=== PATIENT | female | born 1970 | race Caucasian/White ===

== ENCOUNTER 2016-06-11 18:32 | Inpatient (IN) | payer MEDICAID ==
[~2016-06-11] VITALS: Ht 175.3 cm; Wt 95.6 kg
[~2016-06-11 18:32] MED LIST: HYDR25TA5 PO; LEVO-168 PO; LISI10TA3 PO; LORA-475 PO; METO25TA3 PO; TOBRSUS9 RIGHT EYE
[2016-06-11 18:44] VITALS: BP 109/59; PULSE 124; RESP 16; TEMP 98.9; O2SAT 100
[2016-06-11 19:05] VITALS: O2SAT 100
[2016-06-11] MEDS ORDERED: SODIUM CHLOR 0.9% 1000 ML INJ 1,000 ML IV SCH (19:12)
[2016-06-11] MEDS ORDERED: PANTOPRAZOLE INJ 80 MG in SODIUM CHLORIDE 0.9% INJ 35 ML IV ONE (19:15)
[2016-06-11] MEDS ORDERED: SODIUM CHLORIDE 0.9% FLUSH 10 ML FLUSH IVF PRN (19:15)
[2016-06-11] MEDS ORDERED: ONDANSETRON HCL 4 MG/2 ML VIAL IVP ONE (19:15)
--- NOTE | 2016-06-11 19:20 | PD ---
HPI Chief Complaint: GI Complaint Time Seen by Provider: 19:06 Travel History International Travel<30 days: No Contact w/Intl Traveler<30days: No Traveled to known affect area: No History of Present Illness HPI This 45-year-old female says she been vomiting blood every 2 hours. She has never done this before. She has never had endoscopy done. 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 She's been feeling tired and dizzy. He drinks one to 2 drinks per day. She did have an ultrasound in 2014 which showed abnormal echo texture to the liver and enlarged spleen suggestive of cirrhosis and possible portal hypertension. She has a black stools today. She was taking 2 ibuprofen twice daily but has not taken any today history of Raynaud's. PFSH Past Medical History Hx Anticoagulant Therapy: Yes (8 WEEKS AGO) Asthma: No Autoimmune Disease: No Anxiety: Yes Depression: No Heart Rhythm Problems: No Cancer: No Cardiovascular Problems: Yes High Cholesterol: No Chest Pain: Yes Congestive Heart Failure: No COPD: No Cerebrovascular Accident: No Diabetes: No Diminished Hearing: No Genitourinary: No Headaches: Yes Hypertension: Yes Immune Disorder: No Musculoskeletal: Yes Neurologic: No Psychiatric: Yes Reproductive: No Respiratory: Yes (history of nosebleeds) Immunizations Current: Yes Migraines: Yes Seizures: No Sleep Apnea: No Thyroid Disease: Yes (Hypothyroidism) : 5 Para: 3 Miscarriage: 2 Past Surgical History Abdominal Surgery: No Body Medical Devices: 2 screws in her knee from acl surgery. Cardiac Surgery: No Ear Surgery: No Endocrine Surgery: No Eye Surgery: Yes (Lasik) Genitourinary Surgery: No Gynecologic Surgery: No Oral Surgery: No Thoracic Surgery: No Other Surgery: Yes (lt knee replacement) Social History Alcohol Use: No (QUIT 4 DAYS AGO) Tobacco Use: No Substance Use: No Allergies-Medications (Allergen,Severity, Reaction): Coded Allergies: Codeine (Verified Allergy, Severe, 06/11/16) RASH Darvocet-N 100 (Verified Allergy, Severe, 06/11/16) HIVES Biaxin (Verified Allergy, Intermediate, VOMITING, 06/11/16) Morphine (Verified Allergy, Unknown, HALUCINATIONS, 06/11/16) Reported Meds & Prescriptions Reported Meds & Active Scripts Active Reported Levothyroxine (Levothyroxine Sodium) 112 Mcg Tab 1 Tab PO DAILY Hydrochlorothiazide 25 Mg Tab 1 Tab PO DAILY Metoprolol Tartrate 25 Mg Tab 0.5 Tab PO PRN Review of Systems General / Constitutional: No: Fever Eyes: No: Diploplia, Blurred Vision HENT: No: Headaches, Vertigo Cardiovascular: No: Chest Pain or Discomfort, Palpitations Respiratory: No: Cough, Shortness of Breath Gastrointestinal: Positive: Vomiting Genitourinary: No: Frequency, Dysuria Musculoskeletal: No: Myalgias, Arthralgias Skin: No Rash Neurologic: Positive: Weakness, Dizziness Hematologic/Lymphatic: No: Easy Bruising Physical Exam Narrative GENERAL: Well-developed female. She has vomited blood while here SKIN: Focused skin assessment warm/dry. She does have some spider angioma HEAD: Atraumatic. Normocephalic. EYES: Pupils equal and round. No scleral icterus. No injection or drainage. ENT: No nasal bleeding or discharge. Mucous membranes pink and moist. NECK: Trachea midline. No JVD. CARDIOVASCULAR: Regular rate and rhythm. No murmur appreciated. RESPIRATORY: No accessory muscle use. Clear to auscultation. Breath sounds equal bilaterally. GASTROINTESTINAL: Abdomen soft, non-tender, nondistended. Hepatic and splenic margins not palpable. MUSCULOSKELETAL: No obvious deformities. No clubbing. No cyanosis. No edema. NEUROLOGICAL: Awake and alert. No obvious cranial nerve deficits. Motor grossly within normal limits. Normal speech. PSYCHIATRIC: Appropriate mood and affect; insight and judgment normal. Data Data Last Documented VS Vital Signs Date Time Temp Pulse Resp B/P Pulse Ox O2 Delivery O2 Flow Rate FiO2 06/11/16 18:44 98.9 124 16 109/59 100 Orders Complete Blood Count With Diff (06/11/16 19:12) Prothrombin Time / Inr (Pt) (06/11/16 19:12) Act Partial Throm Time (Ptt) (06/11/16 19:12) Alcohol (Ethanol) (06/11/16 19:12) Urinalysis - C+S If Indicated (06/11/16 19:12) Ecg Monitoring (06/11/16 19:12) Iv Access Insert/Monitor (06/11/16 19:12) Oximetry (06/11/16 19:12) Ondansetron Inj (Zofran Inj) (06/11/16 19:15) Sodium Chlor 0.9% 1000 Ml Inj (Ns 1000 M (06/11/16 19:12) Sodium Chloride 0.9% Flush (Ns Flush) (06/11/16 19:15) Pantoprazole Inj (Protonix Inj) (06/11/16 19:15) Pantoprazole Inj (Protonix Inj) (06/11/16 19:15) Phytonadione Inj (Vitamin K Inj) (06/11/16 20:15) Octreotide Inj (Sandostatin Inj) (06/11/16 22:15) Admit Order (Ed Use Only) (06/11/16 20:11) Labs Laboratory Tests Test 06/11/16 19:15 White Blood Count 8.5 TH/MM3 Red Blood Count 3.04 MIL/MM3 Hemoglobin 10.0 GM/DL Hematocrit 29.9 % Mean Corpuscular Volume 98.4 FL Mean Corpuscular Hemoglobin 33.0 PG Mean Corpuscular Hemoglobin 33.6 % Concent Red Cell Distribution Width 15.2 % Platelet Count 87 TH/MM3 Mean Platelet Volume 9.0 FL Neutrophils (%) (Auto) 81.3 % Lymphocytes (%) (Auto) 12.4 % Monocytes (%) (Auto) 5.6 % Eosinophils (%) (Auto) 0.0 % Basophils (%) (Auto) 0.7 % Neutrophils # (Auto) 6.8 TH/MM3 Lymphocytes # (Auto) 1.1 TH/MM3 Monocytes # (Auto) 0.5 TH/MM3 Eosinophils # (Auto) 0.0 TH/MM3 Basophils # (Auto) 0.1 TH/MM3 CBC Comment AUTO DIFF Prothrombin Time 21.4 SEC Prothromb Time International 1.9 RATIO Ratio Activated Partial 31.7 SEC Thromboplast Time Ethyl Alcohol Level 91 MG/DL [facility] Medical Decision Making Medical Screen Exam Complete: Yes Emergency Medical Condition: Yes Medical Record Reviewed: Yes Differential Diagnosis Differential includes GI bleed, coagulopathy, varices, portal hypertension Narrative Course Hemoglobin is 10. Her INR is 1.9. She has been given vitamin K. In giving fluids cautiously. She is quite adamant that she will not accept blood products including fresh frozen plasma. Case discussed with Dr. Cardenas She' ll be admitted to the intensive care unit Diagnosis Primary Impression: GI bleed Admitting Information Admitting Physician Requests: Admit Orville Flores MD Jun 11, 2016 19:20
[2016-06-11 19:41] LABS: AUTOMATED NEUTROPHIL # 6.8 TH/MM3 (1.8-7.7); BASOPHIL # 0.1 TH/MM3 (0-0.2); BASOPHIL % 0.7 % (0.0-2.0); HEMATOCRIT 29.9 % (35.0-46.0); LYMPH % 12.4 % (9.0-44.0); LYMPHOCYTE # 1.1 TH/MM3 (1.0-4.8); MEAN CELL VOLUME 98.4 FL (80.0-100.0); MEAN CORPUSCULAR HGB CONC 33.6 % (32.0-36.0); MONO % 5.6 % (0.0-8.0); NEUT % 81.3 % (16.0-70.0); PLATELET COUNT 87 TH/MM3 (150-450); RED BLOOD COUNT 3.04 MIL/MM3 (4.00-5.30); RED CELL DISTRIBUTION WIDTH 15.2 % (11.6-17.2); WHITE BLOOD COUNT 8.5 TH/MM3 (4.0-11.0)
[2016-06-11 19:53] LABS: APTT (PATIENT) 31.7 SEC (24.3-30.1); INTERNATIONAL NORMALIZED RATIO 1.9 RATIO; PROTHROMBIN TIME - PATIENT 21.4 SEC (9.8-11.6)
[2016-06-11] MEDS: PANTOPRAZOLE INJ 80 MG in SODIUM CHLORIDE 0.9% INJ 100 ML IV SCH (19:56)
[2016-06-11 20:04] LABS: HEMO FLAGS AUTO DIFF
[2016-06-11] MEDS ORDERED: PHYTONADIONE 10 MG/ML VIAL SQ ONE (20:15)
[2016-06-11 20:35] VITALS: BP 97/49; PULSE 108; RESP 18; TEMP 97.9; O2SAT 97
[2016-06-11 20:40] LABS: PLATELET ESTIMATE SMEAR LOW (NORMAL); PLATELET MORPHOLOGY ENLARGED (NORMAL); SCAN/DIFF AUTO DIFF CONFIRMED
[2016-06-11] MEDS: OCTREOTIDE INJ 500 MCG in SODIUM CHLORID 0.9% 500 ML INJ 499.5 ML IV SCH (21:06)
[2016-06-11 21:22] LABS: CHLORIDE 104 MEQ/L (98-107); POTASSIUM 4.7 MEQ/L (3.5-5.1); SODIUM (NA) 146 MEQ/L (136-145)
[2016-06-11 21:25] LABS: BLOOD UREA NITROGEN 27 MG/DL (7-18)
[2016-06-11 21:28] LABS: AST (GOT) 169 U/L (15-37); GLOMERULAR FILTRATION RATE 53 ML/MIN (>89)
[2016-06-11 21:30] VITALS: BP 99/42; PULSE 102; RESP 16; O2SAT 97
[2016-06-11 21:30] LABS: TOTAL BILIRUBIN ADULT 4.7 MG/DL (0.2-1.0)
[2016-06-11 21:34] LABS: ANION GAP 16 MEQ/L (5-15); BICARBONATE 25.6 MEQ/L (21.0-32.0)
[2016-06-11 21:38] LABS: ALT (GPT) 84 U/L (10-53)
[2016-06-11 21:41] LABS: ALKALINE PHOSPHATASE 79 U/L (45-117)
[2016-06-11 21:42] LABS: BLOOD, URINE NEG (NEG); GLUCOSE,URINE NEG (NEG); KETONE, URINE 15 mg/dL (NEG); NITRITE,URINE NEG (NEG)
[2016-06-11] MEDS ORDERED: ONDANSETRON HCL 4 MG/2 ML VIAL IV PUSH ONE (21:45)
[2016-06-11 21:47] LABS: URINE COLOR AMBER (YELLW/STRAW)
[2016-06-11 21:49] LABS: HYALINE CAST, URINE 0-2 /lpf (RARE)
[2016-06-11 21:50] LABS: RBC, URINE 0-3 /hpf (0-3); SQUAMOUS EPITHELIAL CELL URINE 0-5 /hpf (0-5); WBC, URINE 0-2 /hpf (0-5)
[2016-06-11 21:51] LABS: COMMENT (UR) CULT NOT INDICATED; CULTURE IF INDICATED CULT NOT INDICATED; MUCUS URINE FEW /lpf (OCC)
[2016-06-11] MEDS ORDERED: PROCHLORPERAZINE INJ 10 MG/2 ML VIAL IV PUSH ONE (22:00)
[2016-06-11 22:51] VITALS: BP 98/46; PULSE 112; RESP 16; TEMP 98.6; O2SAT 97
[2016-06-12] VITALS (16 sets, daily range): BP systolic 92–110; BP diastolic 50–57; PULSE 72–116; RESP 16–23; TEMP 98.4–99.5; O2SAT 94–100
--- NOTE | 2016-06-12 02:28 | HHI.HP ---
HPI Service Critical Care Medicine Primary Care Physician Oren Arceo Admission Diagnosis GI BLEED Diagnosis: Travel History International Travel<30 Days: No Contact w/Intl Traveler <30 Da: No Traveled to Known Affected Are: No History of Present Illness 45-year-old female , [facility] presented to [facility] emergency department due to she been vomiting blood every 2 hours. She has never done this before. She has never had endoscopy done. She refuses blood products due to early degenerative. She's been feeling tired and dizzy. She usually drinks one to 2 alcohol beverages per day. She did have an ultrasound in 2015 which showed abnormal echo texture to the liver and enlarged spleen suggestive of cirrhosis and possible portal hypertension. She has had a melanotic stool today and was also taking 2 ibuprofen twice daily for a history of Raynaud's. Review of Systems Constitutional: COMPLAINS OF: Fatigue, DENIES: Diaphoretic episodes, Fever, Weight gain, Weight loss, Chills, Dizziness, Change in appetite, Night Sweats Endocrine: DENIES: Abnorml menstrual pattern, Heat/cold intolerance, Polydipsia , Polyuria, Polyphagia Eyes: DENIES: Blurred vision, Diplopia, Eye inflammation, Eye pain, Vision loss , Photosensitivity, Double Vision Ears, nose, mouth, throat: DENIES: Tinnitus, Hearing loss, Vertigo, Nasal discharge, Oral lesions, Throat pain, Hoarseness, Ear Pain, Running Nose, Epistaxis, Sinus Pain, Toothache, Odynophagia Respiratory: DENIES: Apneas, Cough, Snoring, Wheezing, Hemoptysis, Sputum production, Shortness of breath Cardiovascular: DENIES: Chest pain, Palpitations, Syncope, Dyspnea on Exertion , PND, Lower Extremity Edema, Orthopnea, Claudication Gastrointestinal: COMPLAINS OF: Black stools, Bloody stools, Vomiting, DENIES : Abdominal pain, Constipation, Diarrhea, Nausea, Difficulty Swallowing, Anorexia Genitourinary: DENIES: Abnormal vaginal bleeding, Dysmenorrhea, Dyspareunia, Sexual dysfunction, Urinary frequency, Urinary incontinence, Urgency, Hematuria , Dysuria, Nocturia, Vaginal discharge Musculoskeletal: DENIES: Joint pain, Muscle aches, Stiffness, Joint Swelling, Back pain, Neck pain Integumentary: DENIES: Abnormal pigmentation, Pruritus, Rash, Nail changes, Breast masses, Breast skin changes, Nipple discharge Hematologic/lymphatic: DENIES: Bruising, Lymphadenopathy Immunologic/allergic: DENIES: Eczema, Urticaria Neurologic: DENIES: Abnormal gait, Headache, Localized weakness, Paresthesias, Seizures, Speech Problems, Tremor, Poor Balance Psychiatric: COMPLAINS OF: Anxiety, DENIES: Confusion, Mood changes, Depression, Hallucinations, Agitation, Suicidal Ideation, Homicidal Ideation, Delusions Past Family Social History Allergies: Coded Allergies: Codeine (Verified Allergy, Severe, 06/11/16) RASH Darvocet-N 100 (Verified Allergy, Severe, 06/11/16) HIVES Biaxin (Verified Allergy, Intermediate, VOMITING, 06/11/16) Morphine (Verified Allergy, Unknown, HALUCINATIONS, 06/11/16) Past Medical History Hypertension Raynaud's disease Anxiety Hypothyroidism Past Surgical History Eye LASIK surgery Cardiac cath 01/22 Reported Medications Reported Meds & Active Scripts Active Reported Levothyroxine (Levothyroxine Sodium) 112 Mcg Tab 1 Tab PO DAILY Hydrochlorothiazide 25 Mg Tab 1 Tab PO DAILY Metoprolol Tartrate 25 Mg Tab 0.5 Tab PO PRN Active Ordered Medications Current Medications Medications (Trade) Dose Ordered Sig/Miya Route PRN Reason Start Time Stop Time Status Last Admin Dose Admin Sodium Chloride 2 ml 2 ml UNSCH PRN IVF FLUSH AFTER USING IV ACCESS 06/11/16 19:15 Pantoprazole Sodium 80 mg/ Sodium Chloride 100 ml @ 10 mls/hr Q10H IV 06/11/16 19:15 06/11/16 19:56 Octreotide Acetate 500 mcg/ Sodium Chloride 500.0 ml @ 50 mls/hr Q10H IV 06/11/16 22:15 06/11/16 21:06 Sodium Chloride (NS 1000 ml Inj) 1,000 ml @ 125 mls/hr Q8H IV 06/12/16 02:24 Acetaminophen (Tylenol) 650 mg Q6H PRN PO PAIN 1-10 AND/OR FEVER >101F 06/12/16 02:30 Morphine Sulfate (Morphine Inj) 2 mg Q2H PRN IV PAIN SCALE 6 TO 10 06/12/16 02:30 Lorazepam (Ativan Inj) 2 mg Q4H PRN IV Agitation/Sedation 06/12/16 02:30 Ondansetron HCl (Zofran Inj) 4 mg Q6H PRN IV NAUSEA OR VOMITING 06/12/16 02:30 Metoclopramide HCl (Reglan Inj) 10 mg Q6H PRN IV NAUSEA OR VOMITING 06/12/16 02:30 Miscellaneous Information 1 Q361D XX 06/12/16 02:30 Chlorhexidine Gluconate (Chlorhexidine 2% Cloth) 3 pack Taper DAILY@04 TOP 06/12/16 04:00 06/08/17 03:59 Chlorhexidine Gluconate (Chlorhexidine 2% Cloth) 3 pack UNSCH PRN TOP HYGIENIC CARE 06/12/16 02:30 Levothyroxine Sodium (Synthroid) 112 mcg DAILY@06 PO 06/12/16 06:00 Family History Noncontributory Social History She drinks 2 alcoholic beverages per day Denies smoking or illicit drug abuse Physical Exam Vital Signs Vital Signs Date Time Temp Pulse Resp B/P Pulse Ox O2 Delivery O2 Flow Rate FiO2 06/12/16 01:20 116 16 92/50 96 Room Air 06/12/16 00:10 110 16 104/50 97 Room Air 06/11/16 23:00 16 06/11/16 22:51 98.6 112 16 98/46 97 Room Air 06/11/16 21:30 102 16 99/42 97 Room Air 06/11/16 20:35 97.9 108 18 97/49 97 Room Air 06/11/16 20:25 16 06/11/16 19:05 100 Room Air 06/11/16 18:44 98.9 124 16 109/59 100 Physical Exam GENERAL: Well-nourished, well-developed patient. No acute distress SKIN: Warm and dry. HEAD: Normocephalic. EYES: No scleral icterus. No injection or drainage. NECK: Supple, trachea midline. No JVD or lymphadenopathy. CARDIOVASCULAR: Regular rate and rhythm without murmurs, gallops, or rubs. RESPIRATORY: Breath sounds equal bilaterally. No accessory muscle use. GASTROINTESTINAL: Abdomen soft, non-tender, nondistended. MUSCULOSKELETAL: No cyanosis, or edema. BACK: Nontender without obvious deformity. No CVA tenderness. EXTREMITIES: No clubbing cyanosis or edema Laboratory Laboratory Tests Test 06/11/16 06/11/16 19:15 21:20 White Blood Count 8.5 Red Blood Count 3.04 Hemoglobin 10.0 Hematocrit 29.9 Mean Corpuscular Volume 98.4 Mean Corpuscular Hemoglobin 33.0 Mean Corpuscular Hemoglobin 33.6 Concent Red Cell Distribution Width 15.2 Platelet Count 87 Mean Platelet Volume 9.0 Neutrophils (%) (Auto) 81.3 Lymphocytes (%) (Auto) 12.4 Monocytes (%) (Auto) 5.6 Eosinophils (%) (Auto) 0.0 Basophils (%) (Auto) 0.7 Neutrophils # (Auto) 6.8 Lymphocytes # (Auto) 1.1 Monocytes # (Auto) 0.5 Eosinophils # (Auto) 0.0 Basophils # (Auto) 0.1 CBC Comment AUTO DIFF Differential Comment AUTO DIFF CONFIRMED Platelet Estimate LOW Platelet Morphology Comment ENLARGED Prothrombin Time 21.4 Prothromb Time International 1.9 Ratio Activated Partial 31.7 Thromboplast Time Sodium Level 146 Potassium Level 4.7 Chloride Level 104 Carbon Dioxide Level 25.6 Anion Gap 16 Blood Urea Nitrogen 27 Creatinine 1.10 Estimat Glomerular Filtration 53 Rate Random Glucose 153 Calcium Level 8.0 Total Bilirubin 4.7 Aspartate Amino Transf 169 (AST/SGOT) Alanine Aminotransferase 84 (ALT/SGPT) Alkaline Phosphatase 79 Total Protein 6.2 Albumin 2.8 Ethyl Alcohol Level 91 Urine Color INOCENCIO Urine Turbidity CLEAR Urine pH 6.0 Urine Specific [place] 1.022 Urine Protein NEG Urine Glucose (UA) NEG Urine Ketones 15 Urine Occult Blood NEG Urine Nitrite NEG Urine Bilirubin SMALL Urine Leukocyte Esterase NEG Urine RBC 0-3 Urine WBC 0-2 Urine Squamous Epithelial 0-5 Cells Urine Hyaline Casts 0-2 Urine Mucus FEW Microscopic Urinalysis Comment CULT NOT INDICATED Result Diagram: 06/11/16191406/11/161914 Assessment and Plan Assessment and Plan Hematemesis - Possibly variceal bleed - Portal hypertension - Admit to ICU - Serial H&H - Octreotide drip - Protonix drip - GI consult appreciated Hypothyroidism - Thyroxine Anemia - Due to above - Monitor serial H&H - Transfuse for hemoglobin less than 7 Questionable alcohol abuse - WA protocol - Monitor for withdrawal DVT GI prophylaxis - Teds SCDs - No Pharmacal prophylaxis due to GI bleed - Protonix drip Critical Care: The total critical care time was 35 minutes. Time to perform other separately billable procedures was not included in the critical care time. Bola Norton MD Jun 12, 2016 02:28
[2016-06-12] MEDS ORDERED: RESP: ALBUTEROL 2.5 MG/IPRATROPIUM 0.5 MG NEB (PRN) INH (02:30)
[2016-06-12] MEDS ORDERED: CHLORHEXIDINE GLUCONATE 2 % 1 PACK (2 CLOTHS) TOP PRN (02:30)
[2016-06-12] MEDS ORDERED: ONDANSETRON HCL 4 MG/2 ML VIAL IV PRN (02:30)
[2016-06-12] MEDS ORDERED: MISCELLANEOUS NURSING INFORMATION XX SCH (02:30)
[2016-06-12] MEDS ORDERED: MORPHINE SULFATE 4 MG/ML INJ IV PRN (02:30)
[2016-06-12] MEDS ORDERED: METOCLOPRAMIDE HCL 10 MG/2 ML VIAL IV PRN (02:30)
[2016-06-12] MEDS ORDERED: ACETAMINOPHEN 325 MG TAB PO PRN (02:30)
[2016-06-12 03:38] LABS: INTERNATIONAL NORMALIZED RATIO 2.1 RATIO; PROTHROMBIN TIME - PATIENT 23.5 SEC (9.8-11.6)
[2016-06-12 03:56] LABS: INDIRECT BILIRUBIN 2.5 MG/DL (0.0-0.8); TOTAL BILIRUBIN ADULT 5.6 MG/DL (0.2-1.0)
[2016-06-12] MEDS: CHLORHEXIDINE GLUCONATE 2 % 1 PACK (2 CLOTHS) TOP SCH (04:00)
[2016-06-12] MEDS: SODIUM CHLOR 0.9% 1000 ML INJ 1,000 ML IV SCH ×3 (04:05→18:24)
[2016-06-12] MEDS: PANTOPRAZOLE INJ 80 MG in SODIUM CHLORIDE 0.9% INJ 100 ML IV SCH ×3 (04:05→17:17)
[2016-06-12] MEDS ORDERED: LORazepam 2 MG/ML VIAL IV SCH (06:00)
[2016-06-12] MEDS ORDERED: FLUMAZENIL 0.5 MG/5 ML VIAL IV PUSH PRN (06:15)
[2016-06-12] MEDS ORDERED: LORazepam 2 MG/ML VIAL IV PUSH PRN ×4 (06:15)
[2016-06-12] MEDS ORDERED: LORazepam 2 MG TAB PO PRN (06:15)
[2016-06-12] MEDS ORDERED: SODIUM CHLORIDE 0.9% FLUSH 10 ML FLUSH IV FLUSH PRN (06:15)
[2016-06-12] MEDS: LEVOTHYROXINE SODIUM 112 MCG TAB PO SCH (06:19)
[2016-06-12] MEDS: OCTREOTIDE INJ 500 MCG in SODIUM CHLORID 0.9% 500 ML INJ 499.5 ML IV SCH ×2 (07:15→16:40)
[2016-06-12] MEDS: SODIUM CHLORIDE 0.9% FLUSH 10 ML FLUSH IV FLUSH SCH ×2 (08:07→21:00)
[2016-06-12] MEDS: MULTIVITAMIN INJ 10 ML, FOLIC ACID INJ 1 MG in SODIUM CHLORID 0.9% 500 ML INJ 500 ML IV SCH (08:07)
--- NOTE | 2016-06-12 08:43 | PD.CONS ---
HPI History of Present Illness This is a 45 year old female patient who came to the ER yesterday for hematemesis. She was given Ativan this am at 0619 and is currently very lethargic. She will wake up, but drifts back to sleep before answering any questions and is unable to provide any history. The history has been obtained from her mother (who is at the bedside) and the EMR. Her mother reports that she is a Jehovah Witness and does not want any blood products. Her mother reports that she started vomiting dark blood yesterday- about 1 cup every 2 hours. Her mother reports that she denied abdominal pain yesterday. Her mother also reports that she has never had GI bleeding in the past. There was mention of a melanotic stool yesterday. According to the EMR, she has been taking 2 ibuprofen twice daily for pain associated with Raynaud's. Her mother reports that she has cut back her drinking to 2 drinks per day. Of note, she had an US of her liver (01/31/15) and this revealed heterogeneous echotexture of the liver with enlargement of the spleen suggesting cirrhosis and portal hypertension. No ascites is seen within the abdomen. According to the mother, she has not had any further bleeding since [place]. (Lilian Hays) PFSH Past Medical History Raynaud's Liver cirrhosis Portal HTN ETOH abuse Anxiety HTN Hypothyroidism Past Surgical History LASIK surgery Cardiac catheterization (Lilian Hays) Coded Allergies: Codeine (Verified Allergy, Severe, 06/11/16) RASH Darvocet-N 100 (Verified Allergy, Severe, 06/11/16) HIVES Biaxin (Verified Allergy, Intermediate, VOMITING, 06/11/16) Morphine (Verified Allergy, Unknown, HALUCINATIONS, 06/11/16) Medications Allergies Coded Allergies Type Severity Reaction Last Updated Verified Codeine Allergy Severe 06/11/16 Yes Darvocet-N 100 Allergy Severe 06/11/16 Yes Biaxin Allergy Intermediate VOMITING 06/11/16 Yes Morphine Allergy Unknown HALUCINATIONS 06/11/16 Yes Active Scripts Medications Dose Route/Sig Days Date Category Levothyroxine (Levothyroxine Sodium) 112 Mcg Tab 1 Tab PO DAILY 02/09/16 Reported Hydrochlorothiazide 25 Mg Tab 1 Tab PO DAILY 02/09/16 Reported Metoprolol Tartrate 25 Mg Tab 0.5 Tab PO PRN 02/09/16 Reported Family History Noncontributory Social History She drinks 2 alcoholic beverages per day Denies smoking or illicit drug abuse (Lilian Hays) Review of Systems Gastrointestinal: COMPLAINS OF: Black stools, Nausea, Vomiting, Hematemesis ROS P)t lethargic after ativan- unable to provide hx (Lilian Hays) GI Exam Vitals I&O Vital Signs Date Time Temp Pulse Resp B/P Pulse Ox O2 Delivery O2 Flow Rate FiO2 06/12/16 06:00 98.8 101 16 100/55 95 06/12/16 06:00 100 06/12/16 04:00 99.1 100 16 102/57 100 06/12/16 04:00 80 06/12/16 03:01 100 Nasal Cannula 2.00 06/12/16 03:00 88 Nasal Cannula 2.00 06/12/16 02:00 104 06/12/16 01:20 116 16 92/50 96 Room Air 06/12/16 00:10 110 16 104/50 97 Room Air 06/11/16 23:00 16 06/11/16 22:51 98.6 112 16 98/46 97 Room Air 06/11/16 21:30 102 16 99/42 97 Room Air 06/11/16 20:35 97.9 108 18 97/49 97 Room Air 06/11/16 20:25 16 06/11/16 19:05 100 Room Air 06/11/16 18:44 98.9 124 16 109/59 100 I/O 06/11/16 06/11/16 06/11/16 06/12/16 06/12/16 06/12/16 07:00 15:00 23:00 07:00 15:00 23:00 Intake Total 50 ml 3562 ml Output Total 600 ml 0 ml Balance -550 ml 3562 ml Intake Oral 0 ml IV Total 50 ml 3562 ml Output Urine Total 0 ml Emesis 600 ml Laboratory Test 06/11/16 06/11/16 06/12/16 19:15 21:20 03:09 White Blood Count 8.5 TH/MM3 Red Blood Count 3.04 MIL/MM3 Hemoglobin 10.0 GM/DL Hematocrit 29.9 % Mean Corpuscular Volume 98.4 FL Mean Corpuscular Hemoglobin 33.0 PG Mean Corpuscular Hemoglobin 33.6 % Concent Red Cell Distribution Width 15.2 % Platelet Count 87 TH/MM3 Mean Platelet Volume 9.0 FL Neutrophils (%) (Auto) 81.3 % Lymphocytes (%) (Auto) 12.4 % Monocytes (%) (Auto) 5.6 % Eosinophils (%) (Auto) 0.0 % Basophils (%) (Auto) 0.7 % Neutrophils # (Auto) 6.8 TH/MM3 Lymphocytes # (Auto) 1.1 TH/MM3 Monocytes # (Auto) 0.5 TH/MM3 Eosinophils # (Auto) 0.0 TH/MM3 Basophils # (Auto) 0.1 TH/MM3 CBC Comment AUTO DIFF Differential Comment AUTO DIFF CONFIRMED Platelet Estimate LOW Platelet Morphology Comment ENLARGED Prothrombin Time 21.4 SEC 23.5 SEC Prothromb Time International 1.9 RATIO 2.1 RATIO Ratio Activated Partial 31.7 SEC Thromboplast Time Sodium Level 146 MEQ/L Potassium Level 4.7 MEQ/L Chloride Level 104 MEQ/L Carbon Dioxide Level 25.6 MEQ/L Anion Gap 16 MEQ/L Blood Urea Nitrogen 27 MG/DL Creatinine 1.10 MG/DL Estimat Glomerular Filtration 53 ML/MIN Rate Random Glucose 153 MG/DL Calcium Level 8.0 MG/DL Total Bilirubin 4.7 MG/DL 5.6 MG/DL Aspartate Amino Transf 169 U/L 161 U/L (AST/SGOT) Alanine Aminotransferase 84 U/L 80 U/L (ALT/SGPT) Alkaline Phosphatase 79 U/L 65 U/L Total Protein 6.2 GM/DL 5.5 GM/DL Albumin 2.8 GM/DL 2.5 GM/DL Ethyl Alcohol Level 91 MG/DL Urine Color INOCENCIO Urine Turbidity CLEAR Urine pH 6.0 Urine Specific [place] 1.022 Urine Protein NEG mg/dL Urine Glucose (UA) NEG mg/dL Urine Ketones 15 mg/dL Urine Occult Blood NEG Urine Nitrite NEG Urine Bilirubin SMALL Urine Leukocyte Esterase NEG Urine RBC 0-3 /hpf Urine WBC 0-2 /hpf Urine Squamous Epithelial 0-5 /hpf Cells Urine Hyaline Casts 0-2 /lpf Urine Mucus FEW /lpf Microscopic Urinalysis Comment CULT NOT INDICATED Direct Bilirubin 3.1 MG/DL Indirect Bilirubin 2.5 MG/DL Ammonia 82 MCMOL/L Physical Examination HEENT: Normocephalic; atraumatic; no jaundice. CHEST: CTA CARDIAC: RRR ABDOMEN: Soft, nondistended, nontender; hepatosplenomegaly; bowel sounds are present in all four quadrants. EXTREMITIES: No clubbing, cyanosis, or edema. SKIN: Normal; no rash; no jaundice. 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 Mother reports hx of "liver issues." 2015 US consistent with cirrhosis and portal htn. Pt continues to drink 2 ETOH drinks per day. Came to ER with vomiting dark red blood- 1 cup q2h yest. Has not vomited since [place]. HH stable 10.0/29.9. Protonix Gtt. Octreotide Gtt. Takes Ibuprofen ii po BID. - Anemia, acute blood loss. HH stable 10.0/29.9. PT Jehovah Witness - Elevated LFTs. T> Bili 5.6, Direct 3.1, Indirect 2.5, AST 161, ALT 80, Alk Phosph 65. - Hepatic encephalopathy. Ammonia 82. Will start Lactulose. - Coagulopathy. INR 2.1. Does not want blood products. - Liver cirrhosis, portal htn. She appears to have had this at least as far back as 2014. She continues to drink - Hypothyroidism. Per primary. - PT IS A JEHOVAH WITNESS. NO BLOOD PRODUCTS. PLAN: - Plan for egd with possible band ligation - Obtain consents - NPO - Cont. Octreotide - Cont. Protonix Gtt - Lactulose 30mL po BID - CBC, CMP, PT/INR - No Blood Products - Supportive care - Further recommendations to follow based on results of above - Pt seen and examined by Dr. Melgoza and myself and this note is written on his behalf (Lilian Hays) Physician Comments Seen and examined with DON, admitted with gi bleed in the back ground of cirrhosis. Egd planned for today. Will follow, thank you (Kita Melgoza MD) Lilian Hays Jun 12, 2016 08:43 Kita Melgoza MD Jun 12, 2016 11:13
[2016-06-12] MEDS: LACTULOSE SYRUP 20 GM/30 ML CUP PO SCH ×2 (09:46→21:25)
[2016-06-12] MEDS ORDERED: PHYTONADIONE 10 MG/ML VIAL SQ ONE (10:15)
[2016-06-12] MEDS ORDERED: ONDANSETRON HCL 4 MG/2 ML VIAL IV PUSH ONE (12:47)
[2016-06-12] MEDS ORDERED: PHENYLEPHRINE HCL 10 MG/ML VIAL IV ONE (12:50)
[2016-06-12] MEDS ORDERED: PROPOFOL 200 MG/20 ML AMP IV ONE (12:50)
--- NOTE | 2016-06-12 12:57 | GIPROC ---
[facility] [address] [facility] [address]. [facility], [address] EGD PROCEDURE REPORT EXAM DATE: 06/12/2016 PATIENT NAME: Nava Joe MR #: [id number] BIRTHDATE: 1970 ATTENDING: Kita Melgoza MD ORDER #: [id number] EDITOR INDEX: Chevy Houser and Margaux Cabrera STATUS: inpatient INDICATIONS: The patient is a 45 yr old female here for an EGD due to Cirrhosis and melena PROCEDURE PERFORMED: EGD, diagnostic MEDICATIONS: Per Anesthesia and None. TOPICAL ANESTHETIC: CONSENT: The patient understands the risks and benefits of the procedure and understands that these risks include, but are not limited to: sedation, allergic reaction, infection, perforation and/or bleeding. Alternative means of evaluation and treatment include, among others: physical exam, x-rays, and/or surgical intervention. The patient elects to proceed with this endoscopic procedure. medical equipment was checked for proper function. Hand hygiene and appropriate measures for infection prevention was taken. After the risks, benefits and alternatives of the procedure were thoroughly explained, Informed consent was verified, confirmed and timeout was successfully executed by the treatment team. The patient was anesthetized with topical anesthesia and the Pentax EG-[id number] endoscope was introduced through the mouth and advanced to the second portion of the duodenum. Retroflexed views revealed no abnormalities The gastroscope was then slowly withdrawn and removed. ESOPHAGUS: There was LA Class A esophagitis noted. There was a single small varix in the distal esophagus. There was evidence of prior scarring and a red nora sign. STOMACH: There was moderate and erosive gastritis in the gastric antrum. Moderate portal hypertensive gastropathy was found in the gastric fundus. ADVERSE EVENTS: There were no complications. IMPRESSIONS: 1. There was LA Class A esophagitis noted 2. There was gastritis in the gastric antrum 3. Portal hypertensive gastropathy was found in the gastric fundus 4. Retroflexed views revealed no abnormalities RECOMMENDATIONS: 1. Anti-reflux regimen 2. Continue PPI 3. Avoid NSAIDS 4. Avoid ETOH, Continue PPI, and Octreotide. PATIENT CONDITION: stable DISPOSITION: Inpatient REPEAT EXAM: Return 3 months EGD with sclerotherapy Kita Melgoza MD eSigned: Kita Melgoza MD 06/12/2016 12:56 PM cc: PATIENT NAME: Nava Joe MR#: [id number]
[2016-06-12] MEDS ORDERED: DO NOT ADM ANY ANTICOAGULANT DRUGS PRN (13:02)
[2016-06-13] VITALS (16 sets, daily range): BP systolic 98–130; BP diastolic 52–82; PULSE 82–127; RESP 20–29; TEMP 98.5–99.3; O2SAT 94–100
[2016-06-13] MEDS: SODIUM CHLOR 0.9% 1000 ML INJ 1,000 ML IV SCH ×4 (01:48→18:10)
[2016-06-13] MEDS: CHLORHEXIDINE GLUCONATE 2 % 1 PACK (2 CLOTHS) TOP SCH (03:25)
[2016-06-13 04:31] LABS: AUTOMATED NEUTROPHIL # 4.3 TH/MM3 (1.8-7.7); BASOPHIL # 0.1 TH/MM3 (0-0.2); BASOPHIL % 1.1 % (0.0-2.0); EOSINOPHIL # 0.2 TH/MM3 (0-0.4); EOSINOPHIL % 2.7 % (0.0-4.0); LYMPH % 16.4 % (9.0-44.0); MEAN CELL VOLUME 101.3 FL (80.0-100.0); MEAN CORPUSCULAR HEMOGLOBIN 34.7 PG (27.0-34.0); MEAN CORPUSCULAR HGB CONC 34.2 % (32.0-36.0); MONO % 9.6 % (0.0-8.0); NEUT % 70.2 % (16.0-70.0); PLATELET COUNT 47 TH/MM3 (150-450); RED BLOOD COUNT 1.95 MIL/MM3 (4.00-5.30); RED CELL DISTRIBUTION WIDTH 15.9 % (11.6-17.2); WHITE BLOOD COUNT 6.1 TH/MM3 (4.0-11.0)
[2016-06-13 04:33] LABS: HEMO FLAGS AUTO DIFF
[2016-06-13 04:40] LABS: HEMATOCRIT 19.7 % (35.0-46.0)
[2016-06-13 04:44] LABS: PROTHROMBIN TIME - PATIENT 23.2 SEC (9.8-11.6)
[2016-06-13 04:51] LABS: BICARBONATE 28.8 MEQ/L (21.0-32.0); CALCIUM-PROTEIN CORRECTED 7.7 MG/DL (8.5-10.1); MAGNESIUM 1.6 MG/DL (1.5-2.5); POTASSIUM 3.8 MEQ/L (3.5-5.1); TOTAL BILIRUBIN ADULT 4.4 MG/DL (0.2-1.0)
[2016-06-13] MEDS: OCTREOTIDE INJ 500 MCG in SODIUM CHLORID 0.9% 500 ML INJ 499.5 ML IV SCH ×2 (04:51→14:15)
[2016-06-13] MEDS: LEVOTHYROXINE SODIUM 112 MCG TAB PO SCH (06:02)
[2016-06-13 06:12] LABS: SCAN/DIFF AUTO DIFF CONFIRMED
[2016-06-13 06:13] LABS: PLATELET ESTIMATE SMEAR LOW (NORMAL); PLATELET MORPHOLOGY ENLARGED (NORMAL)
[2016-06-13] MEDS ORDERED: EPOETIN ALFA 40,000 UNITS/ML VIAL SQ ONE (07:30)
[2016-06-13] MEDS ORDERED: CYANOCOBALAMIN 1000 MCG/ML VIAL IM ONE (07:45)
[2016-06-13] MEDS: MULTIVITAMIN INJ 10 ML, FOLIC ACID INJ 1 MG in SODIUM CHLORID 0.9% 500 ML INJ 500 ML IV SCH (08:34)
[2016-06-13] MEDS: LACTULOSE SYRUP 20 GM/30 ML CUP PO SCH ×2 (08:34→21:26)
[2016-06-13] MEDS: PANTOPRAZOLE INJ 80 MG in SODIUM CHLORIDE 0.9% INJ 100 ML IV SCH ×2 (08:34→18:47)
[2016-06-13] MEDS: SODIUM CHLORIDE 0.9% FLUSH 10 ML FLUSH IV FLUSH SCH ×2 (08:50→21:00)
[2016-06-13] MEDS: IRON SUCROSE INJ 200 MG in SODIUM CHLORIDE 0.9% INJ 100 ML IV SCH (09:55)
--- NOTE | 2016-06-13 13:20 | HHI.GIFU ---
Subjective Remarks Sitting up in bed in no distress. No nausea/vomiting. No obvious bleeding. ( Lilian Hays) Objective Vitals I&O Vital Signs Date Time Temp Pulse Resp B/P Pulse Ox O2 Delivery O2 Flow Rate FiO2 06/13/16 10:00 84 06/13/16 08:59 98 Nasal Cannula 1.00 06/13/16 08:00 98.9 82 23 119/59 98 06/13/16 08:00 82 06/13/16 07:00 98 Nasal Cannula 2.00 06/13/16 06:00 92 06/13/16 04:00 99.0 85 24 109/57 100 06/13/16 04:00 85 06/13/16 02:00 90 06/13/16 00:00 98.5 86 20 98/52 99 06/13/16 00:00 127 06/12/16 22:00 90 06/12/16 20:00 100 06/12/16 20:00 99.5 100 23 97/50 98 06/12/16 19:00 96 Nasal Cannula 2.00 06/12/16 19:00 100 Nasal Cannula 2.00 06/12/16 18:00 85 06/12/16 16:00 98.4 85 18 103/51 98 06/12/16 16:00 83 06/12/16 14:00 83 06/12/16 13:28 98.2 82 14 103/60 96 Nasal Cannula 3 06/12/16 13:15 84 14 100/63 96 Nasal Cannula 3 I/O 06/12/16 06/12/16 06/12/16 06/13/16 06/13/16 06/13/16 07:00 15:00 23:00 07:00 15:00 23:00 Intake Total 3562 ml 1453 ml 1103 ml 1805 ml Output Total 0 ml 203 ml 502 ml 452 ml Balance 3562 ml 1250 ml 601 ml 1353 ml Intake Oral 0 ml 0 ml 480 ml 480 ml IV Total 3562 ml 1453 ml 623 ml 1325 ml Output Urine Total 0 ml 200 ml 500 ml 450 ml Stool Total 3 ml 2 ml 2 ml # Voids 0 Laboratory Laboratory Tests Test 06/13/16 03:49 White Blood Count 6.1 Red Blood Count 1.95 Hemoglobin 6.8 Hematocrit 19.7 Mean Corpuscular Volume 101.3 Mean Corpuscular Hemoglobin 34.7 Mean Corpuscular Hemoglobin 34.2 Concent Red Cell Distribution Width 15.9 Platelet Count 47 Mean Platelet Volume 10.2 Neutrophils (%) (Auto) 70.2 Lymphocytes (%) (Auto) 16.4 Monocytes (%) (Auto) 9.6 Eosinophils (%) (Auto) 2.7 Basophils (%) (Auto) 1.1 Neutrophils # (Auto) 4.3 Lymphocytes # (Auto) 1.0 Monocytes # (Auto) 0.6 Eosinophils # (Auto) 0.2 Basophils # (Auto) 0.1 CBC Comment AUTO DIFF Differential Comment AUTO DIFF CONFIRMED Platelet Estimate LOW Platelet Morphology Comment ENLARGED Prothrombin Time 23.2 Prothromb Time International 2.0 Ratio Sodium Level 143 Potassium Level 3.8 Chloride Level 107 Carbon Dioxide Level 28.8 Anion Gap 7 Blood Urea Nitrogen 27 Creatinine 1.20 Estimat Glomerular Filtration 48 Rate Random Glucose 161 Calcium Level 6.6 Protein Corrected Calcium 7.7 Phosphorus Level 1.2 Magnesium Level 1.6 Total Bilirubin 4.4 Aspartate Amino Transf 149 (AST/SGOT) Alanine Aminotransferase 71 (ALT/SGPT) Alkaline Phosphatase 58 Total Protein 5.0 Albumin 2.4 Physical Exam HEENT: Normocephalic; atraumatic; no jaundice. CHEST: CTA CARDIAC: RRR ABDOMEN: Soft, nondistended, nontender; no hepatosplenomegaly; bowel sounds are present in all four quadrants. EXTREMITIES: No clubbing, cyanosis, or edema. SKIN: Normal; no rash; no jaundice. HAIR OR BEAUTY SALON ASSISTANT: No focal deficits; alert and oriented times three. (Lilian Hays) Assessment and Plan Plan ASSESSMENT: - Upper GI bleed with hx of liver cirrhosis/portal htn/ongoing ETOH use. Mother reports hx of "liver issues." 2015 US consistent with cirrhosis and portal htn. Pt continues to drink 2 ETOH drinks per day. Came to ER with vomiting dark red blood- 1 cup q2h yest. Takes Ibuprofen ii po BID. S/P EGD (06/12/16)-----> LA Class A esophagitis noted, gastritis in the gastric antrum, portal hypertensive gastropathy was found in susan gastric fundus, retroflexed views revealed no abnormalities. Pt has not had any further obvious GI bleeding, but her H/H went from 10.0/29.9 on 06/11 to 6.8.7. She is a Jehovah witness and does not want any blood products- including plasma/PRBC/Cryo. She is on Iron Sucrose, S/P Epogen, Vitamin B12. Will continue the octreotide and PPI at today and see what bleeding scan shows. - Anemia, acute blood loss. .10/26.. She is a Jehovah witness and does not want any blood products-including plasma/PRBC/Cryo. She is on Iron Sucrose, S/P Epogen, Vitamin B12. PT Jehovah Witness - Elevated LFTs. T> Bili 4.4, AST 149, ALT 71, Alk Phosph 58. - Hepatic encephalopathy. Lactulose, clinically much improved. - Coagulopathy. INR 2.0. Does not want blood products. Vitamin K - Liver cirrhosis, portal htn. She appears to have had this at least as far back as 2014. She continues to drink - Hypothyroidism. Per primary. - PT IS A JEHOVAH WITNESS. NO BLOOD PRODUCTS. PLAN: - Bleeding scan today - S/P Epogen - Cont. Iron Sucrose - Cont. Octreotide - Cont. Protonix Gtt - Cont. Lactulose - Give Vitamin K 10mg sq today and tomorrow - Monitor labs CBC, CMP, PT/INR - No Blood Products - Supportive care - D/W patient importance of no NSAIDS, complete ETOH cessation - Further recommendations to follow based on results of above - Pt seen and examined by Dr. Melgoza and myself and this note is written on his behalf (Lilian Hays) Physician Comments Seen and examined , no active bleeding although H/H dropped today. Bleeding scan -ve. Monitor labs, ETOH cessation recommended. Diet as tolerated. (Kita Melgoza MD) Lilian Hays Jun 13, 2016 13:20 Kita Melgoza MD Jun 13, 2016 19:15
--- NOTE | 2016-06-13 14:23 | HHI.CCPN ---
Subjective Remarks/Hospital Course 06/12: 45-year-old female , Yazidism presented to [place] emergency department due to she been vomiting blood every 2 hours. She has never done this before. She has never had endoscopy done. She refuses blood products due to early degenerative. She's been feeling tired and dizzy. She usually drinks one to 2 alcohol beverages per day. She did have an ultrasound in 2014 which showed abnormal echo texture to the liver and enlarged spleen suggestive of cirrhosis and possible portal hypertension. She has had a melanotic stool today and was also taking 2 ibuprofen twice daily for a history of Raynaud's. 06/13: Abdomen has dropped to 6.8 today. Patient is not tachycardic or hypotensive and appears in no acute distress. Has passed some black tarry stools however no fresh bleeding noted per night worker RN. Remains on IV fluids. Started Epogen/iron sucrose IV and parenteral B-12/folate. Minimize blood draws as patient is a Yazidism Objective Vital Signs Date Time Temp Pulse Resp B/P Pulse Ox O2 Delivery O2 Flow Rate FiO2 06/13/16 10:00 84 06/13/16 08:59 98 Nasal Cannula 1.00 06/13/16 08:00 98.9 23 119/59 Intake and Output 06/12/16 06/12/16 06/13/16 08:00 16:00 00:00 Intake Total 3562 ml 1453 ml 1103 ml Output Total 0 ml 203 ml 502 ml Balance 3562 ml 1250 ml 601 ml Result Diagram: 06/13/16 0349 06/13/16 0349 Objective Remarks GENERAL: Well-nourished, well-developed patient. No acute distress SKIN: Warm and dry. HEAD: Normocephalic. EYES: No scleral icterus. No injection or drainage. NECK: Supple, trachea midline. No JVD or lymphadenopathy. CARDIOVASCULAR: Regular rate and rhythm without murmurs, gallops, or rubs. RESPIRATORY: Breath sounds equal bilaterally. No accessory muscle use. GASTROINTESTINAL: Abdomen soft, non-tender, nondistended. MUSCULOSKELETAL: No cyanosis, or edema. BACK: Nontender without obvious deformity. No CVA tenderness. EXTREMITIES: No clubbing cyanosis or edema A/P Assessment and Plan Hematemesis -Gastric ulcer Esophageal varices - Portal hypertension - Continue monitoring in ICU -Hemoglobin dropped to 6.8. - Octreotide drip - Protonix drip - GI following. Bleeding scan planned. Hypothyroidism - Thyroxine Anemia/ thrombocytopenia - Due to above -Daily CBC -No blood product transfusion as patient is a Yazidism and refuses blood products. - High-dose erythropoietin 40,000 units subcutaneously 1 dose today, IV iron sucrose 200 mg IV daily for 5 days, parenteral MVI/folate. Questionable alcohol abuse - [facility] protocol - Monitor for withdrawal DVT GI prophylaxis - Teds SCDs - No Pharmacal prophylaxis due to GI bleed - Protonix drip D/W GI [employer] DRIVER Freedom Kirkpatrick MD Jun 13, 2016 14:23
[2016-06-13] MEDS ORDERED: SODIUM PHOSPHATE INJ 30 MMOL in SODIUM CHLOR 0.9% 250 ML INJ 250 ML IV ONE (14:30)
[2016-06-13] MEDS ORDERED: CALCIUM GLUCONATE INJ 2 GM in DEXTROSE 5% IN WATER 100ML INJ 100 ML IV ONE ×2 (14:30)
[2016-06-13] MEDS: PHYTONADIONE 10 MG/ML VIAL SQ SCH (17:16)
[2016-06-13] MEDS: MAGNESIUM SULFATE 1 GM PREMIX 100 ML IV SCH ×2 (17:17→18:10)
--- NOTE | 2016-06-13 17:23 | RADRPT ---
EXAM DATE/TIME: 06/13/2016 15:20 [facility] COMPARISON: No previous studies available for comparison. INDICATIONS : Anemia, blood in stool and vomiting blood. DOSE: 20.1 mCi Tc99m Ultratag labeled red blood cells IV IMAGIN hr MEDICAL HISTORY : Cirrhosis. Hypothyroidism. Portal hypertension. SURGICAL HISTORY : ACL surgery. ENCOUNTER: Initial ACUITY: 1 day PAIN SCALE: 2/10 LOCATION: Bilateral Abdomen. TECHNIQUE: Following the modified in vitro labeling of autologous red cells, dynamic continuous images were acqu ired for the specified interval. FINDINGS: BIODISTRIBUTION: There is a very good labeling of red cells without significant uptake in the gastric wall. There is good delineation of the blood pool of the spleen and abdominal vessels. BLEEDING: No episodes of active GI bleeding are observed during specified interval of continuous observation. A ctivity in the deep pelvis I believe is the urinary bladder CONCLUSION: No active bleeding identified. Mayco Koo MD on June 13, 2016 at 17:19 Board Certified Radiologist. This report was verified electronically.
[2016-06-14] VITALS (13 sets, daily range): BP systolic 103–164; BP diastolic 53–103; PULSE 62–101; RESP 20–35; TEMP 97.9–99.2; O2SAT 85–97
[2016-06-14] MEDS: CHLORHEXIDINE GLUCONATE 2 % 1 PACK (2 CLOTHS) TOP SCH (00:20)
[2016-06-14] MEDS: SODIUM CHLOR 0.9% 1000 ML INJ 1,000 ML IV SCH (00:27)
[2016-06-14] MEDS: OCTREOTIDE INJ 500 MCG in SODIUM CHLORID 0.9% 500 ML INJ 499.5 ML IV SCH ×2 (00:27→09:41)
[2016-06-14] MEDS: LORazepam 1 MG TAB PO PRN (00:38)
[2016-06-14] MEDS: PANTOPRAZOLE INJ 80 MG in SODIUM CHLORIDE 0.9% INJ 100 ML IV SCH ×2 (00:38→10:07)
[2016-06-14] MEDS: LEVOTHYROXINE SODIUM 112 MCG TAB PO SCH (04:53)
[2016-06-14 06:00] LABS: AUTOMATED NEUTROPHIL # 4.2 TH/MM3 (1.8-7.7); BASOPHIL % 0.3 % (0.0-2.0); EOSINOPHIL # 0.3 TH/MM3 (0-0.4); LYMPHOCYTE # 1.1 TH/MM3 (1.0-4.8); MEAN CORPUSCULAR HEMOGLOBIN 35.4 PG (27.0-34.0); MEAN CORPUSCULAR HGB CONC 34.7 % (32.0-36.0); MONO % 10.2 % (0.0-8.0); NEUT % 67.5 % (16.0-70.0); PLATELET COUNT 48 TH/MM3 (150-450); RED BLOOD COUNT 2.01 MIL/MM3 (4.00-5.30); RED CELL DISTRIBUTION WIDTH 15.7 % (11.6-17.2); WHITE BLOOD COUNT 6.2 TH/MM3 (4.0-11.0)
[2016-06-14 06:05] LABS: HEMO FLAGS AUTO DIFF
[2016-06-14 06:07] LABS: HEMATOCRIT 20.5 % (35.0-46.0)
[2016-06-14 06:24] LABS: BICARBONATE 24.2 MEQ/L (21.0-32.0); POTASSIUM 3.5 MEQ/L (3.5-5.1); TOTAL BILIRUBIN ADULT 5.4 MG/DL (0.2-1.0)
[2016-06-14 06:26] LABS: CALCIUM-PROTEIN CORRECTED 7.4 MG/DL (8.5-10.1)
[2016-06-14 07:05] LABS: PLATELET ESTIMATE SMEAR LOW (NORMAL); PLATELET MORPHOLOGY NORMAL (NORMAL); SCAN/DIFF AUTO DIFF CONFIRMED
[2016-06-14] MEDS: PHYTONADIONE 10 MG/ML VIAL SQ SCH (08:05)
[2016-06-14] MEDS: LACTULOSE SYRUP 20 GM/30 ML CUP PO SCH ×2 (08:05→21:00)
[2016-06-14] MEDS: MULTIVITAMIN INJ 10 ML, FOLIC ACID INJ 1 MG in SODIUM CHLORID 0.9% 500 ML INJ 500 ML IV SCH (08:21)
[2016-06-14] MEDS: SODIUM CHLORIDE 0.9% FLUSH 10 ML FLUSH IV FLUSH SCH ×2 (09:00→21:00)
[2016-06-14] MEDS: IRON SUCROSE INJ 200 MG in SODIUM CHLORIDE 0.9% INJ 100 ML IV SCH (10:06)
[2016-06-14] MEDS ORDERED: CALCIUM GLUCONATE INJ 1 GM in SODIUM CHLORIDE 0.9% INJ 100 ML IV ONE (10:45)
[2016-06-14] MEDS ORDERED: RESP: ALBUTEROL 2.5 MG/IPRATROPIUM 0.5 MG NEB (PRN) NEB (10:45)
--- NOTE | 2016-06-14 11:11 | HHI.CCPN ---
Subjective Remarks/Hospital Course 06/12: 45-year-old female , Sikh presented to [place] emergency department due to she been vomiting blood every 2 hours. She has never done this before. She has never had endoscopy done. She refuses blood products due to early degenerative. She's been feeling tired and dizzy. She usually drinks one to 2 alcohol beverages per day. She did have an ultrasound in 2014 which showed abnormal echo texture to the liver and enlarged spleen suggestive of cirrhosis and possible portal hypertension. She has had a melanotic stool today and was also taking 2 ibuprofen twice daily for a history of Raynaud's. 06/13: Abdomen has dropped to 6.8 today. Patient is not tachycardic or hypotensive and appears in no acute distress. Has passed some black tarry stools however no fresh bleeding noted per night club manager RN. Remains on IV fluids. Started Epogen/iron sucrose IV and parenteral B-12/folate. Minimize blood draws as patient is a Sikh 06/14 Patient is awake and alert lying in be din NAD. On Protonix and Sandostatin drips. Hgb 7.1 this morning. Bleeding scan yesterday showed no active bleeding identified Objective Vital Signs Date Time Temp Pulse Resp B/P Pulse Ox O2 Delivery O2 Flow Rate FiO2 06/14/16 06:00 94 06/14/16 04:00 99.0 23 121/69 95 06/13/16 20:00 Nasal Cannula 2.00 Intake and Output 06/13/16 06/13/16 06/14/16 08:00 16:00 00:00 Intake Total 1805 ml 1916 ml 1970 ml Output Total 452 ml 400 ml 400 ml Balance 1353 ml 1516 ml 1570 ml Result Diagram: 06/14/16 0546 06/14/16 0546 Other Results Laboratory Tests Test 06/14/16 05:46 White Blood Count 6.2 TH/MM3 Red Blood Count 2.01 MIL/MM3 Hemoglobin 7.1 GM/DL Hematocrit 20.5 % Mean Corpuscular Volume 102.0 FL Mean Corpuscular Hemoglobin 35.4 PG Mean Corpuscular Hemoglobin 34.7 % Concent Red Cell Distribution Width 15.7 % Platelet Count 48 TH/MM3 Mean Platelet Volume 9.7 FL Neutrophils (%) (Auto) 67.5 % Lymphocytes (%) (Auto) 17.0 % Monocytes (%) (Auto) 10.2 % Eosinophils (%) (Auto) 5.0 % Basophils (%) (Auto) 0.3 % Neutrophils # (Auto) 4.2 TH/MM3 Lymphocytes # (Auto) 1.1 TH/MM3 Monocytes # (Auto) 0.6 TH/MM3 Eosinophils # (Auto) 0.3 TH/MM3 Basophils # (Auto) 0.0 TH/MM3 CBC Comment AUTO DIFF Differential Comment AUTO DIFF CONFIRMED Platelet Estimate LOW Platelet Morphology Comment NORMAL Sodium Level 143 MEQ/L Potassium Level 3.5 MEQ/L Chloride Level 110 MEQ/L Carbon Dioxide Level 24.2 MEQ/L Anion Gap 9 MEQ/L Blood Urea Nitrogen 11 MG/DL Creatinine 1.09 MG/DL Estimat Glomerular Filtration 54 ML/MIN Rate Random Glucose 151 MG/DL Calcium Level 6.6 MG/DL Protein Corrected Calcium 7.4 MG/DL Total Bilirubin 5.4 MG/DL Aspartate Amino Transf 167 U/L (AST/SGOT) Alanine Aminotransferase 84 U/L (ALT/SGPT) Alkaline Phosphatase 65 U/L Total Protein 5.4 GM/DL Albumin 2.7 GM/DL Imaging Last Impressions GI Bleed Scan Nuclear Medicine 06/13/16 0000 Signed Impressions: Service Date/Time: June 15:20 - CONCLUSION: No active bleeding identified. Mayco Koo MD Objective Remarks GENERAL: Well-nourished, well-developed patient. No acute distress SKIN: Warm and dry. HEAD: Normocephalic. EYES: No scleral icterus. No injection or drainage. NECK: Supple, trachea midline. No JVD or lymphadenopathy. CARDIOVASCULAR: Regular rate and rhythm without murmurs, gallops, or rubs. RESPIRATORY: Breath sounds equal bilaterally. No accessory muscle use. GASTROINTESTINAL: Abdomen soft, non-tender, nondistended. MUSCULOSKELETAL: No cyanosis, or edema. BACK: Nontender without obvious deformity. No CVA tenderness. 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 On Lactulose 30ml BID monitor Ammonia level. Pulm: Continue with oxygen keep sat >92% Bronchodilators PRN CV: Monitor HR and BP keep MAP>65mmHg : Monitor renal function, I/Os', electrolytes replacement as needed GI: On Protonix and Octreotide drips. Patient is Jehovah witness On IV Iron and Vitamin K 10mg daily. GI is following ID: Place on empiric abx ( Rocephin 1 gram daily) monitor for isgns of infections ( Fever, WBC) Check CXR Heme: Monitor CBC, coags Endo: SSI for glycemic control On Synthroid 112 mcg daily GI prophylaxis- On Protonix drip DVT prophylaxis- Patient is not a candidate for AC prophylaxis due to GI bleed in addition she is coagulopathyic 2nd Liver disease with INR 2.0 on 06/13 Level 3 Elena Palomares MD Jun 14, 2016 11:11
[2016-06-14] MEDS ORDERED: SODIUM PHOSPHATE INJ 30 MMOL in SODIUM CHLOR 0.9% 250 ML INJ 240 ML IV PRN (11:15)
[2016-06-14] MEDS ORDERED: POTASSIUM PHOSPHATE MONOBASIC 500 MG TAB PO PRN (11:15)
[2016-06-14] MEDS ORDERED: MAGNESIUM SULFATE INJ 2 GM in SODIUM CHLORIDE 0.9% INJ 96 ML IV PRN (11:15)
[2016-06-14] MEDS ORDERED: POTASSIUM CHLOR 20 MEQ PREMIX 100 ML IV PRN ×2 (11:15)
[2016-06-14] MEDS ORDERED: POTASSIUM CHLOR 40 MEQ PREMIX 100 ML IV PRN ×2 (11:15)
[2016-06-14] MEDS ORDERED: POTASSIUM PHOSPHATE MONOBASIC 500 MG TAB PO/TUBE PRN (11:15)
[2016-06-14] MEDS ORDERED: POTASSIUM PHOSPHATE INJ 30 MMOL in SODIUM CHLOR 0.9% 250 ML INJ 250 ML IV PRN (11:15)
[2016-06-14] MEDS ORDERED: MAGNESIUM OXIDE 400 MG TAB PO PRN (11:15)
[2016-06-14] MEDS ORDERED: MAGNESIUM SULFATE INJ 4 GM in SODIUM CHLORIDE 0.9% INJ 92 ML IV PRN (11:15)
--- NOTE | 2016-06-14 11:38 | RADRPT ---
EXAM DATE/TIME: 06/14/2016 11:11 [facility] COMPARISON: CHEST SINGLE AP, January 30, 2015, 3:50. INDICATIONS : Shortness of breath. MEDICAL HISTORY : None. SURGICAL HISTORY : Heart catheterization. ENCOUNTER: Initial ACUITY: 1 day PAIN SCORE: 0/10 LOCATION: Bilateral chest FINDINGS: A single view of the chest demonstrates the lungs to be symmetrically aerated without evidence of mas s, infiltrate or effusion. The cardiomediastinal contours are unremarkable. Osseous structures are intact. CONCLUSION: 1. No acute cardiopulmonary findings. Cain Espinoza MD on June 14, 2016 at 11:36 Board Certified Radiologist. This report was verified electronically.
[2016-06-14 13:08] LABS: INTERNATIONAL NORMALIZED RATIO 1.9 RATIO; PROTHROMBIN TIME - PATIENT 21.3 SEC (9.8-11.6)
[2016-06-14] MEDS: cefTRIAXone INJ 1,000 MG in SODIUM CHLORIDE 0.9% INJ 100 ML IV SCH (14:25)
[2016-06-14] MEDS: THIAMINE HCL 100 MG TAB PO SCH (14:32)
--- NOTE | 2016-06-14 17:23 | HHI.GIFU ---
Subjective Remarks Sitting up in bed. No active bleeding. NO n/v. no abdominal pain. Tolerating diet. (Lilian Hays) Objective Vitals I&O Vital Signs Date Time Temp Pulse Resp B/P Pulse Ox O2 Delivery O2 Flow Rate FiO2 06/14/16 14:00 93 06/14/16 12:00 98 06/14/16 12:00 98.3 88 22 115/65 96 06/14/16 10:00 101 06/14/16 08:00 97.9 62 20 164/103 95 06/14/16 08:00 101 06/14/16 07:00 Room Air 2.00 06/14/16 06:00 94 06/14/16 04:00 99.0 85 23 121/69 95 06/14/16 04:00 85 06/14/16 02:00 98 06/14/16 00:00 95 06/14/16 00:00 99.2 95 23 103/53 94 06/13/16 23:00 86 20 110/56 94 06/13/16 22:00 93 06/13/16 22:00 93 20 111/63 96 06/13/16 21:00 94 20 116/66 97 06/13/16 20:00 96 06/13/16 20:00 Nasal Cannula 2.00 06/13/16 20:00 89 20 122/68 99 06/13/16 19:51 100 Nasal Cannula 2.00 06/13/16 19:00 99.3 97 20 110/82 99 06/13/16 18:00 89 I/O 06/13/16 06/13/16 06/13/16 06/14/16 06/14/16 06/14/16 07:00 15:00 23:00 07:00 15:00 23:00 Intake Total 1805 ml 1916 ml 1970 ml 1883 ml 1659 ml Output Total 452 ml 400 ml 400 ml 400 ml Balance 1353 ml 1516 ml 1570 ml 1483 ml 1659 ml Intake Oral 480 ml 200 ml 240 ml 650 ml IV Total 1325 ml 1716 ml 1730 ml 1233 ml 1659 ml Output Urine Total 450 ml 400 ml 400 ml 400 ml Stool Total 2 ml Emesis 0 ml # Voids 4 2 # Bowel Movements 0 Laboratory Laboratory Tests Test 06/14/16 06/14/16 05:46 12:50 White Blood Count 6.2 Red Blood Count 2.01 Hemoglobin 7.1 Hematocrit 20.5 Mean Corpuscular Volume 102.0 Mean Corpuscular Hemoglobin 35.4 Mean Corpuscular Hemoglobin 34.7 Concent Red Cell Distribution Width 15.7 Platelet Count 48 Mean Platelet Volume 9.7 Neutrophils (%) (Auto) 67.5 Lymphocytes (%) (Auto) 17.0 Monocytes (%) (Auto) 10.2 Eosinophils (%) (Auto) 5.0 Basophils (%) (Auto) 0.3 Neutrophils # (Auto) 4.2 Lymphocytes # (Auto) 1.1 Monocytes # (Auto) 0.6 Eosinophils # (Auto) 0.3 Basophils # (Auto) 0.0 CBC Comment AUTO DIFF Differential Comment AUTO DIFF CONFIRMED Platelet Estimate LOW Platelet Morphology Comment NORMAL Sodium Level 143 Potassium Level 3.5 Chloride Level 110 Carbon Dioxide Level 24.2 Anion Gap 9 Blood Urea Nitrogen 11 Creatinine 1.09 Estimat Glomerular Filtration 54 Rate Random Glucose 151 Calcium Level 6.6 Protein Corrected Calcium 7.4 Total Bilirubin 5.4 Aspartate Amino Transf 167 (AST/SGOT) Alanine Aminotransferase 84 (ALT/SGPT) Alkaline Phosphatase 65 Total Protein 5.4 Albumin 2.7 Prothrombin Time 21.3 Prothromb Time International 1.9 Ratio Phosphorus Level 1.3 Magnesium Level 2.0 Ammonia 85 Imaging Last Impressions Chest X-Ray 06/14/16 0000 Signed Impressions: Service Date/Time: Tuesday, June 14, 2016 11:11 - CONCLUSION: 1. No acute cardiopulmonary findings. Cain Espinoza MD GI Bleed Scan Nuclear Medicine 06/13/16 0000 Signed Impressions: Service Date/Time: June 15:20 - CONCLUSION: No active bleeding identified. Mayco Koo MD Physical Exam HEENT: Normocephalic; atraumatic; no jaundice. CHEST: CTA CARDIAC: RRR ABDOMEN: Soft, nondistended, nontender; no hepatosplenomegaly; bowel sounds are present in all four quadrants. EXTREMITIES: No clubbing, cyanosis, or edema. SKIN: Normal; no rash; no jaundice. KID CLUB ATTENDANT: No focal deficits; alert and oriented times three. (Lilian Hays) Assessment and Plan Plan ASSESSMENT: - Upper GI bleed with hx of liver cirrhosis/portal htn/ongoing ETOH use. Mother reports hx of "liver issues." 2015 US consistent with cirrhosis and portal htn. Pt continues to drink 2 ETOH drinks per day. Came to ER with vomiting dark red blood- 1 cup q2h yest. Takes Ibuprofen ii po BID. S/P EGD (06/12/16)-----> LA Class A esophagitis noted, gastritis in the gastric antrum, portal hypertensive gastropathy was found in susan gastric fundus, retroflexed views revealed no abnormalities. Pt has not had any further obvious GI bleeding, but her H/H went from 10.0/29.9 on 06/11 to 6.8/19.7 on 06/13, but has remained at 7.1/20.5 today. She is a Jehovah witness and does not want any blood products- including plasma/PRBC/Cryo. She is on Iron Sucrose, S/P Epogen, Vitamin B12. Bleeding scan (06/13/16)----> no active bleeding identified. - Anemia, acute blood loss. 7.1/20.5. She is a Jehovah witness and does not want any blood products-including plasma/PRBC/Cryo. She is on Iron Sucrose, S/P Epogen, Vitamin B12, MVI. PT Jehovah Witness - Elevated LFTs. T. Bili 5.4, AST 167, ALT 84, Alk Phosph 65. - Hepatic encephalopathy. Lactulose, clinically much improved. - Coagulopathy. INR 1.9. Does not want blood products. Vitamin K - Liver cirrhosis, portal htn. She appears to have had this at least as far back as 2014. She continues to drink- D/W patient complete etoh cessation and she verbalizes understanding and is receptive to this. - Hypothyroidism. Per primary. - PT IS A JEHOVAH WITNESS. NO BLOOD PRODUCTS. PLAN: - KELLY - S/P Epogen - Cont. Iron Sucrose - D/C Octreotide - Protonix 40mg po BID - Cont. Lactulose - Give Vitamin K 10mg today (3rd dose) - Monitor labs CBC, CMP, PT/INR - No Blood Products - Supportive care - D/W patient importance of no NSAIDS, complete ETOH cessation - Further recommendations to follow based on results of above - Pt seen and examined by Dr. Melgoza and myself and this note is written on his behalf (Lilian Hays) Physician Comments Seen and examined with WALL ATTENDANT, no active bleeding reported. No etoh recommended. Fu with gi upon dc in 02 weeks. Dc octreotide.Will sign off, Thank you (Kita Melgoza MD) Lilian Hays Jun 14, 2016 17:23 Kita Melgoza MD Jun 14, 2016 19:31
[2016-06-14] MEDS: PANTOPRAZOLE SOD 40 MG DELAYED RELEASE TAB PO SCH (21:00)
[2016-06-14] MEDS: LORazepam 2 MG/ML VIAL IV PRN (21:43)
--- NOTE | 2016-06-14 22:26 | RADRPT ---
EXAM DATE/TIME: 06/14/2016 15:31 [facility] COMPARISON: US ABDOMEN - LIVER, January 31, 2015, 11:29. INDICATIONS : Increased lab values. MEDICAL HISTORY : Hypothyroidism. Hypertension. Hematmesis. SURGICAL HISTORY : Total knee replacement, left. ACL surgery. Lasik. ENCOUNTER: Subsequent ACUITY: 1 day PAIN SCORE: 0/10 LOCATION: Right upper quadrant MEASUREMENTS: LIVER: 15.7 cm length COMMON DUCT: 5 mm RIGHT KIDNEY: 10.8 x 5.1 x 4.3 cm SPLEEN: 18.3 cm length FINDINGS: LIVER: The liver appears echogenic and heterogeneous. There is mild ascites seen around the liver. COMMON DUCT: No intraluminal mass or stone visualized. GALLBLADDER: Sludge is seen in the gallbladder. No gallbladder stones are seen. PANCREAS: The pancreas is obscured by bowel gas. RIGHT KIDNEY: No hydronephrosis, stone or mass. SPLEEN: The spleen is diffusely enlarged. CONCLUSION: Heterogeneous liver with ascites and splenomegaly suggestive of underlying cirrhosis and portal hyper tension. Marv Carlson MD on June 14, 2016 at 22:22 Board Certified Radiologist. This report was verified electronically.
[2016-06-15] VITALS (14 sets, daily range): BP systolic 88–126; BP diastolic 53–69; PULSE 81–105; RESP 18–32; TEMP 98.4–99.2; O2SAT 93–97
[2016-06-15] MEDS: CHLORHEXIDINE GLUCONATE 2 % 1 PACK (2 CLOTHS) TOP SCH (04:00)
[2016-06-15 04:49] LABS: AUTOMATED NEUTROPHIL # 4.4 TH/MM3 (1.8-7.7); BASOPHIL # 0.1 TH/MM3 (0-0.2); BASOPHIL % 1.1 % (0.0-2.0); EOSINOPHIL # 0.3 TH/MM3 (0-0.4); EOSINOPHIL % 5.1 % (0.0-4.0); LYMPH % 16.9 % (9.0-44.0); LYMPHOCYTE # 1.1 TH/MM3 (1.0-4.8); MEAN CELL VOLUME 103.1 FL (80.0-100.0); MEAN CORPUSCULAR HGB CONC 32.9 % (32.0-36.0); MONO % 11.5 % (0.0-8.0); NEUT % 65.4 % (16.0-70.0); PLATELET COUNT 48 TH/MM3 (150-450); RED BLOOD COUNT 1.93 MIL/MM3 (4.00-5.30); RED CELL DISTRIBUTION WIDTH 15.2 % (11.6-17.2); WHITE BLOOD COUNT 6.8 TH/MM3 (4.0-11.0)
[2016-06-15 04:59] LABS: HEMO FLAGS AUTO DIFF
[2016-06-15 05:02] LABS: HEMATOCRIT 19.9 % (35.0-46.0)
[2016-06-15 05:12] LABS: INTERNATIONAL NORMALIZED RATIO 1.9 RATIO; PROTHROMBIN TIME - PATIENT 22.1 SEC (9.8-11.6)
[2016-06-15 05:19] LABS: CALCIUM-PROTEIN CORRECTED 7.5 MG/DL (8.5-10.1); MAGNESIUM 1.7 MG/DL (1.5-2.5); POTASSIUM 3.8 MEQ/L (3.5-5.1); TOTAL BILIRUBIN ADULT 5.4 MG/DL (0.2-1.0)
[2016-06-15] MEDS: LEVOTHYROXINE SODIUM 112 MCG TAB PO SCH (05:29)
[2016-06-15 07:45] LABS: OVALOCYTES 1+ (NORMAL); PLATELET ESTIMATE SMEAR LOW (NORMAL); PLATELET MORPHOLOGY NORMAL (NORMAL); SCAN/DIFF AUTO DIFF CONFIRMED
[2016-06-15] MEDS: LACTULOSE SYRUP 20 GM/30 ML CUP PO SCH ×2 (08:26→20:18)
[2016-06-15] MEDS: THIAMINE HCL 100 MG TAB PO SCH (08:27)
[2016-06-15] MEDS: MULTIVITAMIN TAB PO SCH (08:27)
[2016-06-15] MEDS: SODIUM CHLORIDE 0.9% FLUSH 10 ML FLUSH IV FLUSH SCH ×2 (08:27→20:18)
[2016-06-15] MEDS: FOLIC ACID 1 MG TAB PO SCH (08:27)
[2016-06-15] MEDS: IRON SUCROSE INJ 200 MG in SODIUM CHLORIDE 0.9% INJ 100 ML IV SCH (08:27)
[2016-06-15] MEDS: PANTOPRAZOLE SOD 40 MG DELAYED RELEASE TAB PO SCH ×2 (08:27→20:18)
[2016-06-15] MEDS: PHYTONADIONE 10 MG/ML VIAL SQ SCH (08:27)
[2016-06-15] MEDS: cefTRIAXone INJ 1,000 MG in SODIUM CHLORIDE 0.9% INJ 100 ML IV SCH (11:48)
--- NOTE | 2016-06-15 17:04 | HHI.CCPN ---
Subjective Remarks/Hospital Course 06/12: 45-year-old female , Sikhism presented to [place] emergency department due to she been vomiting blood every 2 hours. She has never done this before. She has never had endoscopy done. She refuses blood products due to early degenerative. She's been feeling tired and dizzy. She usually drinks one to 2 alcohol beverages per day. She did have an ultrasound in 2014 which showed abnormal echo texture to the liver and enlarged spleen suggestive of cirrhosis and possible portal hypertension. She has had a melanotic stool today and was also taking 2 ibuprofen twice daily for a history of Raynaud's. 06/13: Abdomen has dropped to 6.8 today. Patient is not tachycardic or hypotensive and appears in no acute distress. Has passed some black tarry stools however no fresh bleeding noted per security shift manager RN. Remains on IV fluids. Started Epogen/iron sucrose IV and parenteral B-12/folate. Minimize blood draws as patient is a Sikhism 06/14 Patient is awake and alert lying in be din NAD. On Protonix and Sandostatin drips. Hgb 7.1 this morning. Bleeding scan yesterday showed no active bleeding identified. 06/15 Protonix and octreotide infusions discontinued last evening .No active signs of bleeding. Advance to heart healthy diet, no nausea vomiting noted .Extensive discussion with patient and family.Patient is Jehovah witness and requesting Hematology be consulted regarding methodology to preserve hemoglobin levels. Currently hemoglobin 6.5, heart rate normal sinus rhythm low 90s, normotensive. The patient continues on vitamin K, Epogen and Iron. Objective Vital Signs Date Time Temp Pulse Resp B/P Pulse Ox O2 Delivery O2 Flow Rate FiO2 06/15/16 12:00 104 06/15/16 08:00 98.9 18 109/53 95 06/15/16 07:20 21 06/14/16 22:00 Nasal Cannula 2.00 Intake and Output 06/14/16 06/14/16 06/15/16 08:00 16:00 00:00 Intake Total 1883 ml 1659 ml 1259 ml Output Total 400 ml 300 ml Balance 1483 ml 1659 ml 959 ml Result Diagram: 06/15/16 0354 06/15/16 0354 Imaging Last Impressions GI Bleed Scan Nuclear Medicine 06/13/16 0000 Signed Impressions: Service Date/Time: June 15:20 - CONCLUSION: No active bleeding identified. Mayco Koo MD Objective Remarks GENERAL: Well-nourished, well-developed patient. Sitting in recliner chair No acute distress SKIN: Warm and dry. HEAD: Normocephalic. EYES: No scleral icterus. No injection or drainage. NECK: Supple, trachea midline. No JVD or lymphadenopathy. CARDIOVASCULAR: Regular rate and rhythm without murmurs, gallops, or rubs. RESPIRATORY: Breath sounds equal bilaterally. No accessory muscle use. GASTROINTESTINAL: Abdomen soft, non-tender, nondistended. MUSCULOSKELETAL: No cyanosis, or edema. BACK: Nontender without obvious deformity. No CVA tenderness. EXTREMITIES: No clubbing cyanosis or edema Neuro: Awake and alert. GCS 15. 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 On Lactulose 30ml BID monitor Ammonia level. Pulm: Continue with oxygen keep sat >92% Bronchodilators PRN CV: Monitor HR and BP keep MAP>65mmHg : Monitor renal function, I/Os', electrolytes replacement as needed GI: On Protonix and Octreotide infusions discontinued 06/14. Patient is Jehovah witness On IV Iron and Vitamin K 10mg daily. GI is following ID: Place on empiric abx ( Rocephin 1 gram daily) monitor for isgns of infections ( Fever, WBC) Check CXR Heme: Monitor CBC, coags Hematology consulted- Latiff requested by family and Jehovah Witness Religious leader, regarding patient's hemoglobin preservation Follow-up CBC in a.m. Endo: SSI for glycemic control On Synthroid 112 mcg daily GI prophylaxis- Protonix BID DVT prophylaxis- Patient is not a candidate for AC prophylaxis due to GI bleed in addition she is coagulopathic due to Liver disease with INR 2.0 on 06/13 Level 3 Extensive discussion with family, baptism leaders and DIRECTOR OF STRATEGIC ALLIANCES at bedside. Family was specifically requesting hematology consult regarding hemoglobin preservation. I discussed with family and patient regarding physiology of liver failure, and coagulopathy. Patient states she has easy bruising and bleeding since childhood. Hematology consulted awaiting recommendations.Planned transfer to [facility] in . Physician Valery Reyes MD Jun 15, 2016 17:03
[2016-06-16] VITALS (12 sets, daily range): BP systolic 97–120; BP diastolic 53–60; PULSE 64–107; RESP 18–24; TEMP 98.6–99.5; O2SAT 93–97
[2016-06-16] MEDS: CHLORHEXIDINE GLUCONATE 2 % 1 PACK (2 CLOTHS) TOP SCH (04:00)
[2016-06-16] MEDS: LEVOTHYROXINE SODIUM 112 MCG TAB PO SCH (05:09)
[2016-06-16 05:52] LABS: MEAN CELL VOLUME 102.6 FL (80.0-100.0); MEAN CORPUSCULAR HEMOGLOBIN 35.5 PG (27.0-34.0); MEAN CORPUSCULAR HGB CONC 34.6 % (32.0-36.0); PLATELET COUNT 51 TH/MM3 (150-450); RED CELL DISTRIBUTION WIDTH 15.8 % (11.6-17.2); WHITE BLOOD COUNT 6.4 TH/MM3 (4.0-11.0)
[2016-06-16 06:12] LABS: REVIEW FLAG FINAL
[2016-06-16 06:14] LABS: HEMATOCRIT 19.5 % (35.0-46.0)
--- NOTE | 2016-06-16 06:31 | PD.TRANSFR ---
Transfer Summary Admission Date Jun 11, 2016 at 20:13 Transfer Date: Jun 16, 2016 Admitting Diagnosis GI BLEED Diagnoses: Objective Vital Signs Date Time Temp Pulse Resp B/P Pulse Ox O2 Delivery O2 Flow Rate FiO2 06/16/16 04:00 76 06/16/16 00:00 99.2 20 103/53 96 06/15/16 19:04 21 06/14/16 22:00 Nasal Cannula 2.00 Intake and Output 06/15/16 06/15/16 06/16/16 08:00 16:00 00:00 Intake Total 110 ml 837 ml 240 ml Output Total 0 ml Balance 110 ml 837 ml 240 ml Result Diagram: 06/16/16 0439 06/15/16 0354 Imaging Last Impressions GI Bleed Scan Nuclear Medicine 06/13/16 0000 Signed Impressions: Service Date/Time: June 15:20 - CONCLUSION: No active bleeding identified. Mayco Koo MD Objective Remarks GENERAL: Well-nourished, well-developed patient.In no acute distress. SKIN: Warm and dry. HEAD: Normocephalic. EYES: No scleral icterus. No injection or drainage. NECK: Supple, trachea midline. No JVD or lymphadenopathy. CARDIOVASCULAR: Regular rate and rhythm without murmurs, gallops, or rubs. RESPIRATORY: Breath sounds equal bilaterally. No accessory muscle use. GASTROINTESTINAL: Abdomen soft, non-tender, nondistended. MUSCULOSKELETAL: No cyanosis, or edema. BACK: Nontender without obvious deformity. No CVA tenderness. EXTREMITIES: No clubbing cyanosis or edema Neuro: Awake and alert. GCS 15. 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 On Lactulose 30ml BID monitor Ammonia level. Pulm: Continue with oxygen keep sat >92% Bronchodilators PRN CV: Monitor HR and BP keep MAP>65mmHg : Monitor renal function, I/Os', electrolytes replacement as needed GI: On Protonix and Octreotide infusions discontinued 06/14. Patient is Jehovah witness, requests NO BLOOD PRODUCT administration On IV Iron and Vitamin K 10mg daily. GI is following ID: Place on empiric abx ( Rocephin 1 gram daily) monitor for signs of infections ( Fever, WBC) 06/14 CXR- no acute abnormality Heme: Monitor CBC, coags Hematology consulted on 06/15- Latiff requested by family and Jehovah Witness Catholic leader, regarding patient's hemoglobin preservation Follow-up CBC slight improvement Hgb 6.7 from 6.5 Endo: SSI for glycemic control On Synthroid 112 mcg daily GI prophylaxis- Protonix DVT prophylaxis- Patient is not a candidate for AC prophylaxis due to GI bleed in addition she is coagulopathic due to Liver disease with INR 1.9 on 06/14. Pt up OOB w/ assistance ambulation Level 3 Extensive discussion with family, shinto leaders and PRIMARY SUBSTANCE ABUSE COUNSELOR at bedside. Family was specifically requesting hematology consult regarding hemoglobin preservation. I discussed with family and patient regarding physiology of liver failure, and coagulopathy. Patient states she has easy bruising and bleeding since childhood. Hematology consulted awaiting recommendations. Physician Valery Reyes MD Jun 16, 2016 06:31
[2016-06-16] MEDS: SODIUM CHLORIDE 0.9% FLUSH 10 ML FLUSH IV FLUSH SCH ×2 (09:00→21:00)
[2016-06-16] MEDS: LACTULOSE SYRUP 20 GM/30 ML CUP PO SCH ×2 (09:00→21:00)
[2016-06-16] MEDS: PANTOPRAZOLE SOD 40 MG DELAYED RELEASE TAB PO SCH ×2 (09:17→21:03)
[2016-06-16] MEDS: MULTIVITAMIN TAB PO SCH (09:17)
[2016-06-16] MEDS: IRON SUCROSE INJ 200 MG in SODIUM CHLORIDE 0.9% INJ 100 ML IV SCH (09:17)
[2016-06-16] MEDS: THIAMINE HCL 100 MG TAB PO SCH (09:18)
[2016-06-16] MEDS: FOLIC ACID 1 MG TAB PO SCH (09:18)
[2016-06-16] MEDS ORDERED: CYANOCOBALAMIN 1000 MCG/ML VIAL SQ ONE (10:15)
--- NOTE | 2016-06-16 12:07 | MB ---
cc: REANNA GARCIA LINDA W. MD DATE OF CONSULTATION: 06/16/2016 DATE OF : [address] Valery Keller[address] CHIEF COMPLA[address] Keller requested consultation for Mrs. Joe regarding coagulopathy and bleeding tendency in a patient who is a Hol[employer]. HISTORY OF PRESENT ILLNESS Mrs. Joe is a 45 year-old woman, patient of Dr. Arceo, [employer] [facility] [employer]. She presented to [place] [facility] due to hematemesis for 2 hours. She hurt her shoulder and was taking ibuprofen twice a day. She also has Raynaud's. She presented with melanotic stools and hematemesis. She is not certain about the etiology of her liver disease. She was made aware of her liver disease in 2014. Ultrasound January 31, 2015, shows heterogeneous echo texture of the liver with enlargement of the spleen suggestive of cirrhosis and portal hypertension. She denies hepatitis C or hepatitis in general, the serology from January 2015 was negative. She attributes it to sensitivity to medications. Prior to this bleeding event, she describes having bleeding tendency. She bruises easily. She is called a banana. She had heavy menses particularly after her third son was born 11 years ago. She has menses every month that lasts four days and are heavy, changing her pad every hour. She denies any lingering event of her menses. When it stops, it stops. She is prone to epistaxis. Interestingly her mother is very similar to her with the easy bruising, not as bad. She noted that her first son who is now 16 also bruises easily and has recurrent nose bleeds. During the hospitalization, she came in with a hemoglobin of 10, drifted down to 6.8. She has had CBC daily. Her hemoglobin remains less than 7 at 6.7, appears to be trending up. She is receiving folic acid and parenteral iron. She is tolerating it well. She has chronic thrombocytopenia with platelet count 51,000 at the time of the consultation. It was generally higher in the 70 to 80,000 range in 2015. She is aware of her risk and has declined blood transfusions repeatedly. Review of other labs shows elevation of liver function, AST, ALT even dating back to 2014, alkaline phosphatase is normal. Her bilirubin was elevated previously and has continued to be high at 5.4, half of which is indirect and half direct. She describes occasional liver pain. She had nausea and vomiting. She has not had any nausea or vomiting now. She feels stronger as she walked to the bathroom yesterday, however, she still feels weak. She denies anymore melena. The rest of her review of systems is negative. PAST MEDICAL HISTORY 1. Hypertension. 2. Easy bruising. 3. Raynaud's. 4. Anxiety. 5. Hypothyroidism. PAST SURGICAL HISTORY: LASIK surgery. Cardiac cath. FAMILY HISTORY: Significant for family history of bruising, mother and first son, now age 16. SOCIAL HISTORY She drinks two alcoholic beverage per day. She denies alcohol being a problem. She does not need an eye journeyman patternmaker. She denies any tobacco or illicit drug use. ALLERGIES TO BIAXIN, CODEINE, DARVOCET, MORPHINE CURRENT MEDICATIONS 6. Folic acid. 7. Multivitamin. 8. Protonix. 9. Ceftriaxone. 10. Thiamine. 11. Vitamin K 12. Iron sucrose daily x5 bags. 13. Lorazepam. PHYSICAL EXAMINATION VITAL SIGNS: Temperature 90.8, heart rate 76, respiratory rate 18, blood pressure 108/59, saturation 97%. Mrs. Joe is a well-developed, well-nourished woman. She is jaundiced, fair complexion. HEENT: Her pupils are round, reactive to light and accommodation. Oropharynx is clear. NECK: Supple. LUNGS: Clear to auscultation. CARDIOVASCULAR: Reveals normal rate and rhythm. ABDOMEN: Benign, hepatosplenomegaly. EXTREMITIES: Lower extremities with asymmetry, left leg, more prominent to the right. There is extensive bruising in the posterior aspect of the left leg. She has scar in the left knee from arthroscopic surgery. LABORATORY DATA: Significant for coagulopathy, both PT, PTT are prolonged. INR 1.9, despite vitamin K. Hemoglobin 6.7, platelet count 51,000. ASSESSMENT AND PLAN: Mrs. Joe is a 45 year-old woman with history of liver disease, identified in 2014. She does not know the chronicity or etiology of the liver disease. Her liver appears to be cirrhotic. We discussed referral to gastroenterology for evaluation. She may have particular sensitivity to alcohol and thus creating this problem for one to two drinks, otherwise she is drinking a lot more alcohol than what she is revealing on history. We discussed hereditary bleeding disorder, the most common of which is von Willebrand deficiency. We discussed that liver manufactures a lot of clotting protein. At this current state, it would be difficult to interpret the von Willebrand factor profile. It would be difficult to interpret how much is a contribution of the liver disease or her hereditary predisposition to any abnormality that is identified. She is interested in doing so because of her son. We discussed referring her son to a pediatric logistics research engineer in [place], Dr. Gonzalez. Since she is determined never to receive a blood transfusion, I recommend discontinuing the CBC. We will obtain a von Willebrand factor profile. PT/PTT will be checked. I would encourage continuing vitamin K. Gastroenterology is consulted. I defer to their advice as to the management of her underlying liver disease and referral to transplant if necessary. I concur with iron administration. B12 will be offered to enhance hematopoiesis. Folic acid and multivitamin is continued. Her questions were answered to her satisfaction. Reanna Garcia MD RAD/[facility] /10:05 AM /11:49 AM
--- NOTE | 2016-06-16 12:45 | RADRPT ---
EXAM DATE/TIME: 06/16/2016 11:37 [facility] COMPARISON: No previous studies available for comparison. INDICATIONS : Left leg swelling and bruising. MEDICAL HISTORY : Hypertension. Hypothyroidism. Migraine. SURGICAL HISTORY : Lasik eye surgery. ACL repair. Left knee replacement. ENCOUNTER: Initial ACUITY: 1 day PAIN SCORE: 0/10 LOCATION: Left leg. TECHNIQUE: Venous ultrasound of the leg was performed from the inguinal ligament to the proximal calf. Real-shane e, color Doppler and spectral tracing, compression and augmentation techniques were used. FINDINGS: There is normal compressibility of the deep venous system from the inguinal region to the proximal ca lf. No echogenic clot is seen in the lumen of the common femoral, femoral, popliteal, and posterior tibial veins. There is a normal response of the venous system to proximal and distal augmentation an d respiration. CONCLUSION: Normal examination. Carolyn Rao MD on June 16, 2016 at 12:43 Board Certified Radiologist. This report was verified electronically.
[2016-06-16] MEDS: PHYTONADIONE 5 MG TAB PO SCH (13:54)
[2016-06-16] MEDS: cefTRIAXone INJ 1,000 MG in SODIUM CHLORIDE 0.9% INJ 100 ML IV SCH (13:55)
[2016-06-17] VITALS (14 sets, daily range): BP systolic 108–125; BP diastolic 57–60; PULSE 85–102; RESP 22–28; TEMP 98.9–100.8; O2SAT 92–97
[2016-06-17] MEDS: LORazepam 1 MG TAB PO PRN (00:34)
[2016-06-17] MEDS: CHLORHEXIDINE GLUCONATE 2 % 1 PACK (2 CLOTHS) TOP SCH (04:00)
[2016-06-17 05:03] LABS: APTT (PATIENT) 48.8 SEC (24.3-30.1); INTERNATIONAL NORMALIZED RATIO 1.9 RATIO; PROTHROMBIN TIME - PATIENT 21.8 SEC (9.8-11.6)
[2016-06-17 05:17] LABS: BICARBONATE 24.3 MEQ/L (21.0-32.0); POTASSIUM 3.4 MEQ/L (3.5-5.1)
[2016-06-17 05:29] LABS: CALCIUM-PROTEIN CORRECTED 7.7 MG/DL (8.5-10.1)
[2016-06-17] MEDS: LEVOTHYROXINE SODIUM 112 MCG TAB PO SCH (06:13)
[2016-06-17] MEDS: THIAMINE HCL 100 MG TAB PO SCH (08:16)
[2016-06-17] MEDS: MULTIVITAMIN TAB PO SCH (08:16)
[2016-06-17] MEDS: LACTULOSE SYRUP 20 GM/30 ML CUP PO SCH ×2 (08:16→19:44)
[2016-06-17] MEDS: PANTOPRAZOLE SOD 40 MG DELAYED RELEASE TAB PO SCH ×2 (08:16→19:44)
[2016-06-17] MEDS: FOLIC ACID 1 MG TAB PO SCH (08:17)
[2016-06-17] MEDS: SODIUM CHLORIDE 0.9% FLUSH 10 ML FLUSH IV FLUSH SCH ×2 (08:17→19:44)
[2016-06-17] MEDS: PHYTONADIONE 5 MG TAB PO SCH (08:17)
[2016-06-17] MEDS: IRON SUCROSE INJ 200 MG in SODIUM CHLORIDE 0.9% INJ 100 ML IV SCH (08:18)
[2016-06-17] MEDS ORDERED: POTASSIUM CHLORIDE 20 MEQ CONTROLLED RELEASE TAB PO ONE (10:00)
--- NOTE | 2016-06-17 10:12 | HHI.PR ---
Subjective Remarks Follow-up GI bleed in a Jehova witness patient 06/17/16-patient seen and examined, denies any more hematemesis or GI bleed. She was seen by hematology and workup in process for ruling out von Willebrand Objective Vitals Vital Signs Date Time Temp Pulse Resp B/P Pulse Ox O2 Delivery O2 Flow Rate FiO2 06/17/16 07:00 94 Room Air 06/17/16 06:00 85 06/17/16 04:00 87 06/17/16 04:00 99.7 87 22 110/58 92 06/17/16 02:00 99 06/17/16 00:00 100.8 100 28 125/57 95 06/17/16 00:00 100 06/16/16 22:00 95 06/16/16 20:00 107 06/16/16 20:00 95 Room Air 06/16/16 20:00 99.5 100 24 120/58 96 06/16/16 18:00 72 06/16/16 16:00 98.9 105 19 117/60 95 06/16/16 16:00 75 06/16/16 14:00 79 06/16/16 12:00 99.0 90 20 114/57 94 06/16/16 12:00 74 I/O 06/16/16 06/16/16 06/16/16 06/17/16 06/17/16 06/17/16 07:00 15:00 23:00 07:00 15:00 23:00 Intake Total 240 ml 998 ml 240 ml Balance 240 ml 998 ml 240 ml Intake Oral 240 ml 720 ml 240 ml IV Total 0 ml 278 ml # Voids 2 1 1 # Bowel Movements 0 Result Diagram: 06/16/16 0439 06/17/16 0416 Imaging Last Impressions Lower Extremity Ultrasound 06/16/16 0000 Signed Impressions: Service Date/Time: Thursday, June 16, 2016 11:37 - CONCLUSION: Normal examination. Carolyn Rao MD Liver Ultrasound 06/14/16 0000 Signed Impressions: Service Date/Time: Tuesday, June 14, 2016 15:31 - CONCLUSION: Heterogeneous liver with ascites and splenomegaly suggestive of underlying cirrhosis and portal hypertension. Marv Carlson MD Chest X-Ray 06/14/16 0000 Signed Impressions: Service Date/Time: Tuesday, June 14, 2016 11:11 - CONCLUSION: 1. No acute cardiopulmonary findings. Cain Espinoza MD GI Bleed Scan Nuclear Medicine 06/13/16 0000 Signed Impressions: Service Date/Time: June 15:20 - CONCLUSION: No active bleeding identified. Mayco Koo MD Objective Remarks GENERAL: NAD SKIN: Warm and dry. HEAD: Normocephalic. EYES: No scleral icterus. No injection or drainage. NECK: Supple, trachea midline. No JVD or lymphadenopathy. CARDIOVASCULAR: Regular rate and rhythm without murmurs, gallops, or rubs. RESPIRATORY: Breath sounds equal bilaterally. No accessory muscle use. GASTROINTESTINAL: Abdomen soft, non-tender, nondistended. MUSCULOSKELETAL: No cyanosis, or edema. BACK: Nontender without obvious deformity. No CVA tenderness. A/P Problem List: (1) GI bleed ICD Code: K92.2 Status: Acute (2) Alcohol abuse ICD Code: F10.10 Status: Acute (3) Dyslipidemia ICD Code: E78.5 Status: Acute (4) Elevated LFTs ICD Code: R79.89 Status: Acute (5) Coagulopathy ICD Code: D68.9 Status: Acute (6) Hypothyroidism ICD Code: E03.9 Status: Acute Assessment and Plan 45-year-old female with 1) GI bleed On Protonix and s/p Octreotide infusions d 06/14. Patient is Jehovah witness, requests NO BLOOD PRODUCT administration Continue IV Iron and Vitamin K 10mg daily. GI following Will discontinue Rocephin 2)Severe Anemia Patient is Jehovah witness, requests NO BLOOD PRODUCT administration Continue IV Iron and Vitamin K 10mg daily. 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 8)Hypokalemia Replace electrolyte and monitor GI prophylaxis- Protonix DVT prophylaxis- Patient is not a candidate for AC prophylaxis due to GI bleed in addition she is coagulopathic due to Liver disease with INR 1.9 on 06/14. Transfer to Gilles Thomas MD Jun 17, 2016 10:12 in addition she is coagulopathic due to Liver disease with INR 1.9 on 06/14. Pt up OOB w/ assistance ambulation Gilles Waterman MD Jun 17, 2016 10:12
--- NOTE | 2016-06-17 16:46 | PD.ONC.PN ---
Subjective Subjective Remarks Tmax 100.8 overnight. Patient resting comfortably without complaint. Continues to have blood mixed with stool. Denies fatigue or weakness. Objective Data Date Time Temp Pulse Resp B/P Pulse Ox O2 Delivery O2 Flow Rate FiO2 06/17/16 14:00 98 06/17/16 12:00 98.9 93 22 123/58 96 06/17/16 12:00 93 06/17/16 11:17 95 06/17/16 10:00 97 06/17/16 08:00 99.2 89 24 108/60 93 06/17/16 08:00 89 06/17/16 07:00 94 Room Air 06/17/16 06:00 85 06/17/16 04:00 87 06/17/16 04:00 99.7 87 22 110/58 92 06/17/16 02:00 99 06/17/16 00:00 100.8 100 28 125/57 95 06/17/16 00:00 100 06/16/16 22:00 95 06/16/16 20:00 107 06/16/16 20:00 95 Room Air 06/16/16 20:00 99.5 100 24 120/58 96 06/16/16 18:00 72 06/17/16 06/17/16 06/17/16 07:00 15:00 23:00 Intake Total 240 ml 1625 ml Balance 240 ml 1625 ml Result Diagram: 06/16/16 0439 06/17/16 0416 Laboratory Results Laboratory Tests Test 06/17/16 04:16 Prothrombin Time 21.8 SEC Prothromb Time International 1.9 RATIO Ratio Activated Partial 48.8 SEC Thromboplast Time Fibrinogen 92 mg/dL Sodium Level 141 MEQ/L Potassium Level 3.4 MEQ/L Chloride Level 107 MEQ/L Carbon Dioxide Level 24.3 MEQ/L Anion Gap 10 MEQ/L Blood Urea Nitrogen 3 MG/DL Creatinine 0.92 MG/DL Estimat Glomerular Filtration 66 ML/MIN Rate Random Glucose 125 MG/DL Calcium Level 6.7 MG/DL Protein Corrected Calcium 7.7 MG/DL Total Protein 5.1 GM/DL Administered Medications Medications (Trade) Dose Ordered Sig/Miya Route PRN Reason Start Time Stop Time Status Last Admin Dose Admin Lorazepam (Ativan Inj) 2 mg Q4H PRN IV Agitation/Sedation 06/12/16 02:30 06/14/16 21:43 Miscellaneous Information 1 Q361D XX 06/12/16 02:30 06/12/16 02:30 Chlorhexidine Gluconate (Chlorhexidine 2% Cloth) Taper DAILY@04 TOP 06/12/16 04:00 06/08/17 03:59 06/15/16 04:00 Levothyroxine Sodium (Synthroid) 112 mcg DAILY@06 PO 06/12/16 06:00 06/17/16 06:13 Sodium Chloride (NS Flush) 2 ml BID IV FLUSH 06/12/16 09:00 06/17/16 08:17 Lorazepam (Ativan) 1 mg Q4H PRN PO CIWA 8 - 10 06/12/16 06:15 06/17/16 00:34 Lorazepam (Ativan Inj) 1 mg Q4H PRN IV PUSH CIWA 8 - 10 06/12/16 06:15 06/15/16 22:42 Lactulose (Lactulose Liq) 30 ml BID PO 06/12/16 09:00 06/17/16 08:16 Thiamine HCl (Vitamin B1) 100 mg DAILY PO 06/14/16 11:30 06/17/16 08:16 Folic Acid (Folate) 1 mg DAILY PO 06/15/16 09:00 06/17/16 08:17 Multivitamins 1 tab 1 tab DAILY PO 06/15/16 09:00 06/17/16 08:16 Potassium Chloride 100 ml @ 50 mls/hr Q2H PRN IV For Potassium 3.3 - 3.5 mEq/L 06/14/16 11:15 06/17/16 08:16 Sodium Phosphate/ Sodium Chloride (Sodium Phosphate Inj/NS 250 ml Inj) 250 ml @ 42 mls/hr UNSCH PRN IV For Phosphorus < 2.5 mg/dL 06/14/16 11:15 06/14/16 17:03 Pantoprazole Sodium (Protonix) 40 mg Q12HR PO 06/14/16 21:00 06/17/16 08:16 Phytonadione (Mephyton) 10 mg DAILY PO 06/16/16 10:15 06/19/16 10:14 06/17/16 08:17 Objective Remarks GENERAL: Middle aged female, sitting up in chair next to bed in [facility]. SKIN: Warm and dry. ecchymoses on arms and legs HEAD: Normocephalic. EYES: No injection or drainage. NECK: Supple, trachea midline. CARDIOVASCULAR: Regular rate and rhythm RESPIRATORY: Breath sounds equal bilaterally. No accessory muscle use. GASTROINTESTINAL: Abdomen soft, mildly distended EXTREMITIES: No cyanosis NEUROLOGICAL: No obvious focal deficit. Awake, alert, and oriented x3. Assessment/Plan Assessment 45y/o female admitted with GIB, liver disease, coagulopathy Plan 1. await vWF panel 2. avoid CBC as patient continues to refuse blood transfusions 3. continue B12 to enhance hematopoiesis Attending Statement The exam, history, and the medical decision-making described in the above note were completed with the assistance of the mid-level provider. I reviewed and agree with the findings presented. I attest that I had a [id number] encounter with the patient on the same day, and personally performed and documented my assessment and findings in the medical record. Pt seen and examined. Had nose bleed that stopped promptly. Bruising over leg evolving. Reviewed labs so far consistent with coagulopathy secondary to liver disease. Discussed with nursing, family reports amount of alcohol intake witnessed consumed y by patient, more than reported. vWF profile still pending, discussed with patient in AM. Tolerating iron, CBC stopped since she was never going to accept transfusion. Ruthann Calderon Jun 17, 2016 16:46 Moraima Glynn MD Jun 17, 2016 22:05
[2016-06-17] MEDS: LORazepam 2 MG/ML VIAL IV PRN (23:46)
[2016-06-18] VITALS (10 sets, daily range): BP systolic 96–184; BP diastolic 50–87; PULSE 90–110; RESP 16–22; TEMP 97.6–100; O2SAT 95–99
[2016-06-18] MEDS: CHLORHEXIDINE GLUCONATE 2 % 1 PACK (2 CLOTHS) TOP SCH (04:00)
[2016-06-18] MEDS: LEVOTHYROXINE SODIUM 112 MCG TAB PO SCH (05:57)
[2016-06-18] MEDS: THIAMINE HCL 100 MG TAB PO SCH (08:47)
[2016-06-18] MEDS: LACTULOSE SYRUP 20 GM/30 ML CUP PO SCH ×2 (08:47→20:27)
[2016-06-18] MEDS: FOLIC ACID 1 MG TAB PO SCH (08:47)
[2016-06-18] MEDS: PANTOPRAZOLE SOD 40 MG DELAYED RELEASE TAB PO SCH ×2 (08:47→20:27)
[2016-06-18] MEDS: MULTIVITAMIN TAB PO SCH (08:47)
[2016-06-18] MEDS: PHYTONADIONE 5 MG TAB PO SCH (08:47)
[2016-06-18] MEDS: SODIUM CHLORIDE 0.9% FLUSH 10 ML FLUSH IV FLUSH SCH ×2 (08:48→20:28)
[2016-06-18] MEDS: LORazepam 2 MG/ML VIAL IV PRN ×2 (13:07→23:12)
--- NOTE | 2016-06-18 13:46 | HHI.PR ---
Subjective Remarks Follow-up GI bleed in a Jehova witness patient 06/17/16-patient seen and examined, denies any more hematemesis or GI bleed. She was seen by hematology and workup in process for ruling out von Willebrand 06/18/16-patient seen and examined; complains of mild abdominal discomfort otherwise stable. No mention of any GI bleed Objective Vitals Vital Signs Date Time Temp Pulse Resp B/P Pulse Ox O2 Delivery O2 Flow Rate FiO2 06/18/16 12:03 100.0 110 20 126/72 95 06/18/16 09:05 109 140/73 06/18/16 08:00 97.6 99 18 184/87 99 06/18/16 06:00 97 06/18/16 04:00 98.8 94 21 96/50 98 06/18/16 04:00 90 06/18/16 02:00 92 06/18/16 00:00 99.0 101 22 113/57 97 06/18/16 00:00 101 06/17/16 22:00 99 06/17/16 20:00 99.1 102 23 122/59 97 06/17/16 20:00 102 06/17/16 19:02 95 21 06/17/16 19:00 97 Room Air 06/17/16 18:00 100 06/17/16 16:00 91 06/17/16 16:00 99.3 91 24 125/60 95 06/17/16 14:00 98 I/O 06/17/16 06/17/16 06/17/16 06/18/16 06/18/16 06/18/16 07:00 15:00 23:00 07:00 15:00 23:00 Intake Total 240 ml 1625 ml 250 ml 250 ml Balance 240 ml 1625 ml 250 ml 250 ml Intake Oral 240 ml 1440 ml 250 ml 250 ml IV Total 185 ml 0 ml 0 ml # Voids 1 4 4 2 # Bowel Movements 3 2 1 Result Diagram: 06/16/16 0439 06/17/16 0416 Objective Remarks GENERAL: NAD SKIN: Warm and dry. HEAD: Normocephalic. EYES: No scleral icterus. No injection or drainage. NECK: Supple, trachea midline. No JVD or lymphadenopathy. CARDIOVASCULAR: Regular rate and rhythm without murmurs, gallops, or rubs. RESPIRATORY: Breath sounds equal bilaterally. No accessory muscle use. GASTROINTESTINAL: Abdomen soft, non-tender, nondistended. MUSCULOSKELETAL: No cyanosis, or edema. BACK: Nontender without obvious deformity. No CVA tenderness. A/P Problem List: (1) GI bleed ICD Code: K92.2 Status: Acute (2) Alcohol abuse ICD Code: F10.10 Status: Acute (3) Dyslipidemia ICD Code: E78.5 Status: Acute (4) Elevated LFTs ICD Code: R79.89 Status: Acute (5) Coagulopathy ICD Code: D68.9 Status: Acute (6) Hypothyroidism ICD Code: E03.9 Status: Acute Assessment and Plan 45-year-old female with 1) GI bleed On Protonix and s/p Octreotide infusions d 06/14. Patient is Jehovah witness, requests NO BLOOD PRODUCT administration Continue IV Iron and Vitamin K 10mg daily. GI following s/p Rocephin 2)Severe Anemia Patient is Jehovah witness, requests NO BLOOD PRODUCT administration Continue IV Iron and Vitamin K 10mg daily. GI following 3)Coagulopathy 2nd ESLD von Willebrand factor profile still pending Discontinue CBC check Monitor INR/PT Appreciate input from hematology 4)Thrombocytopenia Treat as in above 5) DANILO..improving 6)Hypothyroidism On Synthroid 112 mcg daily 7)ETOH use Continue rally pack, CIWA protocol,Lactulose 30ml BID ;monitor Ammonia level. 8)Hypokalemia Replace electrolyte and monitor GI prophylaxis- Protonix DVT prophylaxis- Patient is not a candidate for AC prophylaxis due to GI bleed in addition she is coagulopathic due to Liver disease with INR 1.9 on 06/14. Gilles Waterman MD Jun 18, 2016 13:46
--- NOTE | 2016-06-18 14:18 | PD.ONC.PN ---
Subjective Subjective Remarks Afebrile overnight. Patient fatigued. She denies further bleeding. Objective Data Date Time Temp Pulse Resp B/P Pulse Ox O2 Delivery O2 Flow Rate FiO2 06/18/16 12:03 100.0 110 20 126/72 95 06/18/16 09:05 109 140/73 06/18/16 08:00 97.6 99 18 184/87 99 06/18/16 06:00 97 06/18/16 04:00 98.8 94 21 96/50 98 06/18/16 04:00 90 06/18/16 02:00 92 06/18/16 00:00 99.0 101 22 113/57 97 06/18/16 00:00 101 06/17/16 22:00 99 06/17/16 20:00 99.1 102 23 122/59 97 06/17/16 20:00 102 06/17/16 19:02 95 21 06/17/16 19:00 97 Room Air 06/17/16 18:00 100 06/17/16 16:00 91 06/17/16 16:00 99.3 91 24 125/60 95 06/18/16 06/18/16 06/18/16 07:00 15:00 23:00 Intake Total 250 ml Balance 250 ml Result Diagram: 06/16/16 0439 06/17/16 0416 Administered Medications Medications (Trade) Dose Ordered Sig/Miya Route PRN Reason Start Time Stop Time Status Last Admin Dose Admin Lorazepam (Ativan Inj) 2 mg Q4H PRN IV Agitation/Sedation 06/12/16 02:30 06/18/16 13:07 Miscellaneous Information 1 Q361D XX 06/12/16 02:30 06/12/16 02:30 Chlorhexidine Gluconate (Chlorhexidine 2% Cloth) Taper DAILY@04 TOP 06/12/16 04:00 06/08/17 03:59 06/15/16 04:00 Levothyroxine Sodium (Synthroid) 112 mcg DAILY@06 PO 06/12/16 06:00 06/18/16 05:57 Sodium Chloride (NS Flush) 2 ml BID IV FLUSH 06/12/16 09:00 06/18/16 08:48 Lorazepam (Ativan) 1 mg Q4H PRN PO CIWA 8 - 10 06/12/16 06:15 06/17/16 00:34 Lorazepam (Ativan Inj) 1 mg Q4H PRN IV PUSH CIWA 8 - 10 06/12/16 06:15 06/15/16 22:42 Lactulose (Lactulose Liq) 30 ml BID PO 06/12/16 09:00 06/17/16 08:16 Thiamine HCl (Vitamin B1) 100 mg DAILY PO 06/14/16 11:30 06/18/16 08:47 Folic Acid (Folate) 1 mg DAILY PO 06/15/16 09:00 06/18/16 08:47 Multivitamins (Theragran) 1 tab DAILY PO 06/15/16 09:00 06/18/16 08:47 Pantoprazole Sodium (Protonix) 40 mg Q12HR PO 06/14/16 21:00 06/18/16 08:47 Phytonadione (Mephyton) 10 mg DAILY PO 06/16/16 10:15 06/19/16 10:14 06/18/16 08:47 Objective Remarks GENERAL: Fatigued middle aged female, sitting up in chair in nad. SKIN: Warm and dry. HEAD: Normocephalic. EYES: No injection or drainage. NECK: Supple, trachea midline. CARDIOVASCULAR: Regular rate and rhythm RESPIRATORY: Breath sounds equal bilaterally. No accessory muscle use. GASTROINTESTINAL: Abdomen soft, mildly distended EXTREMITIES: No cyanosis NEUROLOGICAL: awake and alert, normal speech. moving all extremities. Assessment/Plan Assessment 45y/o female admitted with GIB, liver disease, coagulopathy Plan 1. await vWF panel 2. monitor clinically 3. supportive care Attending Statement Discussed as above with EDWIN Ferreira. Ruthann Calderon Jun 18, 2016 14:18 Moraima Glynn MD Jun 18, 2016 23:46
[2016-06-19] VITALS (8 sets, daily range): BP systolic 106–126; BP diastolic 60–71; PULSE 55–107; RESP 16–20; TEMP 97.2–99.7; O2SAT 94–98
[2016-06-19] MEDS: CHLORHEXIDINE GLUCONATE 2 % 1 PACK (2 CLOTHS) TOP SCH (04:00)
[2016-06-19] MEDS: LEVOTHYROXINE SODIUM 112 MCG TAB PO SCH (06:13)
[2016-06-19] MEDS: LACTULOSE SYRUP 20 GM/30 ML CUP PO SCH ×2 (09:00→20:59)
[2016-06-19] MEDS: PANTOPRAZOLE SOD 40 MG DELAYED RELEASE TAB PO SCH ×2 (09:27→21:00)
[2016-06-19] MEDS: PHYTONADIONE 5 MG TAB PO SCH (09:27)
[2016-06-19] MEDS: THIAMINE HCL 100 MG TAB PO SCH (09:27)
[2016-06-19] MEDS: MULTIVITAMIN TAB PO SCH (09:27)
[2016-06-19] MEDS: FOLIC ACID 1 MG TAB PO SCH (09:27)
[2016-06-19] MEDS: SODIUM CHLORIDE 0.9% FLUSH 10 ML FLUSH IV FLUSH SCH ×2 (09:28→21:00)
--- NOTE | 2016-06-19 09:59 | HHI.PR ---
Subjective Remarks Follow-up GI bleed in a Jehova witness patient 06/17/16-patient seen and examined, denies any more hematemesis or GI bleed. She was seen by hematology and workup in process for ruling out von Willebrand 06/18/16-patient seen and examined; complains of mild abdominal discomfort otherwise stable. No mention of any GI bleed 06/19/16-patient seen and examined, stable and no GI bleed. Objective Vitals Vital Signs Date Time Temp Pulse Resp B/P Pulse Ox O2 Delivery O2 Flow Rate FiO2 06/19/16 05:44 97.5 93 16 106/62 94 06/19/16 00:00 99.0 98 16 106/60 96 06/18/16 20:00 99.0 97 16 113/65 96 06/18/16 17:41 96 21 06/18/16 16:05 99.8 103 20 100/55 96 06/18/16 12:03 100.0 110 20 126/72 95 I/O 06/18/16 06/18/16 06/18/16 06/19/16 06/19/16 06/19/16 07:00 15:00 23:00 07:00 15:00 23:00 Intake Total 250 ml 480 ml 400 ml 300 ml Balance 250 ml 480 ml 400 ml 300 ml Intake Oral 250 ml 480 ml 400 ml 300 ml IV Total 0 ml # Voids 2 3 2 2 # Bowel Movements 1 1 0 Result Diagram: 06/16/16 0439 06/17/16 0416 Objective Remarks GENERAL: NAD SKIN: Warm and dry. HEAD: Normocephalic. EYES: No scleral icterus. No injection or drainage. NECK: Supple, trachea midline. No JVD or lymphadenopathy. CARDIOVASCULAR: Regular rate and rhythm without murmurs, gallops, or rubs. RESPIRATORY: Breath sounds equal bilaterally. No accessory muscle use. GASTROINTESTINAL: Abdomen soft, non-tender, nondistended. MUSCULOSKELETAL: No cyanosis, or edema. BACK: Nontender without obvious deformity. No CVA tenderness. A/P Problem List: (1) GI bleed ICD Code: K92.2 Status: Acute (2) Alcohol abuse ICD Code: F10.10 Status: Acute (3) Dyslipidemia ICD Code: E78.5 Status: Acute (4) Elevated LFTs ICD Code: R79.89 Status: Acute (5) Coagulopathy ICD Code: D68.9 Status: Acute (6) Hypothyroidism ICD Code: E03.9 Status: Acute Assessment and Plan 45-year-old female with 1) GI bleed-stable On Protonix and s/p Octreotide infusions d 06/14. Patient is Jehovah witness, requests NO BLOOD PRODUCT administration Status post IV Iron and continue Vitamin K 10mg daily. GI following 2)Severe Anemia Patient is Jehovah witness, requests NO BLOOD PRODUCT administration Status post IV Iron and continue Vitamin K 10mg daily until 06/19/16. GI following 3)Coagulopathy 2nd ESLD von Willebrand factor profile still pending Discontinue CBC check Monitor INR/PT Appreciate input from hematology 4)Thrombocytopenia Treat as in above 5) DANILO..improving 6)Hypothyroidism On Synthroid 112 mcg daily 7)ETOH use Continue rally pack, CIWA protocol,Lactulose 30ml BID ;monitor Ammonia level-23 on 06/19/16. 8)Hypokalemia-resolved GI prophylaxis- Protonix DVT prophylaxis- Patient is not a candidate for AC prophylaxis due to GI bleed in addition she is coagulopathic due to Liver disease with INR 1.9 on 06/14. Gilles Waterman MD Jun 19, 2016 09:59
[2016-06-19 13:53] LABS: VWF AG GREATER THAN 300 % (50-217)
--- NOTE | 2016-06-19 17:01 | PD.ONC.PN ---
Subjective Subjective Remarks Afebrile overnight. Pt resting in bed with visitors present. She states she has been having abdominal pain to her LLQ for the past 2 days. Objective Data Date Time Temp Pulse Resp B/P Pulse Ox O2 Delivery O2 Flow Rate FiO2 06/19/16 10:19 97 21 06/19/16 05:44 97.5 93 16 106/62 94 06/19/16 00:00 99.0 98 16 106/60 96 06/18/16 20:00 99.0 97 16 113/65 96 06/18/16 17:41 96 21 06/19/16 06/19/16 06/19/16 07:00 15:00 23:00 Intake Total 300 ml Balance 300 ml Result Diagram: 06/16/16 0439 06/17/16 0416 Laboratory Results Laboratory Tests Test 06/19/16 07:22 Ammonia 23 MCMOL/L Administered Medications Medications (Trade) Dose Ordered Sig/Miya Route PRN Reason Start Time Stop Time Status Last Admin Dose Admin Lorazepam (Ativan Inj) 2 mg Q4H PRN IV Agitation/Sedation 06/12/16 02:30 06/18/16 23:12 Miscellaneous Information 1 Q361D XX 06/12/16 02:30 06/12/16 02:30 Chlorhexidine Gluconate (Chlorhexidine 2% Cloth) Taper DAILY@04 TOP 06/12/16 04:00 06/08/17 03:59 06/19/16 04:00 Levothyroxine Sodium (Synthroid) 112 mcg DAILY@06 PO 06/12/16 06:00 06/19/16 06:13 Sodium Chloride (NS Flush) 2 ml BID IV FLUSH 06/12/16 09:00 06/19/16 09:28 Lorazepam (Ativan) 1 mg Q4H PRN PO CIWA 8 - 10 06/12/16 06:15 06/17/16 00:34 Lorazepam (Ativan Inj) 1 mg Q4H PRN IV PUSH CIWA 8 - 10 06/12/16 06:15 06/15/16 22:42 Lactulose (Lactulose Liq) 30 ml BID PO 06/12/16 09:00 06/18/16 20:27 Thiamine HCl (Vitamin B1) 100 mg DAILY PO 06/14/16 11:30 06/19/16 09:27 Folic Acid (Folate) 1 mg DAILY PO 06/15/16 09:00 06/19/16 09:27 Multivitamins (Theragran) 1 tab DAILY PO 06/15/16 09:00 06/19/16 09:27 Pantoprazole Sodium (Protonix) 40 mg Q12HR PO 06/14/16 21:00 06/19/16 09:27 Objective Remarks GENERAL: Fatigued middle aged female sitting up in bed with visitors present. SKIN: Warm and dry. +Jaundice. HEAD: Normocephalic. EYES: No injection or drainage. +Icterus. NECK: Supple, trachea midline. CARDIOVASCULAR: +S1/S2. 4/6 murmur noted. RESPIRATORY: Breath sounds equal bilaterally. No accessory muscle use. GASTROINTESTINAL: Abdomen soft, mildly distended EXTREMITIES: No cyanosis NEUROLOGICAL: Awake and alert, normal speech. moving all extremities. Assessment/Plan Assessment 45y/o female admitted with GIB, liver disease, coagulopathy Plan 1. Facesheet faxed to [facility]. 2. Pt with LLQ abdominal pain x 2 days; will get CT scan. 3. Continue supportive care, await VW factor results. Attending Statement The exam, history, and the medical decision-making described in the above note were completed with the assistance of the mid-level provider. I reviewed and agree with the findings presented. I attest that I had a [id number] encounter with the patient on the same day, and personally performed and documented my assessment and findings in the medical record. Pt seen and examined. Denies any more bleeding. Feeling better, color is good, still has abdominal pain. Ct results pending. Feels that she can go home but wanted a blood number to see her response so far. Request CBC check before going home, understanding she will not be taking transfusions. Discussed VWF profile, unlikely that she has vWD, factor levels>300% appropriate response to bleeding event. Coagulopathy is due to liver disease. Recommend follow up as out pt. Danielle Kennedy Jun 19, 2016 17:01 Moraima Glynn MD Jun 19, 2016 20:22
[2016-06-19] MEDS ORDERED: DIATRIZOATE MEGLUM/DIATRIZOATE SOD 9 ML CUP PO ONE (17:05)
[2016-06-19 17:53] LABS: COAG FACTOR VIII 161 (50-180)
--- NOTE | 2016-06-19 20:15 | RADRPT ---
EXAM DATE/TIME: 06/19/2016 19:49 [facility] COMPARISON: US ABDOMEN - LIVER, June 14, 2016, 15:31. INDICATIONS : LLQ abdominal pain radiating to RLQ abdomen for 2 days; jaundice. ORAL CONTRAST: Prescribed oral contrast ingested. RADIATION DOSE: 14.42 CTDIvol (mGy) MEDICAL HISTORY : Cardiovascular disease. Hypertension. SURGICAL HISTORY : None. ENCOUNTER: Initial ACUITY: 2 days PAIN SCALE: 4/10 LOCATION: Left lower quadrant Abdomen/pelvis TECHNIQUE: Volumetric scanning of the abdomen and pelvis was performed. Using automated exposure control and ad justment of the mA and/or kV according to patient size, radiation dose was kept as low as reasonably achievable to obtain optimal diagnostic quality images. FINDINGS: Moderate to large diffuse ascites noted. There is also body wall edema/anasarca. Liver mildly enlarge d, 18.4 cm craniocaudal. Spleen is moderately enlarged, measures almost 16 cm craniocaudal. No focal hepatic or splenic lesion demonstrated. Numerous small stones seen in the gallbladder. I don't see a ductal stone or ductal dilatation. Noncontrast appearance of the pancreas, adrenal glands and kidneys within normal limits. There is wall thickening of the duodenum and multiple loops of proximal jejunum. No obstruction. Small pleural effusion seen of both visualized lung bases with mild atelectasis. CONCLUSION: 1. Hepatosplenomegaly and moderate ascites. 2. Duodenal and proximal jejunal wall thickening. Infectious or inflammatory enteritis would be in th e differential but wall thickening related to hepatic disease would also be conceivable. No obstructi on. 3. Body wall edema/anasarca. 4. Small bilateral pleural effusions and mild atelectasis of the lung bases. Marv Zelaya MD on June 19, 2016 at 20:09 Board Certified Radiologist. This report was verified electronically.
[2016-06-19] MEDS: LORazepam 1 MG TAB PO PRN (22:36)
[2016-06-20] VITALS: BP 121/57; PULSE 53; RESP 18; TEMP 97; O2SAT 99
[2016-06-20] MEDS: LORazepam 1 MG TAB PO PRN (01:51)
[2016-06-20 04:00] VITALS: BP 110/68; PULSE 99; RESP 18; TEMP 97.6; O2SAT 94
[2016-06-20] MEDS: CHLORHEXIDINE GLUCONATE 2 % 1 PACK (2 CLOTHS) TOP SCH (04:00)
[2016-06-20] MEDS: LEVOTHYROXINE SODIUM 112 MCG TAB PO SCH (06:02)
[2016-06-20 07:09] LABS: MEAN CELL VOLUME 103.4 FL (80.0-100.0); MEAN CORPUSCULAR HEMOGLOBIN 33.2 PG (27.0-34.0); MEAN CORPUSCULAR HGB CONC 32.1 % (32.0-36.0); PLATELET COUNT 70 TH/MM3 (150-450); RED BLOOD COUNT 2.23 MIL/MM3 (4.00-5.30); RED CELL DISTRIBUTION WIDTH 17.5 % (11.6-17.2); WHITE BLOOD COUNT 6.6 TH/MM3 (4.0-11.0)
[2016-06-20 07:23] LABS: REVIEW FLAG FINAL
[2016-06-20 08:00] VITALS: BP 118/61; PULSE 100; RESP 16; TEMP 97.7; O2SAT 94
[2016-06-20] MEDS: LACTULOSE SYRUP 20 GM/30 ML CUP PO SCH ×2 (09:00→09:32)
[2016-06-20] MEDS: PANTOPRAZOLE SOD 40 MG DELAYED RELEASE TAB PO SCH (09:32)
[2016-06-20] MEDS: THIAMINE HCL 100 MG TAB PO SCH (09:32)
[2016-06-20] MEDS: MULTIVITAMIN TAB PO SCH (09:32)
[2016-06-20] MEDS: FOLIC ACID 1 MG TAB PO SCH (09:32)
[2016-06-20] MEDS: SODIUM CHLORIDE 0.9% FLUSH 10 ML FLUSH IV FLUSH SCH (09:32)
[2016-06-20 12:00] VITALS: BP 112/75; PULSE 95; RESP 16; TEMP 98.6; O2SAT 94
--- NOTE | 2016-06-20 13:24 | HHI.PR ---
Subjective Remarks Follow-up GI bleed in a Jehovah witness patient 06/17/16-patient seen and examined, denies any more hematemesis or GI bleed. She was seen by hematology and workup in process for ruling out von Willebrand 06/18/16-patient seen and examined; complains of mild abdominal discomfort otherwise stable. No mention of any GI bleed 06/19/16-patient seen and examined, stable and no GI bleed. 06/20/16-patient seen and examined, mother involving the bedroom. She has no chest pain or GI bleed, only complains of abdominal tightness and some bilateral lower extremity edema. Objective Vitals Vital Signs Date Time Temp Pulse Resp B/P Pulse Ox O2 Delivery O2 Flow Rate FiO2 06/20/16 08:00 97.7 100 16 118/61 94 06/20/16 04:00 97.6 99 18 110/68 94 06/20/16 00:00 97.0 53 18 121/57 99 06/19/16 20:14 98 21 06/19/16 20:00 97.2 107 18 118/70 94 06/19/16 16:00 99.7 100 18 118/71 95 I/O 06/19/16 06/19/16 06/19/16 06/20/16 06/20/16 06/20/16 07:00 15:00 23:00 07:00 15:00 23:00 Intake Total 300 ml 1320 ml Balance 300 ml 1320 ml Intake Oral 300 ml 1320 ml # Voids 2 8 1 # Bowel Movements 0 5 Result Diagram: 06/20/16 0550 06/17/16 0416 Imaging Last Impressions Abdomen/Pelvis CT 06/19/16 0000 Signed Impressions: Service Date/Time: Sunday, June 19, 2016 19:49 - CONCLUSION: 1. Hepatosplenomegaly and moderate ascites. 2. Duodenal and proximal jejunal wall thickening. Infectious or inflammatory enteritis would be in the differential but wall thickening related to hepatic disease would also be conceivable. No obstruction. 3. Body wall edema/anasarca. 4. Small bilateral pleural effusions and mild atelectasis of the lung bases. Marv Zelaya MD Lower Extremity Ultrasound 06/16/16 0000 Signed Impressions: Service Date/Time: Thursday, June 16, 2016 11:37 - CONCLUSION: Normal examination. Carolyn Rao MD Liver Ultrasound 06/14/16 0000 Signed Impressions: Service Date/Time: Tuesday, June 14, 2016 15:31 - CONCLUSION: Heterogeneous liver with ascites and splenomegaly suggestive of underlying cirrhosis and portal hypertension. Marv Carlson MD Chest X-Ray 06/14/16 0000 Signed Impressions: Service Date/Time: Tuesday, June 14, 2016 11:11 - CONCLUSION: 1. No acute cardiopulmonary findings. Cain Espinoza MD GI Bleed Scan Nuclear Medicine 06/13/16 0000 Signed Impressions: Service Date/Time: June 15:20 - CONCLUSION: No active bleeding identified. Mayco Koo MD Objective Remarks GENERAL: NAD SKIN: Warm and dry. HEAD: Normocephalic. EYES: No scleral icterus. No injection or drainage. NECK: Supple, trachea midline. No JVD or lymphadenopathy. CARDIOVASCULAR: Regular rate and rhythm without murmurs, gallops, or rubs. RESPIRATORY: Breath sounds equal bilaterally. No accessory muscle use. GASTROINTESTINAL: Abdomen soft, non-tender, nondistended. MUSCULOSKELETAL: No cyanosis; +1 edema BLE. BACK: Nontender without obvious deformity. No CVA tenderness. Procedures none A/P Problem List: (1) GI bleed ICD Code: K92.2 Status: Acute (2) Alcohol abuse ICD Code: F10.10 Status: Acute (3) Dyslipidemia ICD Code: E78.5 Status: Acute (4) Elevated LFTs ICD Code: R79.89 Status: Acute (5) Coagulopathy ICD Code: D68.9 Status: Acute (6) Hypothyroidism ICD Code: E03.9 Status: Acute (7) Anasarca ICD Code: R60.1 Status: Acute Assessment and Plan 45-year-old female with 1) GI bleed-stable On Protonix and s/p Octreotide infusions d 06/14. Patient is Jehovah witness, requests NO BLOOD PRODUCT administration Status post IV Iron and Vitamin K 10mg daily. GI following 2)Severe Anemia Patient is Jehovah witness, requests NO BLOOD PRODUCT administration Status post IV Iron and Vitamin K 10mg daily . GI following 3)Coagulopathy 2nd ESLD von Willebrand factor levels>300% appropriate response to bleeding event Discontinue CBC check Monitor INR/PT Appreciate input from hematology 4)Thrombocytopenia Treat as in above 5) DANILO..improving 6)Hypothyroidism On Synthroid 112 mcg daily 7)ETOH use Continue radha seo, MARIO protocol,Lactulose 30ml BID ;monitor Ammonia level-23 on 06/19/16. 8)Hypokalemia-resolved 9)Anasarca-CT abdomen noted; will start short course of Lasix 20mg daily GI prophylaxis- Protonix DVT prophylaxis- Patient is not a candidate for AC prophylaxis due to GI bleed in addition she is coagulopathic due to Liver disease with INR 1.9 on 06/14. Discharge Planning d/c at home Gilles Waterman MD Jun 20, 2016 13:24
[2016-06-20] MEDS ORDERED: PANT40TA3 PO (13:30)
[2016-06-20] MEDS ORDERED: FERR325T PO (13:30)
[2016-06-20] MEDS ORDERED: FOLI1TAB4 PO (13:30)
[2016-06-20] MEDS ORDERED: LACT10SO PO (13:30)
[2016-06-20] MEDS ORDERED: VITA100T2 PO (13:30)
[2016-06-20] MEDS ORDERED: POTA10CA PO (13:30)
[2016-06-20] MEDS ORDERED: FURO20TA PO (13:30)
--- NOTE | 2016-06-20 13:32 | HHI.DS ---
Discharge Summary Admission Date Jun 11, 2016 at 20:13 Discharge Date: Jun 20, 2016 Admitting Diagnosis GI BLEED (1) GI bleed ICD Code: K92.2 (2) Alcohol abuse ICD Code: F10.10 (3) Dyslipidemia ICD Code: E78.5 (4) Elevated LFTs ICD Code: R79.89 (5) Coagulopathy ICD Code: D68.9 (6) Hypothyroidism ICD Code: E03.9 (7) Anasarca ICD Code: R60.1 Procedures none Brief History - From Admission 45-year-old female , Protestant presented to [place] emergency department due to she been vomiting blood every 2 hours. She has never done this before. She has never had endoscopy done. She refuses blood products due to early degenerative. She's been feeling tired and dizzy. She usually drinks one to 2 alcohol beverages per day. She did have an ultrasound in 2014 which showed abnormal echo texture to the liver and enlarged spleen suggestive of cirrhosis and possible portal hypertension. She has had a melanotic stool today and was also taking 2 ibuprofen twice daily for a history of Raynaud's. CBC/BMP: 06/20/16 0550 06/17/16 0416 Significant Findings Laboratory Tests Test 06/20/16 05:50 Red Blood Count 2.23 MIL/MM3 (4.00-5.30) Hemoglobin 7.4 GM/DL (11.6-15.3) Hematocrit 23.0 % (35.0-46.0) Mean Corpuscular Volume 103.4 FL (80.0-100.0) Red Cell Distribution Width 17.5 % (11.6-17.2) Platelet Count 70 TH/MM3 (150-450) Imaging Last Impressions Abdomen/Pelvis CT 06/19/16 0000 Signed Impressions: Service Date/Time: Sunday, June 19, 2016 19:49 - CONCLUSION: 1. Hepatosplenomegaly and moderate ascites. 2. Duodenal and proximal jejunal wall thickening. Infectious or inflammatory enteritis would be in the differential but wall thickening related to hepatic disease would also be conceivable. No obstruction. 3. Body wall edema/anasarca. 4. Small bilateral pleural effusions and mild atelectasis of the lung bases. Marv Zelaya MD Lower Extremity Ultrasound 06/16/16 Signed Impressions: Service Date/Time: Thursday, June 16, 2016 11:37 - CONCLUSION: Normal examination. Carolyn Rao MD Liver Ultrasound 06/14/16 Signed Impressions: Service Date/Time: Tuesday, June 14, 2016 15:31 - CONCLUSION: Heterogeneous liver with ascites and splenomegaly suggestive of underlying cirrhosis and portal hypertension. Marv Carlson MD Chest X-Ray 06/14/16 Signed Impressions: Service Date/Time: Tuesday, June 14, 2016 11:11 - CONCLUSION: 1. No acute cardiopulmonary findings. Cain Espinoza MD GI Bleed Scan Nuclear Medicine 06/13/16 Signed Impressions: Service Date/Time: June 15:20 - CONCLUSION: No active bleeding identified. Mayco Koo MD PE at Discharge GENERAL: NAD SKIN: Warm and dry. HEAD: Normocephalic. EYES: No scleral icterus. No injection or drainage. NECK: Supple, trachea midline. No JVD or lymphadenopathy. CARDIOVASCULAR: Regular rate and rhythm without murmurs, gallops, or rubs. RESPIRATORY: Breath sounds equal bilaterally. No accessory muscle use. GASTROINTESTINAL: Abdomen soft, non-tender, nondistended. MUSCULOSKELETAL: No cyanosis; +1 edema BLE. BACK: Nontender without obvious deformity. No CVA tenderness. Hospital Course 1) GI bleed-stable On Protonix and s/p Octreotide infusions d 06/14. Patient is Jehovah witness, requests NO BLOOD PRODUCT administration Status post IV Iron and Vitamin K 10mg daily. GI following 2)Severe Anemia Patient is Jehovah witness, requests NO BLOOD PRODUCT administration Status post IV Iron and Vitamin K 10mg daily . GI following 3)Coagulopathy 2nd ESLD von Willebrand factor levels>300% appropriate response to bleeding event Discontinue CBC check Monitor INR/PT Appreciate input from hematology 4)Thrombocytopenia Treat as in above 5) DANILO..improving 6)Hypothyroidism On Synthroid 112 mcg daily 7)ETOH use Continue rally pack, CIWA protocol,Lactulose 30ml BID ;monitor Ammonia level-23 on 04/12/17. 8)Hypokalemia-resolved 9)Anasarca-CT abdomen noted; will start short course of Lasix 20mg daily GI prophylaxis- Protonix DVT prophylaxis- Patient is not a candidate for AC prophylaxis due to GI bleed in addition she is coagulopathic due to Liver disease with INR 1.9 on 06/14. Pt Condition on Discharge: Stable Discharge Disposition: Discharge Home Discharge Time: > 30 minutes Discharge Instructions DIET: Follow Instructions for: Heart Healthy Diet Activities you can perform: Regular-No Restrictions Other Activity Instructions: NO alcohol Follow up Referrals: Gastroenterology PCP Follow-up - 1 Week New Medications: Ferrous Sulfate (Ferrous Sulfate) 325 Mg Tab 325 MG PO BID Nutritional Supplement #60 Ref 0 TAB Potassium Chloride ER (Potassium Chloride ER) 10 Meq Cap 10 MEQ PO DAILY Electrolyte Replacement #30 Ref 0 CAP Folic Acid (Folate) 1 Mg Tab 1 MG PO DAILY Alcohol Detox #30 TAB Furosemide (Furosemide) 20 Mg Tab 20 MG PO DAILY Blood Pressure Management #30 TAB Lactulose Liq (Lactulose Liq) 10 Gm/15 Ml Soln 30 ML PO DAILY Bowel Management #30 ML Pantoprazole (Pantoprazole) 40 Mg Tab 40 MG PO DAILY Manage Heartburn #30 TAB Thiamine (Vitamin B-1) 100 Mg Tab 100 MG PO DAILY Alcohol Detox #30 TAB Continued Medications: Levothyroxine (Levothyroxine) 112 Mcg Tab 1 TAB PO DAILY #30 Ref 0 TAB Gilles Waterman MD Jun 20, 2016 13:32
[2016-06-20] MEDS ORDERED: FUROSEMIDE 20 MG TAB PO SCH (14:00)
== END 2016-06-20 14:21 | disposition home or self-care (01) | DRG 378 ==
LOC: PHED 18:32 → PHEDA 20:13 → HIMN 06-12 01:55 → HOCA 06-18 06:35
PROVIDERS: ADMIT Internal Medicine Critical Care Medicine; ATTEND Hospitalist
PROC: 0DJ08ZZ Inspection of Upper Intestinal Tract, Via Natural or Artificial Opening Endoscopic (ICD-10-PCS; principal; 2016-06-12 12:45)
DX: K92.0 Hematemesis (principal); D68.4 Acquired coagulation factor deficiency; N17.9 Acute kidney failure, unspecified; K74.60 Unspecified cirrhosis of liver; K76.6 Portal hypertension; D69.6 Thrombocytopenia, unspecified; D62 Acute posthemorrhagic anemia; K20.9 Esophagitis, unspecified; K31.89 Other diseases of stomach and duodenum; E03.9 Hypothyroidism, unspecified; I10 Essential (primary) hypertension; I73.00 Raynaud's syndrome without gangrene; K29.70 Gastritis, unspecified, without bleeding; E87.6 Hypokalemia; K72.90 Hepatic failure, unspecified without coma; I85.00 Esophageal varices without bleeding; R60.1 Generalized edema; Z72.89 Other problems related to lifestyle; Z88.1 Allergy status to other antibiotic agents; Z88.5 Allergy status to narcotic agent
CPT/HCPCS: 71010; 74176; 76705; 78278; 80048; 80053; 80076; 80307; 81001; 82140; 82728; 82948; 83735; 84100; 84155; 85025; 85027; 85240; 85245; 85246; 85247; 85384; 85610; 85730; 93971; 96365; 96375; A9560; C9113; J0610; J0696; J0780; J1756; J2060; J2354; J2370; J2405; J3420; J3430; J3475; J3480; J7030; J7040; J7050; Q4081; Q9963

== ENCOUNTER 2017-07-07 20:39 | Inpatient (IN) | payer MEDICAID ==
[~2017-07-07] VITALS: Ht 175.3 cm; Wt 93.0 kg
[~2017-07-07 20:39] MED LIST changes: +FERR325T PO; +FOLI1TAB4 PO; +FURO20TA PO; +LACT10SO PO; -LISI10TA3 PO; -LORA-475 PO; +PANT40TA3 PO; +POTA10CA PO; -TOBRSUS9 RIGHT EYE; +VITA100T2 PO
[2017-07-07 21:02] VITALS: BP 121/56; PULSE 78; RESP 20; TEMP 99.4; O2SAT 99
[2017-07-07] MEDS ORDERED: SODIUM CHLOR 0.9% 1000 ML INJ 1,000 ML IV SCH (22:04)
[2017-07-07] MEDS ORDERED: FOLI1TAB6 PO (22:12)
[2017-07-07] MEDS ORDERED: ALUMINUM/MAGNESIUM/SIMETH 30 ML CUP PO ONE (22:15)
[2017-07-07] MEDS ORDERED: SODIUM CHLORIDE 0.9% FLUSH 10 ML FLUSH IV FLUSH PRN (22:15)
[2017-07-07] MEDS ORDERED: ATROPINE/SCOPOLAM/HYOSCYAM/PB ELIXIR 10 ML CUP PO ONE (22:15)
[2017-07-07] MEDS ORDERED: ONDANSETRON HCL 4 MG/2 ML VIAL IVP ONE (22:15)
[2017-07-07] MEDS ORDERED: PANTOPRAZOLE SODIUM 40 MG VIAL IVP ONE (22:15)
[2017-07-07] MEDS ORDERED: METO25TA3 PO (22:18)
[2017-07-07] MEDS ORDERED: SPIR50TA PO (22:18)
[2017-07-07] MEDS ORDERED: FURO1TAB60 PO (22:18)
--- NOTE | 2017-07-07 22:21 | PD ---
HPI Chief Complaint: Abdominal Pain Time Seen by Provider: 21:56 Travel History International Travel<30 days: No Contact w/Intl Traveler<30days: No Traveled to known affect area: No History of Present Illness HPI 47-year-old female complains of abdominal pain with nausea vomiting. Patient has history of GI bleed, alcohol abuse, liver cirrhosis with coagulopathy, anasarca, portal hypertension. Patient states that she has some wine last night. Patient started having abdominal pain started and umbilicus area with radiation to the epigastric and substernal area. Patient states that the pain is sharp pain burning pain. Patient states that she started having nausea vomiting subsequently. Patient denies any blood or mucus in the vomitus of the stool. Patient denies any fever chills. Patient denies any dysuria frequency. Patient denies any vaginal discharge or bleeding. On a scale from 1-10 the pain is a 10. PFSH Past Medical History Hx Anticoagulant Therapy: Yes (8 WEEKS AGO) Asthma: No Autoimmune Disease: No Anxiety: Yes Depression: No Heart Rhythm Problems: No Cancer: No Cardiovascular Problems: Yes High Cholesterol: No Chest Pain: Yes Congestive Heart Failure: No COPD: No Cerebrovascular Accident: No Diabetes: No Diminished Hearing: No Genitourinary: No Headaches: Yes Hypertension: Yes Immune Disorder: No Medical other: Yes ("SENSITIVE TO CHEMICALS") Musculoskeletal: Yes Neurologic: No Psychiatric: Yes Reproductive: No Respiratory: Yes (history of nosebleeds) Immunizations Current: Yes Migraines: Yes Seizures: No Sleep Apnea: No Thyroid Disease: Yes (Hypothyroidism) Tetanus Vaccination: > 5 Years Influenza Vaccination: Yes ?: Not LMP: 7 WEEKS AGO : 5 Para: 3 Miscarriage: 2 Past Surgical History Abdominal Surgery: No Body Medical Devices: 2 screws in her knee from acl surgery. Cardiac Surgery: No Ear Surgery: No Endocrine Surgery: No Eye Surgery: Yes (Lasik) Genitourinary Surgery: No Gynecologic Surgery: No Oral Surgery: No Thoracic Surgery: No Other Surgery: Yes (lt knee replacement) Social History Alcohol Use: Yes (2 GLASSES RED WINE A DAY) Tobacco Use: No Substance Use: No Allergies-Medications (Allergen,Severity, Reaction): Coded Allergies: acetaminophen (Unverified Allergy, Severe, 07/07/17) HIVES codeine (Unverified Allergy, Severe, 07/07/17) RASH propoxyphene (Unverified Allergy, Severe, 07/07/17) HIVES clarithromycin (Unverified Allergy, Intermediate, VOMITING, 07/07/17) morphine (Unverified Allergy, Unknown, HALUCINATIONS, 07/07/17) Reported Meds & Prescriptions Reported Meds & Active Scripts Active Potassium Chloride ER (Potassium Chloride) 10 Meq Cap 10 Meq PO DAILY Pantoprazole (Pantoprazole Sodium) 40 Mg Tab 40 Mg PO DAILY Reported Lasix (Furosemide) 40 Mg Tab 40 Mg PO DAILY Metoprolol Tartrate 25 Mg Tab 25 Mg PO DAILY Spironolactone 50 Mg Tab 50 Mg PO DAILY Folic Acid 1 Mg Tablet 1 Mg PO DAILY Levothyroxine (Levothyroxine Sodium) 112 Mcg Tab 1 Tab PO DAILY Review of Systems General / Constitutional: No: Fever Eyes: No: Visual changes HENT: No: Headaches Cardiovascular: No: Chest Pain or Discomfort Respiratory: No: Shortness of Breath Gastrointestinal: Positive: Nausea, Vomiting, Abdominal Pain Genitourinary: No: Dysuria Musculoskeletal: No: Pain Skin: No Rash Neurologic: No: Weakness Psychiatric: No: Depression Endocrine: No: Polydipsia Hematologic/Lymphatic: No: Easy Bruising Physical Exam Narrative GENERAL: Well-nourished, well-developed patient. SKIN: Focused skin assessment warm/dry. HEAD: Normocephalic. EYES: No scleral icterus. No injection or drainage. NECK: Supple, trachea midline. No JVD or lymphadenopathy. CARDIOVASCULAR: Regular rate and rhythm without murmurs, gallops, or rubs. RESPIRATORY: Breath sounds equal bilaterally. No accessory muscle use. GASTROINTESTINAL: Abdomen soft, nondistended. Patient has moderate tenderness on palpation epigastric area. No rebound tenderness. No mass. MUSCULOSKELETAL: No cyanosis, or edema. BACK: Nontender without obvious deformity. No CVA tenderness. Neurologic exam normal. Data Data Last Documented VS Vital Signs Date Time Temp Pulse Resp B/P (MAP) Pulse Ox O2 Delivery O2 Flow Rate FiO2 07/07/17 23:49 82 18 120/57 (78) 97 Room Air 07/07/17 21:02 99.4 Orders Orders Complete Blood Count With Diff (07/07/17 22:04) Comprehensive Metabolic Panel (07/07/17 22:04) Lipase (07/07/17 22:04) Urinalysis - C+S If Indicated (07/07/17 22:04) Ct Abd/Pel W Iv Contrast(Rout) (07/07/17 22:04) Iv Access Insert/Monitor (07/07/17 22:04) Ecg Monitoring (07/07/17 22:04) Oximetry (07/07/17 22:04) Ondansetron Inj (Zofran Inj) (07/07/17 22:15) Pantoprazole Inj (Protonix Inj) (07/07/17 22:15) Sodium Chlor 0.9% 1000 Ml Inj (Ns 1000 M (07/07/17 22:04) Sodium Chloride 0.9% Flush (Ns Flush) (07/07/17 22:15) Al-Mag Hy-Si 40-40-4 Mg/Ml Liq (Mag-Al P (07/07/17 22:15) Hbkey-Aqrruh-Ooabxi-Pb Liq ( Liq (07/07/17 22:15) Urine Culture (07/07/17 22:25) Potassium Chloride (Kcl) (07/07/17 23:15) Potassium Chlor 20 Meq Premix (Kcl 20 Me (07/07/17 23:15) Iohexol 350 Inj (Omnipaque 350 Inj) (07/07/17 23:31) Ceftriaxone Inj (Rocephin Inj) (07/08/17 01:00) Admit Order (Ed Use Only) (07/08/17 01:03) Labs Laboratory Tests Test 07/07/17 22:19 07/07/17 22:25 White Blood Count 7.8 TH/MM3 Red Blood Count 4.28 MIL/MM3 Hemoglobin 11.1 GM/DL Hematocrit 34.5 % Mean Corpuscular Volume 80.7 FL Mean Corpuscular Hemoglobin 26.0 PG Mean Corpuscular Hemoglobin Concent 32.2 % Red Cell Distribution Width 17.8 % Platelet Count 76 TH/MM3 Mean Platelet Volume 9.5 FL Neutrophils (%) (Auto) 82.0 % Lymphocytes (%) (Auto) 7.0 % Monocytes (%) (Auto) 8.9 % Eosinophils (%) (Auto) 1.0 % Basophils (%) (Auto) 1.1 % Neutrophils # (Auto) 6.4 TH/MM3 Lymphocytes # (Auto) 0.5 TH/MM3 Monocytes # (Auto) 0.7 TH/MM3 Eosinophils # (Auto) 0.1 TH/MM3 Basophils # (Auto) 0.1 TH/MM3 CBC Comment AUTO DIFF Differential Comment AUTO DIFF CONFIRMED Platelet Estimate LOW Platelet Morphology Comment NORMAL Blood Urea Nitrogen 7 MG/DL Creatinine 1.00 MG/DL Random Glucose 186 MG/DL Total Protein 6.9 GM/DL Albumin 3.0 GM/DL Calcium Level 7.8 MG/DL Alkaline Phosphatase 137 U/L Aspartate Amino Transf (AST/SGOT) 222 U/L Alanine Aminotransferase (ALT/SGPT) 113 U/L Total Bilirubin 8.3 MG/DL Sodium Level 137 MEQ/L Potassium Level 2.9 MEQ/L Chloride Level 100 MEQ/L Carbon Dioxide Level 30.6 MEQ/L Anion Gap 6 MEQ/L Estimat Glomerular Filtration Rate 59 ML/MIN Lipase GREATER THAN 78456 U/L Urine Color ORANGE Urine Turbidity SL CLOUDY Urine pH 5.5 Urine Specific [place] 1.025 Urine Protein 30 mg/dL Urine Glucose (UA) 100 mg/dL Urine Ketones TRACE mg/dL Urine Occult Blood NEG Urine Nitrite POS Urine Bilirubin LARGE Urine Urobilinogen 1.0 MG/DL Urine Leukocyte Esterase TRACE Urine RBC 0-3 /hpf Urine WBC 9-14 /hpf Urine Squamous Epithelial Cells > 8 /hpf Urine Amorphous Sediment MOD Urine Bacteria FEW /hpf Microscopic Urinalysis Comment CULTURE INDICATED MDM Medical Decision Making Medical Screen Exam Complete: Yes Emergency Medical Condition: Yes Interpretation(s) Last Impressions Abdomen/Pelvis CT 07/07/172203 Signed Impressions: Service Date/Time: Friday, July 07, 2017 23:15 - CONCLUSION: 1. Patient's symptoms appear to be due to acute pancreatitis as detailed above. 2. Diffuse hepatic fatty infiltration with a few benign appearing cysts in the left hepatic lobe. 3. Gallbladder is somewhat hydropic with some pericholecystic fluid probably all related to pancreatitis. Small gallstones. 4. Bilateral ovarian cysts, largest on the left measures 4.6 cm in diameter. Mayco Koo MD 12:51 AM. CBC WBC 7.8. Hemoglobin 11.1 hematocrit 34.5. Platelets 76. 82 neutrophil. Potassium 2.9. Calcium 7.8. Total bili 8.3. AST 222. ALT 113. Alkaline phosphatase 137. Lipase greater than 30,000. UA positive WBC and bacteria. Differential Diagnosis Differential diagnosis including gastritis, PUD, pancreatitis, cholecystitis, colitis, UTI, pyelonephritis, nephrolithiasis. Narrative Course 47-year-old female with epigastric abdominal pain. History of GI bleed, alcohol abuse, liver cirrhosis, portal hypertension and anasarca. Normal saline solution 1 25 cc an hour. Protonix 40 mg IV. Maalox 30 cc p.o. 10 cc p.o. Rocephin 1 g IV. KCl 40 mg p.o. given. KCl 20 mEq IV given. Diagnosis Primary Impression: Acute pancreatitis Qualified Codes: K85.20 - Alcohol induced acute pancreatitis without necrosis or infection Additional Impressions: UTI (urinary tract infection) Qualified Codes: N30.00 - Acute cystitis without hematuria Hypokalemia Admitting Information Admitting Physician Requests: Admit Wolf Macias MD Jul 07, 2017 22:20
[2017-07-07 22:26] LABS: AUTOMATED NEUTROPHIL # 6.4 TH/MM3 (1.8-7.7); BASOPHIL # 0.1 TH/MM3 (0-0.2); BASOPHIL % 1.1 % (0.0-2.0); EOSINOPHIL # 0.1 TH/MM3 (0-0.4); HEMATOCRIT 34.5 % (35.0-46.0); HEMOGLOBIN 11.1 GM/DL (11.6-15.3); LYMPHOCYTE # 0.5 TH/MM3 (1.0-4.8); MEAN CELL VOLUME 80.7 FL (80.0-100.0); MEAN CORPUSCULAR HGB CONC 32.2 % (32.0-36.0); MEAN PLATELET VOLUME 9.5 FL (7.0-11.0); MONO % 8.9 % (0.0-8.0); MONOCYTE # 0.7 TH/MM3 (0-0.9); PLATELET COUNT 76 TH/MM3 (150-450); RED BLOOD COUNT 4.28 MIL/MM3 (4.00-5.30); RED CELL DISTRIBUTION WIDTH 17.8 % (11.6-17.2); WHITE BLOOD COUNT 7.8 TH/MM3 (4.0-11.0)
[2017-07-07 22:39] LABS: BILIRUBIN, URINE LARGE (NEG); BLOOD, URINE NEG (NEG); GLUCOSE,URINE 100 mg/dL (NEG); KETONE, URINE TRACE mg/dL (NEG); NITRITE,URINE POS (NEG); PH, URINE 5.5 (5.0-8.5); URINE LEUKOCYTE ESTERASE TRACE (NEG)
[2017-07-07 22:42] LABS: URINE COLOR ORANGE (YELLW/STRAW)
[2017-07-07 22:49] LABS: AMORPHOUS SEDIMENT, URINE MOD; BACTERIA, URINE FEW /hpf; RBC, URINE 0-3 /hpf (0-3); SQUAMOUS EPITHELIAL CELL URINE > 8 /hpf (0-5)
[2017-07-07 22:53] VITALS: BP 106/44; PULSE 78; RESP 16; O2SAT 98
[2017-07-07 23:01] LABS: ALT (GPT) 113 U/L (10-53); AST (GOT) 222 U/L (15-37); CALCIUM 7.8 MG/DL (8.5-10.1); CHLORIDE 100 MEQ/L (98-107); GLOMERULAR FILTRATION RATE 59 ML/MIN (>89); GLUCOSE,RANDOM 186 MG/DL (74-106); TOTAL BILIRUBIN ADULT 8.3 MG/DL (0.2-1.0)
[2017-07-07 23:06] LABS: ALKALINE PHOSPHATASE 137 U/L (45-117); BLOOD UREA NITROGEN 7 MG/DL (7-18); SODIUM (NA) 137 MEQ/L (136-145); TOTAL PROTEIN 6.9 GM/DL (6.4-8.2)
[2017-07-07 23:07] LABS: BICARBONATE 30.6 MEQ/L (21.0-32.0)
[2017-07-07] MEDS ORDERED: POTASSIUM CHLORIDE 20 MEQ CONTROLLED RELEASE TAB PO ONE (23:15)
[2017-07-07] MEDS ORDERED: POTASSIUM CHLOR 20 MEQ PREMIX 100 ML IV ONE (23:15)
[2017-07-07] MEDS ORDERED: IOHEXOL 350 MG/ML 10 ML VIAL (for RAD DIAG) IVCONTRAST ONE (23:31)
[2017-07-07 23:34] VITALS: O2SAT 97
[2017-07-07 23:49] VITALS: BP 120/57; PULSE 82; RESP 18; O2SAT 97
[2017-07-08] VITALS (8 sets, daily range): BP systolic 101–121; BP diastolic 53–59; PULSE 58–84; RESP 15–20; TEMP 97.8–99; O2SAT 94–98
--- NOTE | 2017-07-08 00:01 | RADRPT ---
EXAM DATE/TIME: 07/07/2017 23:15 [facility] COMPARISON: No previous studies available for comparison. INDICATIONS : Epigastric pain. Nausea. Vomiting. IV CONTRAST: 100 cc Omnipaque 350 (iohexol) IV ORAL CONTRAST: No oral contrast ingested. RADIATION DOSE: 14.03 CTDIvol (mGy) MEDICAL HISTORY : Hypertension. SURGICAL HISTORY : None. ENCOUNTER: Initial ACUITY: 1 day PAIN SCALE: 10/10 LOCATION: Bilateral upper quadrant TECHNIQUE: Volumetric scanning of the abdomen and pelvis was performed. Using automated exposure control and ad justment of the mA and/or kV according to patient size, radiation dose was kept as low as reasonably achievable to obtain optimal diagnostic quality images. DICOM format image data is available electro nically for review and comparison. FINDINGS: LOWER LUNGS: The visualized lower lungs are clear. LIVER: At least 2 sub-centimeter cysts are seen in the left hepatic lobe. Diffusely diminished attenuation c haracteristic of fatty infiltration.. There is no dilation of the biliary tree. Small calcified gall stones. Gallbladder is somewhat hydropic. SPLEEN: Normal size without lesion. PANCREAS: Adenosine peripancreatic fluid and adjacent inflammatory changes characteristic of acute pancreatitis . There is some fluid tracking along the mesenteric leaves and right paracolic gutter into the pelvis KIDNEYS: Normal in size and shape. There is no mass, stone or hydronephrosis. ADRENAL GLANDS: Within normal limits. VASCULAR: There is no aortic aneurysm. BOWEL/MESENTERY: The stomach, small bowel, and colon demonstrate no acute abnormality. There is no free intraperitone al air or fluid. ABDOMINAL WALL: Within normal limits. RETROPERITONEUM: There is no lymphadenopathy. BLADDER: No wall thickening or mass. REPRODUCTIVE: Bilateral ovarian cysts with one on the right measuring 3.2 cm, larger than the left measuring 4.6 cm an additional left-sided 1.9 cm cyst. INGUINAL: There is no lymphadenopathy or hernia. MUSCULOSKELETAL: Within normal limits for patient age. CONCLUSION: 1. Patient's symptoms appear to be due to acute pancreatitis as detailed above. 2. Diffuse hepatic fatty infiltration with a few benign appearing cysts in the left hepatic lobe. 3. Gallbladder is somewhat hydropic with some pericholecystic fluid probably all related to pancreati tis. Small gallstones. 4. Bilateral ovarian cysts, largest on the left measures 4.6 cm in diameter. Mayco Koo MD on July 07, 2017 at 23:55 Board Certified Radiologist. This report was verified electronically.
[2017-07-08] MEDS ORDERED: cefTRIAXone INJ 1,000 MG in SODIUM CHLORIDE 0.9% INJ 100 ML IV ONE (01:00)
[2017-07-08] MEDS ORDERED: SODIUM CHLORIDE 0.9% FLUSH 10 ML FLUSH IV FLUSH PRN ×2 (01:45)
[2017-07-08] MEDS ORDERED: LORazepam 1 MG TAB PO PRN (01:45)
[2017-07-08] MEDS ORDERED: ONDANSETRON HCL 4 MG/2 ML VIAL IVP PRN (01:45)
[2017-07-08] MEDS ORDERED: LORazepam 2 MG TAB PO PRN (01:45)
[2017-07-08] MEDS ORDERED: MAGNESIUM HYDROXIDE SUSP 30 ML CUP PO PRN (01:45)
[2017-07-08] MEDS ORDERED: FLUMAZENIL 0.5 MG/5 ML VIAL IV PUSH PRN (01:45)
[2017-07-08] MEDS ORDERED: SENNOSIDES 8.6 MG TAB PO PRN (01:45)
[2017-07-08] MEDS ORDERED: BISACODYL 10 MG SUPP RECTAL PRN (01:45)
[2017-07-08] MEDS ORDERED: LACTULOSE SYRUP 20 GM/30 ML CUP PO PRN (01:45)
[2017-07-08] MEDS ORDERED: NALOXONE HCL 0.4 MG/ML AMP IV PUSH PRN (01:45)
[2017-07-08] MEDS ORDERED: LORazepam 2 MG/ML VIAL IV PUSH PRN ×4 (01:45)
[2017-07-08] MEDS: SODIUM CHLOR 0.9% 1000 ML INJ 1,000 ML IV SCH ×4 (02:35→23:54)
[2017-07-08] MEDS: LEVOTHYROXINE SODIUM 112 MCG TAB PO SCH (06:56)
[2017-07-08] MEDS: MULTIVITAMINS/MINERALS THERAPEUTIC TAB PO SCH (08:27)
[2017-07-08] MEDS: THIAMINE HCL 100 MG TAB PO SCH (08:28)
[2017-07-08] MEDS: FUROSEMIDE 40 MG TAB PO SCH (08:28)
[2017-07-08] MEDS: SPIRONOLACTONE 50 MG TAB PO SCH (08:28)
[2017-07-08] MEDS: FOLIC ACID 1 MG TAB PO SCH (08:28)
[2017-07-08] MEDS: METOPROLOL TARTRATE 25 MG TAB PO SCH (08:28)
[2017-07-08] MEDS: PANTOPRAZOLE SOD 40 MG DELAYED RELEASE TAB PO SCH (08:28)
[2017-07-08] MEDS: SODIUM CHLORIDE 0.9% FLUSH 10 ML FLUSH IV FLUSH SCH ×2 (08:31→21:00)
[2017-07-08] MEDS: POTASSIUM CHLORIDE 10 MEQ CAP PO SCH (08:40)
[2017-07-08 11:16] LABS: AUTOMATED NEUTROPHIL # 4.2 TH/MM3 (1.8-7.7); BASOPHIL % 0.8 % (0.0-2.0); EOSINOPHIL # 0.2 TH/MM3 (0-0.4); HEMATOCRIT 27.4 % (35.0-46.0); HEMOGLOBIN 8.9 GM/DL (11.6-15.3); LYMPH % 15.1 % (9.0-44.0); LYMPHOCYTE # 0.9 TH/MM3 (1.0-4.8); MEAN CORPUSCULAR HEMOGLOBIN 26.6 PG (27.0-34.0); MEAN CORPUSCULAR HGB CONC 32.5 % (32.0-36.0); MEAN PLATELET VOLUME 9.2 FL (7.0-11.0); MONO % 12.5 % (0.0-8.0); MONOCYTE # 0.7 TH/MM3 (0-0.9); NEUT % 68.6 % (16.0-70.0); PLATELET COUNT 60 TH/MM3 (150-450); RED BLOOD COUNT 3.34 MIL/MM3 (4.00-5.30); RED CELL DISTRIBUTION WIDTH 18.4 % (11.6-17.2)
[2017-07-08 11:57] LABS: ALBUMIN 2.5 GM/DL (3.4-5.0); BICARBONATE 27.3 MEQ/L (21.0-32.0); CALCIUM 7.1 MG/DL (8.5-10.1); CREATININE 0.92 MG/DL (0.50-1.00); DIRECT BILIRUBIN ADULT 5.9 MG/DL (0.0-0.2); INDIRECT BILIRUBIN 2.1 MG/DL (0.0-0.8); MAGNESIUM 1.8 MG/DL (1.5-2.5); TOTAL PROTEIN 5.6 GM/DL (6.4-8.2)
[2017-07-08 12:08] LABS: CALCIUM-PROTEIN CORRECTED 7.9 MG/DL (8.5-10.1)
--- NOTE | 2017-07-08 12:16 | HHI.HP ---
[facility] Oren Arceo D.O. Admission Diagnosis Acute pancreatitis Diagnoses: (1) UTI (urinary tract infection) (2) Acute pancreatitis (3) Hypokalemia (4) Elevated LFTs Chief Complaint: Abdominal pain Travel History International Travel<30 Days: No Contact w/Intl Traveler <30 Da: No Traveled to Known Affected Are: No History of Present Illness This is a 47-year-old female patient with a known medical of alcohol abuse, hypertension and hypothyroidism who presented to the ED with complaints of abdominal pain, nausea and vomiting. Patient states that she noticed the symptoms began roughly 2-1/2 weeks ago when she started to feel more fatigued and increasing abdominal pain while eating. Patient states that she had friends over on Friday night after eating and drinking a glass of wine she developed midsternal epigastric pain states it felt like heartburn, she later went to bed and awoke in the middle the night with worsening abdominal pain and associated nausea and vomiting. Denies any recent hematozemia. Patient does admit to history of GI bleed, alcohol abuse, liver cirrhosis with core neuropathy, portal hypertension. Patient denies frequent alcohol use, states she drinks roughly 1 glass of wine per week. Patient denies any any recent illness including fever, chills, cough, diarrhea or dysuria. Patient was last admitted in June of last year with GI bleed, followed with gastroenterology Dr. Esposito, but has not seen him for almost a year now. PCP is Dr. Arceo. Presented with lipase greater than 30,[address] with acute pancreatitis findings. Review of Systems Constitutional: DENIES: Fatigue, Fever, Chills Eyes: DENIES: Diplopia Respiratory: DENIES: Cough, Shortness of breath Cardiovascular: DENIES: Chest pain Gastrointestinal: COMPLAINS OF: Abdominal pain, Nausea, Vomiting, DENIES: Black stools, Bloody stools, Constipation, Diarrhea Musculoskeletal: DENIES: Joint pain Hematologic/lymphatic: DENIES: Bruising Neurologic: DENIES: Abnormal gait Psychiatric: COMPLAINS OF: Anxiety Except as stated in HPI: all other systems reviewed are Neg Past Family Social History Past Medical History End-stage liver disease Anxiety Hypertension Hypothyroidism Allergies Past Surgical History Left knee replacement Bilateral Lasix eye surgery Reported Medications Active Potassium Chloride ER (Potassium Chloride) 10 Meq Cap 10 Meq PO DAILY Pantoprazole (Pantoprazole Sodium) 40 Mg Tab 40 Mg PO DAILY Reported Lasix (Furosemide) 40 Mg Tab 40 Mg PO DAILY Metoprolol Tartrate 25 Mg Tab 25 Mg PO DAILY Spironolactone 50 Mg Tab 50 Mg PO DAILY Folic Acid 1 Mg Tablet 1 Mg PO DAILY Levothyroxine (Levothyroxine Sodium) 112 Mcg Tab 1 Tab PO DAILY Allergies: Coded Allergies: acetaminophen (Unverified Allergy, Severe, 07/07/17) HIVES codeine (Unverified Allergy, Severe, 07/07/17) RASH propoxyphene (Unverified Allergy, Severe, 07/07/17) HIVES clarithromycin (Unverified Allergy, Intermediate, VOMITING, 07/07/17) morphine (Unverified Allergy, Unknown, HALUCINATIONS, 07/07/17) Active Ordered Medications Current Medications Medications (Trade) Dose Ordered Sig/Miya Route Start Time Stop Time Status Last Admin Ceftriaxone Sodium 1000 mg/ Sodium Chloride 100 ml @ 200 mls/hr Q24H IV 07/09/17 01:00 Sodium Chloride 1,000 ml @ 175 mls/hr Q5H43M IV 07/08/17 01:34 07/08/17 08:41 (NS Flush) 2 ml UNSCH PRN IV FLUSH 07/08/17 01:45 (NS Flush) 2 ml BID IV FLUSH 07/08/17 09:00 (Zofran Inj) 4 mg Q6H PRN IVP 07/08/17 01:45 (Narcan Inj) 0.4 mg UNSCH PRN IV PUSH 07/08/17 01:45 (Milk Of Magnesia Liq) 30 ml Q12H PRN PO 07/08/17 01:45 (Senokot) 17.2 mg Q12H PRN PO 07/08/17 01:45 (Dulcolax Supp) 10 mg DAILY PRN RECTAL 07/08/17 01:45 (Lactulose Liq) 30 ml DAILY PRN PO 07/08/17 01:45 (Lasix) 40 mg DAILY PO 07/08/17 09:00 07/08/17 08:28 (Synthroid) 112 mcg DAILY@0700 PO 07/08/17 07:00 07/08/17 06:56 (Lopressor) 25 mg DAILY PO 07/08/17 09:00 07/08/17 08:28 (Protonix) 40 mg DAILY PO 07/08/17 09:00 07/08/17 08:28 (KCl) 10 meq DAILY PO 07/08/17 09:00 07/08/17 08:40 (Aldactone) 50 mg DAILY PO 07/08/17 09:00 07/08/17 08:28 (Folate) 1 mg DAILY PO 07/08/17 09:00 07/13/17 08:59 07/08/17 08:28 (Vitamin B1) 100 mg DAILY PO 07/08/17 09:00 07/08/17 08:28 (Theragran M Tab) 1 tab DAILY PO 07/08/17 09:00 07/13/17 08:59 07/08/17 08:27 (Romazicon Inj) 0.2 mg Q1M PRN IV PUSH 07/08/17 01:45 (Ativan) 1 mg Q4H PRN PO 07/08/17 01:45 (Ativan Inj) 1 mg Q4H PRN IV PUSH 07/08/17 01:45 (Ativan) 2 mg Q2H PRN PO 07/08/17 01:45 (Ativan Inj) 2 mg Q2H PRN IV PUSH 07/08/17 01:45 (Ativan Inj) 2 mg Q1H PRN IV PUSH 07/08/17 01:45 (Ativan Inj) 2 mg Q15M PRN IV PUSH 07/08/17 01:45 (Dilaudid Pf Inj) 0.2 mg Q4H PRN IV PUSH 07/08/17 14:00 (Percocet 5-325 Mg) 1 tab Q6H PRN PO 07/08/17 14:00 (Percocet 5-325 Mg) 2 tab Q6H PRN PO 07/08/17 14:00 Family History Denies any significant family medical history. Social History Patient states she drinks 1 glass of wine per week. Denies any tobacco abuse or illicit drug use. Physical Exam Vital Signs Vital Signs Date Time Temp Pulse Resp B/P (MAP) Pulse Ox O2 Delivery O2 Flow Rate FiO2 07/08/17 08:52 98.2 74 15 107/56 (73) 96 07/08/17 03:50 79 07/08/17 03:45 99.0 74 20 107/59 (75) 97 07/08/17 03:23 84 18 97 07/08/17 03:22 84 18 118/58 (78) 98 Room Air 07/08/17 01:28 80 18 121/56 (77) 97 Room Air 07/07/17 23:49 82 18 120/57 (78) 97 Room Air 07/07/17 23:34 97 07/07/17 22:53 78 16 106/44 (64) 98 Room Air 07/07/17 21:02 99.4 78 20 121/56 (77) 99 Physical Exam GENERAL: Well-developed, well-nourished patient in [facility]. SKIN: Warm and dry. No rash. HEAD: Normocephalic. Atraumatic. EYES: Pupils equal and round. No scleral icterus. No injection or drainage. ENT: No nasal bleeding or discharge. Mucous membranes pink and moist. NECK: Supple. Trachea midline. CARDIOVASCULAR: Regular rate and rhythm. S1, S2 noted. No murmur appreciated. RESPIRATORY: No accessory muscle use. Clear to auscultation. Breath sounds equal bilaterally. GASTROINTESTINAL: Abdominal pain to palpation in right upper and left upper quadrants. Normoactive bowel sounds x4. MUSCULOSKELETAL: No obvious deformities. Extremities without clubbing, cyanosis , or edema. NEUROLOGICAL: Awake and alert. No obvious cranial nerve deficits. Motor grossly within normal limits. 5/5 muscle strength in bilateral upper and lower extremities. Normal speech. PSYCHIATRIC: Appropriate mood and affect; insight and judgment normal. Laboratory Laboratory Tests Test 07/07/17 22:19 07/07/17 22:25 07/08/17 10:43 White Blood Count 7.8 6.0 Red Blood Count 4.28 3.34 Hemoglobin 11.1 8.9 Hematocrit 34.5 27.4 Mean Corpuscular Volume 80.7 82.0 Mean Corpuscular Hemoglobin 26.0 26.6 Mean Corpuscular Hemoglobin Concent 32.2 32.5 Red Cell Distribution Width 17.8 18.4 Platelet Count 76 60 Mean Platelet Volume 9.5 9.2 Neutrophils (%) (Auto) 82.0 68.6 Lymphocytes (%) (Auto) 7.0 15.1 Monocytes (%) (Auto) 8.9 12.5 Eosinophils (%) (Auto) 1.0 3.0 Basophils (%) (Auto) 1.1 0.8 Neutrophils # (Auto) 6.4 4.2 Lymphocytes # (Auto) 0.5 0.9 Monocytes # (Auto) 0.7 0.7 Eosinophils # (Auto) 0.1 0.2 Basophils # (Auto) 0.1 0.0 CBC Comment AUTO DIFF AUTO DIFF Differential Comment AUTO DIFF CONFIRMED AUTO DIFF CONFIRMED Platelet Estimate LOW Platelet Morphology Comment NORMAL Blood Urea Nitrogen 7 5 Creatinine 1.00 0.92 Random Glucose 186 155 Total Protein 6.9 5.6 Albumin 3.0 2.5 Calcium Level 7.8 7.1 Alkaline Phosphatase 137 109 Aspartate Amino Transf (AST/SGOT) 222 182 Alanine Aminotransferase (ALT/SGPT) 113 95 Total Bilirubin 8.3 8.0 Sodium Level 137 139 Potassium Level 2.9 3.0 Chloride Level 100 105 Carbon Dioxide Level 30.6 27.3 Anion Gap 6 7 Estimat Glomerular Filtration Rate 59 65 Lipase GREATER THAN [id number] Urine Color ORANGE Urine Turbidity SL CLOUDY Urine pH 5.5 Urine Specific [place] 1.025 Urine Protein 30 Urine Glucose (UA) 100 Urine Ketones TRACE Urine Occult Blood NEG Urine Nitrite POS Urine Bilirubin LARGE Urine Urobilinogen 1.0 Urine Leukocyte Esterase TRACE Urine RBC 0-3 Urine WBC 9-14 Urine Squamous Epithelial Cells > 8 Urine Amorphous Sediment MOD Urine Bacteria FEW Microscopic Urinalysis Comment CULTURE INDICATED Magnesium Level 1.8 Direct Bilirubin 5.9 Protein Corrected Calcium 7.9 Indirect Bilirubin 2.1 Date/Time Source Procedure Growth Status 07/07/17 22:25 Urine Clean Catch Urine Culture Pending Received Result Diagram: 07/08/17 1043 07/08/17 1043 Imaging Last Impressions Abdomen/Pelvis CT 07/07/174 Signed Impressions: Service Date/Time: Friday, July 07, 2017 23:15 - CONCLUSION: 1. Patient's symptoms appear to be due to acute pancreatitis as detailed above. 2. Diffuse hepatic fatty infiltration with a few benign appearing cysts in the left hepatic lobe. 3. Gallbladder is somewhat hydropic with some pericholecystic fluid probably all related to pancreatitis. Small gallstones. 4. Bilateral ovarian cysts, largest on the left measures 4.6 cm in diameter. Mayco Koo MD Septic Shock Reassessment Septic shock perfusion: reassessment completed Caprini VTE Risk Assessment Caprini VTE Risk Assessment: No/Low Risk (score <= 1) Caprini Risk Assessment Model Point Value = 1 Point Value = 2 Point Value = 3 Point Value = 5 Age 41-60 Minor surgery BMI > 25 kg/m2 Swollen legs Varicose veins or History of unexplained or recurrent spontaneous Oral contraceptives or hormone replacement Sepsis (< 1 month) Serious lung disease, including pneumonia (< 1 month) Abnormal pulmonary function Acute myocardial infarction Congestive heart failure (< 1 month) History of inflammatory bowel disease Medical patient at bed rest Age 61-74 Arthroscopic surgery Major open surgery (> 45 min) Laparoscopic surgery (> 45 min) Malignancy Confined to bed (> 72 hours) Immobilizing plaster cast Central venous access Age >= 75 History of VTE Family history of VTE Factor V Leiden Prothrombin [id number] Lupus anticoagulant Anticardiolipin antibodies Elevated serum homocysteine Heparin-induced thrombocytopenia Other congenital or acquired thrombophilia Stroke (< 1 month) Elective arthroplasty Hip, pelvis, or leg fracture Acute spinal cord injury (< 1 month) Prophylaxis Regimen Total Risk Factor Score Risk Level Prophylaxis Regimen 0-1 Low Early ambulation 2 Moderate Order ONE of the following: *Sequential Compression Device (SCD) *Heparin 5000 units SQ BID 3-4 Higher Order ONE of the following medications: *Heparin 5000 units SQ TID *Enoxaparin/Lovenox 40 mg SQ daily (WT < 150 kg, CrCl > 30 mL/min) *Enoxaparin/Lovenox 30 mg SQ daily (WT < 150 kg, CrCl > 10-29 mL/min) *Enoxaparin/Lovenox 30 mg SQ BID (WT < 150 kg, CrCl > 30 mL/min) AND/OR *Sequential Compression Device (SCD) 5 or more Highest Order ONE of the following medications: *Heparin 5000 units SQ TID (Preferred with Epidurals) *Enoxaparin/Lovenox 40 mg SQ daily (WT < 150 kg, CrCl > 30 mL/min) *Enoxaparin/Lovenox 30 mg SQ daily (WT < 150 kg, CrCl > 10-29 mL/min) *Enoxaparin/Lovenox 30 mg SQ BID (WT < 150 kg, CrCl > 30 mL/min) AND *Sequential Compression Device (SCD) Assessment and Plan Problem List: (1) Acute pancreatitis ICD Code: K85.90 - Acute pancreatitis without necrosis or infection, unspecified Status: Acute Plan: Transaminitis with hyperbilirubinemia, mildly improving overnight. Endstage liver disease Abdomen/pelvis CT reviewed showing acute pancreatitis. Fatty liver. With small gallstones in gallbladder. Incidental finding of ovarian cyst. Follow- up outpatient. Lipase greater than 30,000 upon presentation. Continue IVF. Monitor clear liquid diet toleration. Elevated random glucose, denies any history of diabetes likely secondary to pancreatitis. Will check A1c. Follow Hypokalemia suspect secondary to above. Order for replacement. Continue to monitor BMP. Magnesium stable. Pain control, IV Dilaudid for breakthrough pain, Percocet available PRN as needed per pain scale. Continue home Lasix, Spirolactone and potassium supplementation. Alcohol abuse. CIWA protocol, monitor for withdrawals. Continue multivitamin , folic acid. Consult placed to gastroenterology, patient known to Dr. Esposito, has not seen him for almost a year now. Total bilirubin worsening over the past year. Appreciate input recommendations. (2) Abnormal urinalysis ICD Code: R82.90 - Unspecified abnormal findings in urine Plan: UA showing presence of nitrates, leukocyte esterase and white blood cells. Await urine culture. Patient denies any dysuria. No leukocytosis. Afebrile. No signs of infection. Continue Ceftriaxone for now. Physician Certification 2 Midnight Certification Type: Admission for Inpatient Services Order for Inpatient Services The services are ordered in accordance with Medicare regulations or non- Medicare payer requirements, as applicable. In the case of services not specified as inpatient-only, they are appropriately provided as inpatient services in accordance with the 2-midnight benchmark. Estimated LOS (days): 3 3 days is the estimated time the patient will need to remain in the hospital, assuming treatment plan goals are met and no additional complications. Post-Hospital Plan: Home Problem Qualifiers (1) UTI (urinary tract infection): Qualified Codes: N30.00 - Acute cystitis without hematuria (2) Acute pancreatitis: Qualified Codes: K85.20 - Alcohol induced acute pancreatitis without necrosis or infection Renetta Gomez July 08, 2017 12:16
[2017-07-08] MEDS ORDERED: HYDROmorphone HCL PF 1 MG/ML VIAL IV PUSH PRN (14:00)
[2017-07-08] MEDS ORDERED: oxyCODONE/ACETAMINOPHEN 5 MG/325 MG TAB PO PRN (14:00)
[2017-07-08] MEDS: oxyCODONE/ACETAMINOPHEN 5 MG/325 MG TAB PO PRN ×2 (15:40→22:43)
[2017-07-09] VITALS (8 sets, daily range): BP systolic 92–121; BP diastolic 50–68; PULSE 60–100; RESP 18–20; TEMP 97.5–97.8; O2SAT 94–98
[2017-07-09] MEDS ORDERED: cefTRIAXone INJ 1,000 MG in SODIUM CHLORIDE 0.9% INJ 100 ML IV SCH (01:00)
[2017-07-09] MEDS: LEVOTHYROXINE SODIUM 112 MCG TAB PO SCH (05:45)
[2017-07-09] MEDS: SODIUM CHLOR 0.9% 1000 ML INJ 1,000 ML IV SCH ×3 (05:46→08:02)
[2017-07-09] MEDS: oxyCODONE/ACETAMINOPHEN 5 MG/325 MG TAB PO PRN (05:59)
[2017-07-09 06:31] LABS: BASOPHIL % 1.2 % (0.0-2.0); EOSINOPHIL # 0.1 TH/MM3 (0-0.4); HEMATOCRIT 27.1 % (35.0-46.0); HEMOGLOBIN 8.7 GM/DL (11.6-15.3); MEAN CELL VOLUME 82.8 FL (80.0-100.0); MEAN CORPUSCULAR HEMOGLOBIN 26.5 PG (27.0-34.0); MEAN PLATELET VOLUME 9.9 FL (7.0-11.0); MONO % 10.9 % (0.0-8.0); MONOCYTE # 0.4 TH/MM3 (0-0.9); NEUT % 56.9 % (16.0-70.0); PLATELET COUNT 55 TH/MM3 (150-450); RED BLOOD COUNT 3.28 MIL/MM3 (4.00-5.30); RED CELL DISTRIBUTION WIDTH 18.6 % (11.6-17.2); WHITE BLOOD COUNT 3.5 TH/MM3 (4.0-11.0)
[2017-07-09 06:52] LABS: ALBUMIN 2.4 GM/DL (3.4-5.0)
[2017-07-09 07:15] LABS: BICARBONATE 25.4 MEQ/L (21.0-32.0); CALCIUM 6.8 MG/DL (8.5-10.1); CALCIUM-PROTEIN CORRECTED 7.7 MG/DL (8.5-10.1); CREATININE 0.82 MG/DL (0.50-1.00); TOTAL BILIRUBIN ADULT 6.7 MG/DL (0.2-1.0); TOTAL PROTEIN 5.3 GM/DL (6.4-8.2)
[2017-07-09] MEDS ORDERED: POTASSIUM CHLORIDE 10 MEQ CONTROLLED RELEASE TAB PO ONE (07:45)
[2017-07-09] MEDS: PANTOPRAZOLE SOD 40 MG DELAYED RELEASE TAB PO SCH (07:58)
[2017-07-09] MEDS: THIAMINE HCL 100 MG TAB PO SCH (07:58)
[2017-07-09] MEDS: FOLIC ACID 1 MG TAB PO SCH (07:58)
[2017-07-09] MEDS: FUROSEMIDE 40 MG TAB PO SCH (07:59)
[2017-07-09] MEDS: SPIRONOLACTONE 50 MG TAB PO SCH (08:00)
[2017-07-09] MEDS: METOPROLOL TARTRATE 25 MG TAB PO SCH (08:00)
[2017-07-09] MEDS: MULTIVITAMINS/MINERALS THERAPEUTIC TAB PO SCH (08:00)
[2017-07-09] MEDS: POTASSIUM CHLORIDE 10 MEQ CAP PO SCH (08:01)
[2017-07-09] MEDS: SODIUM CHLORIDE 0.9% FLUSH 10 ML FLUSH IV FLUSH SCH (08:01)
--- NOTE | 2017-07-09 09:19 | HHI.PR ---
Subjective Remarks Follow-up acute pancreatitis. Patient seen and examined lying in bed comfortably in no apparent distress. Patient states she had a good night. Vital signs are stable. Afebrile. Tolerating clear liquids well, no nausea or vomiting no abdominal pain. Current pain regimen working. Mild drop in hemoglobin. We will continue to monitor. No bleeding noted. Mild hypokalemia. Replace today. Awaiting gastroenterology input. Lipase trending down. Objective Vitals Vital Signs Date Time Temp Pulse Resp B/P (MAP) Pulse Ox O2 Delivery O2 Flow Rate FiO2 07/09/17 08:00 60 07/09/17 07:50 97.8 68 20 121/68 (85) 94 07/09/17 06:59 18 07/09/17 04:00 97.6 64 18 92/50 (64) 95 07/09/17 00:00 97.6 78 18 100/55 (70) 95 07/08/17 20:00 58 07/08/17 20:00 97.8 76 18 102/55 (71) 94 07/08/17 17:07 98.9 68 16 101/55 (70) 94 07/08/17 12:29 98.5 68 15 104/53 (70) 95 I/O 07/08/17 07/08/17 07/08/17 07/09/17 07/09/17 07/09/17 07:00 15:00 23:00 07:00 15:00 23:00 Intake Total 503 ml 1179 ml 2202 ml 2845 ml Balance 503 ml 1179 ml 2202 ml 2845 ml Intake Oral 480 ml 1200 ml 845 ml IV Total 503 ml 699 ml 1002 ml 2000 ml # Voids 4 5 4 # Bowel Movements 0 Result Diagram: 07/09/17 0550 07/09/17 0550 Imaging Last Impressions Abdomen/Pelvis CT 07/07/172203 Signed Impressions: Service Date/Time: Friday, July 07, 2017 23:15 - CONCLUSION: 1. Patient's symptoms appear to be due to acute pancreatitis as detailed above. 2. Diffuse hepatic fatty infiltration with a few benign appearing cysts in the left hepatic lobe. 3. Gallbladder is somewhat hydropic with some pericholecystic fluid probably all related to pancreatitis. Small gallstones. 4. Bilateral ovarian cysts, largest on the left measures 4.6 cm in diameter. Mayco Koo MD Objective Remarks GENERAL: Well-developed, well-nourished patient in [facility]. SKIN: Warm and dry. No rash. HEAD: Normocephalic. Atraumatic. EYES: Pupils equal and round. No scleral icterus. No injection or drainage. ENT: No nasal bleeding or discharge. Mucous membranes pink and moist. NECK: Supple. Trachea midline. CARDIOVASCULAR: Regular rate and rhythm. S1, S2 noted. No murmur appreciated. RESPIRATORY: No accessory muscle use. Clear to auscultation. Breath sounds equal bilaterally. GASTROINTESTINAL: Abdominal pain to palpation in right upper and left upper quadrants. Normoactive bowel sounds x4. MUSCULOSKELETAL: No obvious deformities. Extremities without clubbing, cyanosis , or edema. NEUROLOGICAL: Awake and alert. No obvious cranial nerve deficits. Motor grossly within normal limits. 5/5 muscle strength in bilateral upper and lower extremities. Normal speech. PSYCHIATRIC: Appropriate mood and affect; insight and judgment normal. A/P Problem List: (1) Acute pancreatitis ICD Code: K85.90 - Acute pancreatitis without necrosis or infection, unspecified Status: Acute Plan: Transaminitis with hyperbilirubinemia, mildly improving overnight. Endstage liver disease Abdomen/pelvis CT reviewed showing acute pancreatitis. Fatty liver. With small gallstones in gallbladder. Incidental finding of ovarian cyst. Follow- up outpatient. Lipase greater than 30,000 upon presentation. Trending down. Continue IVF. Monitor clear liquid diet toleration. Elevated random glucose, denies any history of diabetes likely secondary to pancreatitis. Will check A1c. Pending. Hypokalemia suspect secondary to above. Order for replacement. Continue to monitor BMP. Magnesium stable. Pain control, IV Dilaudid for breakthrough pain, Percocet available PRN as needed per pain scale. Continue home Lasix, Spirolactone and potassium supplementation. Alcohol abuse. [facility] protocol, monitor for withdrawals. Continue multivitamin , folic acid. Consult placed to gastroenterology, patient known to Dr. Esposito, has not seen him for almost a year now. Total bilirubin worsening over the past year. Appreciate input recommendations. (2) Abnormal urinalysis ICD Code: R82.90 - Unspecified abnormal findings in urine Plan: UA showing presence of nitrates, leukocyte esterase and white blood cells. Urine culture with mixed gram-positive, probable contaminants. Patient denies any dysuria. No leukocytosis. Afebrile. No signs of infection. Will discontinue antibiotics. Problem Qualifiers (1) Acute pancreatitis: Qualified Codes: K85.20 - Alcohol induced acute pancreatitis without necrosis or infection Renetta Gomez July 09, 2017 09:19
[2017-07-09] MEDS: ACETAMINOPHEN/HYDROcodone 325 MG/5 MG TAB PO PRN ×3 (12:33→22:56)
--- NOTE | 2017-07-09 13:03 | PD.CONS ---
HPI History of Present Illness This is a 47 yr old female with history of liver cirrhosis , anemia , admitted to the hospital with complains of abdominal pain, nausea, vomiting , increased weakness for the last 2 weeks.Work-up suggestive of acute pancreatitis, most likely secondary etoh use .CT abdomen of pelvis suggesting pancreatitis, gallstone, fatty liver, mild pericholecystic fluid .She never had pancreatis in the past.Feeling better since admission to the hospital.She was admitted last year for gi bleeding, egd showed esophagitis.She states she had a colonoscopy, I ws unable to locate a report. She has pancytopenia, following with Yakov carlson .She had bone marrow biopsy also -we will obtain results.She follows with for her liver disease . 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 and is not accepting blood products [facility] Past Medical History End-stage liver disease Anxiety Hypertension Hypothyroidism Allergies Past Surgical History Left knee replacement Bilateral Lasix eye surgery Coded Allergies: acetaminophen (Unverified Allergy, Severe, 07/07/17) HIVES codeine (Unverified Allergy, Severe, 07/07/17) RASH propoxyphene (Unverified Allergy, Severe, 07/07/17) HIVES clarithromycin (Unverified Allergy, Intermediate, VOMITING, 07/07/17) morphine (Unverified Allergy, Unknown, HALUCINATIONS, 07/07/17) Family History Denies any significant family medical history. Social History Patient states she drinks 1 glass of wine per week. Denies any tobacco abuse or illicit drug use. Review of Systems Constitutional: COMPLAINS OF: Fatigue Endocrine: DENIES: Polydipsia, Polyuria Ears, nose, mouth, throat: DENIES: Hearing loss, Vertigo, Oral lesions, Throat pain, Hoarseness Respiratory: DENIES: Cough, Wheezing, Hemoptysis, Sputum production, Shortness of breath Cardiovascular: DENIES: Chest pain, Palpitations, Syncope, Lower Extremity Edema, Orthopnea, Claudication Gastrointestinal: COMPLAINS OF: Abdominal pain, Nausea, Heartburn Genitourinary: DENIES: Urinary frequency, Urinary incontinence, Urgency, Hematuria, Dysuria, Nocturia Musculoskeletal: DENIES: Joint pain, Muscle aches, Stiffness, Joint Swelling, Back pain, Neck pain Integumentary: COMPLAINS OF: Pruritus, Jaundice Hematologic/lymphatic: COMPLAINS OF: Bruising Immunologic/allergic: DENIES: Eczema, Urticaria Neurologic: DENIES: Abnormal gait, Headache, Localized weakness, Paresthesias Psychiatric: COMPLAINS OF: Confusion, DENIES: Anxiety, Mood changes, Depression , Agitation, Suicidal Ideation GI Exam Vitals I&O Vital Signs Date Time Temp Pulse Resp B/P (MAP) Pulse Ox O2 Delivery O2 Flow Rate FiO2 07/09/17 12:23 97.5 70 20 109/56 (73) 95 07/09/17 08:00 60 07/09/17 07:50 97.8 68 20 121/68 (85) 94 07/09/17 06:59 18 07/09/17 04:00 97.6 64 18 92/50 (64) 95 07/09/17 00:00 97.6 78 18 100/55 (70) 95 07/08/17 20:00 58 07/08/17 20:00 97.8 76 18 102/55 (71) 94 07/08/17 17:07 98.9 68 16 101/55 (70) 94 I/O 07/08/17 07/08/17 07/08/17 07/09/17 07/09/17 07/09/17 07:00 15:00 23:00 07:00 15:00 23:00 Intake Total 503 ml 1179 ml 2202 ml 2845 ml Balance 503 ml 1179 ml 2202 ml 2845 ml Intake Oral 480 ml 1200 ml 845 ml IV Total 503 ml 699 ml 1002 ml 2000 ml # Voids 4 5 4 5 # Bowel Movements 0 Laboratory Test 07/09/17 05:50 White Blood Count 3.5 TH/MM3 Red Blood Count 3.28 MIL/MM3 Hemoglobin 8.7 GM/DL Hematocrit 27.1 % Mean Corpuscular Volume 82.8 FL Mean Corpuscular Hemoglobin 26.5 PG Mean Corpuscular Hemoglobin Concent 32.0 % Red Cell Distribution Width 18.6 % Platelet Count 55 TH/MM3 Mean Platelet Volume 9.9 FL Neutrophils (%) (Auto) 56.9 % Lymphocytes (%) (Auto) 27.0 % Monocytes (%) (Auto) 10.9 % Eosinophils (%) (Auto) 4.0 % Basophils (%) (Auto) 1.2 % Neutrophils # (Auto) 2.0 TH/MM3 Lymphocytes # (Auto) 1.0 TH/MM3 Monocytes # (Auto) 0.4 TH/MM3 Eosinophils # (Auto) 0.1 TH/MM3 Basophils # (Auto) 0.0 TH/MM3 CBC Comment AUTO DIFF Differential Comment AUTO DIFF CONFIRMED Blood Urea Nitrogen 5 MG/DL Creatinine 0.82 MG/DL Random Glucose 83 MG/DL Total Protein 5.3 GM/DL Albumin 2.4 GM/DL Calcium Level 6.8 MG/DL Alkaline Phosphatase 109 U/L Aspartate Amino Transf (AST/SGOT) 137 U/L Alanine Aminotransferase (ALT/SGPT) 81 U/L Total Bilirubin 6.7 MG/DL Sodium Level 143 MEQ/L Potassium Level 3.2 MEQ/L Chloride Level 111 MEQ/L Carbon Dioxide Level 25.4 MEQ/L Anion Gap 7 MEQ/L Estimat Glomerular Filtration Rate 74 ML/MIN Protein Corrected Calcium 7.7 MG/DL Lipase 839 U/L Date/Time Source Procedure Growth Status 07/07/17 22:25 Urine Clean Catch Urine Culture - Final 50-100,000 CFU/ML MIXED GRAM POSITIVE... Complete Physical Examination HEENT: Pupils round and reactive to light; normocephalic; atraumatic; jaundice. Throat is clear. NECK: Neck is supple, no JVD, no lymphadenopathy. CHEST: Chest is clear to auscultation and percussion. CARDIAC: Regular rate and rhythm with no murmur gallop or rubs. ABDOMEN: Soft, distended, tender; hepatosplenomegaly; bowel sounds are present in all four quadrants. EXTREMITIES: No clubbing, cyanosis, or edema. SKIN: Normal; no rash; jaundice, easy bruising [employer]OL CLERK: No focal deficits; alert and oriented times three. Assessment and Plan Plan ASSESSMENT Liver cirrhosis secondary ETOH Pancreatitis secondary ETOH-improving elevated lfts secondary liver cirrhosis, pancreatitis Pancytopenia secondary liver cirrhosis Anemia-no indication of active bleeding Abdominal pain secondary pancreatitis RECOMMENDATION: obtain records from [facility] PPI monitor cbc, cmp clear liquid diet egd/banding in am MRCP HIDA scan if work-up negative avoid etoh/hepatotoxics Katrina Spaulding MD July 09, 2017 13:03
[2017-07-09 14:56] LABS: HEMOGLOBIN A1C 5.7 % (4.3-6.0)
[2017-07-09] MEDS ORDERED: LORazepam 2 MG/ML VIAL IV PUSH ONE (20:00)
[2017-07-10] VITALS (7 sets, daily range): BP systolic 98–108; BP diastolic 48–58; PULSE 63–72; RESP 16–20; TEMP 97–98.8; O2SAT 95–97
[2017-07-10] MEDS: SODIUM CHLORIDE 0.9% FLUSH 10 ML FLUSH IV FLUSH SCH ×3 (00:24→20:35)
[2017-07-10] MEDS: METOPROLOL TARTRATE 25 MG TAB PO SCH ×2 (06:27→09:11)
[2017-07-10] MEDS ORDERED: CHLORHEXIDINE GLUCONATE 2 % 1 PACK (2 CLOTHS) TOPICAL PRN (07:00)
[2017-07-10] MEDS ORDERED: POVIDONE IODINE 5% (ANTISEPSIS KIT) 4 APPLICATIONS EACH NARE PRN (07:00)
[2017-07-10] MEDS ORDERED: SODIUM CHLORID 0.9% 500 ML IV PRN (07:00)
[2017-07-10] MEDS ORDERED: LACTATED RINGER'S 1000 ML IV PRN (07:00)
--- NOTE | 2017-07-10 07:26 | GIPROC ---
[facility] [address] [place] [address], [id number] EGD PROCEDURE REPORT EXAM DATE: 07/10/2017 PATIENT NAME: Nava Joe MR #: [id number] BIRTHDATE: 1970 ATTENDING: Katrina Spaulding MD ORDER #: [id number] [employer] MEMBER: Esequiel Dodge and Margaux Cabrera STATUS: inpatient INDICATIONS: The patient is a 47 yr old female here for an EGD due to anemia, abdominal pain PROCEDURE PERFORMED: EGD w/ biopsy EGD w/ snare technique MEDICATIONS: None and Per Anesthesia. TOPICAL ANESTHETIC: none CONSENT: The patient understands the risks and benefits of the procedure and understands that these risks include, but are not limited to: sedation, allergic reaction, infection, perforation and/or bleeding. Alternative means of evaluation and treatment include, among others: physical exam, x-rays, and/or surgical intervention. The patient elects to proceed with this endoscopic procedure. medical equipment was checked for proper function. Hand hygiene and appropriate measures for infection prevention was taken. After the risks, benefits and alternatives of the procedure were thoroughly explained, Informed consent was verified, confirmed and timeout was successfully executed by the treatment team. The patient was anesthetized with topical anesthesia and the Pentax EG-[id number] endoscope was introduced through the mouth and advanced to the second portion of the duodenum. Retroflexed views revealed a hiatal hernia The gastroscope was then slowly withdrawn and removed. Duodenum normal-biopsy antral polyps- inflammatory-hot sanre polypectomy of 2 large one esophageal varices grade 1. ADVERSE EVENTS: There were no complications. IMPRESSIONS: 1. Duodenum normal-biopsy antral polyps- inflammatory-hot sanre polypectomy of 2 large one esophageal varices grade 1 2. Retroflexed views revealed a hiatal hernia RECOMMENDATIONS: 1. Await biopsy results. Biopsy results will not be ready for 7-10 days. If you don't hear from us in two weeks, call our office for biopsy results. 2. Anti-reflux regimen 3. Continue PPI 4. Advance diet pt/inr avoid etoh/nsaids PATIENT CONDITION: stable DISPOSITION: Inpatient REPEAT EXAM: Return 6 weeks as needed for EGD may need eus based on apthology report of gastric polyps Katrina Spaulding MD eSigned: Katrina Spaulding MD 07/10/2017 7:26 AM cc: PATIENT NAME: Nava Joe MR#: [id number]
[2017-07-10] MEDS ORDERED: DO NOT ADM ANY ANTICOAGULANT DRUGS PRN (09:00)
[2017-07-10] MEDS: POTASSIUM CHLORIDE 10 MEQ CAP PO SCH ×2 (09:00→12:15)
[2017-07-10] MEDS: MULTIVITAMINS/MINERALS THERAPEUTIC TAB PO SCH (09:11)
[2017-07-10] MEDS: LEVOTHYROXINE SODIUM 112 MCG TAB PO SCH (09:11)
[2017-07-10] MEDS: PANTOPRAZOLE SOD 40 MG DELAYED RELEASE TAB PO SCH (09:11)
[2017-07-10] MEDS: FUROSEMIDE 40 MG TAB PO SCH (09:12)
[2017-07-10] MEDS: THIAMINE HCL 100 MG TAB PO SCH (09:12)
[2017-07-10] MEDS: SPIRONOLACTONE 50 MG TAB PO SCH (09:12)
[2017-07-10] MEDS: FOLIC ACID 1 MG TAB PO SCH (09:12)
[2017-07-10] MEDS: ACETAMINOPHEN/HYDROcodone 325 MG/5 MG TAB PO PRN ×3 (09:19→20:25)
[2017-07-10 09:40] LABS: AUTOMATED NEUTROPHIL # 2.8 TH/MM3 (1.8-7.7); BASOPHIL # 0.1 TH/MM3 (0-0.2); BASOPHIL % 1.2 % (0.0-2.0); EOSINOPHIL # 0.2 TH/MM3 (0-0.4); EOSINOPHIL % 3.9 % (0.0-4.0); HEMATOCRIT 29.1 % (35.0-46.0); HEMOGLOBIN 9.4 GM/DL (11.6-15.3); LYMPH % 16.2 % (9.0-44.0); LYMPHOCYTE # 0.7 TH/MM3 (1.0-4.8); MEAN CELL VOLUME 82.7 FL (80.0-100.0); MEAN CORPUSCULAR HEMOGLOBIN 26.8 PG (27.0-34.0); MEAN CORPUSCULAR HGB CONC 32.4 % (32.0-36.0); MEAN PLATELET VOLUME 10.5 FL (7.0-11.0); MONO % 10.6 % (0.0-8.0); MONOCYTE # 0.5 TH/MM3 (0-0.9); NEUT % 68.1 % (16.0-70.0); PLATELET COUNT 73 TH/MM3 (150-450); RED BLOOD COUNT 3.53 MIL/MM3 (4.00-5.30); RED CELL DISTRIBUTION WIDTH 18.4 % (11.6-17.2); WHITE BLOOD COUNT 4.3 TH/MM3 (4.0-11.0)
[2017-07-10 09:54] LABS: INTERNATIONAL NORMALIZED RATIO 1.8 RATIO; PROTHROMBIN TIME - PATIENT 17.9 SEC (9.8-11.6)
[2017-07-10 10:10] LABS: CALCIUM 7.6 MG/DL (8.5-10.1)
[2017-07-10 10:11] LABS: ALBUMIN 2.5 GM/DL (3.4-5.0); BICARBONATE 26.9 MEQ/L (21.0-32.0); GLUCOSE,RANDOM 112 MG/DL (74-106)
[2017-07-10 10:14] LABS: ALT (GPT) 85 U/L (10-53); AST (GOT) 128 U/L (15-37); CREATININE 0.93 MG/DL (0.50-1.00); GLOMERULAR FILTRATION RATE 64 ML/MIN (>89)
--- NOTE | 2017-07-10 10:14 | RADRPT ---
EXAM DATE/TIME: 07/10/2017 09:47 [place] COMPARISON: CT ABDOMEN & PELVIS W CONTRAST, July 07, 2017, 23:15. INDICATIONS : Pancreatitis. MEDICAL HISTORY : Hypertension. Hypothyroidism. Liver disease. SURGICAL HISTORY : ACL repair, lasik eye surgery and endoscopy. ENCOUNTER: Initial ACUITY: 1 day PAIN SCORE: 4/10 LOCATION: Right upper quadrant TECHNIQUE: Multiplanar, multisequence magnetic resonance imaging of the abdomen was performed. High-resolution 3D dataset was utilized to reconstruct maximum-intensity projection (MIP) images. FINDINGS: INTRAHEPATIC BILE DUCTS: Within normal limits. No significant anatomical variant is present. EXTRAHEPATIC BILE DUCTS: The common bile duct and common hepatic duct measured between 3 and 4 mm. No stone is visualized. GALLBLADDER: The gallbladder is distended with mild gallbladder wall edema. There are small stones versus sludge l ayering in the dependent aspect of the gallbladder fundus. LIVER: The liver measures 18 cm in length and demonstrates a very mild degree of signal loss on out of phase imaging suggesting steatosis. There is a slightly nodular liver contour raising suspicion for cirrho sis. In the left lateral segment there is an 8mm T2 hyperintense lesion with features consistent with a cyst. No concerning lesion is seen on this noncontrast examination. PANCREAS: There is peripancreatic fluid and edema. Signal intensity is within normal limits on this noncontrast examination. Main pancreatic duct is small in size possibly related to edema of the pancreas. There is no duct dilatation or solid mass seen on this noncontrast examination. OTHER: There is trace pleural fluid bilaterally and there is a small amount of perihepatic fluid and free fl uid in the dependent pelvis. The celiac trunk is stable in size but mildly enlarged measuring 10 mm. Spleen is enlarged measuring 14.4 cm in length. There are bilateral adnexal/ovarian cystic lesions in the pelvis which appears simple and measured approximately 4.1 cm on the left and 3.3 cm on the righ t. CONCLUSION: 1. No common duct stones are seen. Gallbladder remains distended and contains small stones versus slu dge layering in the dependent aspect of the fundus. 2. Persistent peripancreatic fluid/edema consistent with acute pancreatitis. There is also a small vo lume of perihepatic free fluid and free fluid in the pelvis. Trace bilateral pleural effusions are pr esent. 3. Liver demonstrates a morphology suspicious for cirrhosis and demonstrates a mild degree of steatos is. There is also mild splenomegaly. 4. The bilateral adnexal cystic lesions are stable and measure up to 4.1 cm on the left. Marv Humphrey MD on July 10, 2017 at 10:04 Board Certified Radiologist. This report was verified electronically.
[2017-07-10 10:15] LABS: BLOOD UREA NITROGEN 4 MG/DL (7-18); TOTAL BILIRUBIN ADULT 6.4 MG/DL (0.2-1.0); TOTAL PROTEIN 5.8 GM/DL (6.4-8.2)
[2017-07-10 10:16] LABS: ALKALINE PHOSPHATASE 129 U/L (45-117)
[2017-07-10 10:19] LABS: CHLORIDE 109 MEQ/L (98-107); SODIUM (NA) 141 MEQ/L (136-145)
--- NOTE | 2017-07-10 14:24 | EKG ---
Date Performed: 07/09/2017 Time Performed: 18:10:10 PTAGE: 47 years EKG: Sinus rhythm WITH SHORT NV INTERVAL BORDERLINE ECG Since the PREVIOUS TRACING , no significant change noted PREVIOUS TRACIN01/30/2015 05.06 DOCTOR: Bhavani Cedeno Interpretating Date/Time 07/10/2017 14:19:14
--- NOTE | 2017-07-10 15:29 | HHI.PR ---
Subjective Remarks Follow-up acute pancreatitis. Patient seen and examined lying in bed comfortably no apparent distress. Tolerating p.o. intake no abdominal pain, nausea or vomiting. Spoke to GI, appreciate general surgery consult for dilated gallbladder and elevated LFTs. Vital signs stable. Afebrile. Objective Vitals Vital Signs Date Time Temp Pulse Resp B/P (MAP) Pulse Ox O2 Delivery O2 Flow Rate FiO2 07/10/17 12:00 97.0 63 16 107/58 (74) 96 07/10/17 08:00 98.7 71 16 98/48 (65) 95 07/10/17 08:00 62 16 106/62 (77) 94 07/10/17 07:45 66 16 110/71 (84) 97 07/10/17 07:30 98.8 63 16 139/62 (87) 99 07/10/17 06:51 97.7 70 18 100/53 (69) 97 07/10/17 04:00 97.7 70 18 100/53 (69) 97 07/10/17 00:00 98.6 72 20 103/58 (73) 97 07/09/17 20:00 97.7 62 20 121/58 (79) 98 07/09/17 18:23 20 07/09/17 17:26 100 07/09/17 16:03 97.6 96 20 106/66 (79) 96 I/O 07/09/17 07/09/17 07/09/17 07/10/17 07/10/17 07/10/17 07:00 15:00 23:00 07:00 15:00 23:00 Intake Total 2845 ml 2340 ml 0 ml 200 ml Balance 2845 ml 2340 ml 0 ml 200 ml Intake Oral 845 ml 240 ml 0 ml IV Total 2000 ml 2100 ml Other 200 ml # Voids 4 7 6 3 # Bowel Movements 0 Result Diagram: 07/10/17 0850 07/10/17 0850 Imaging Last Impressions Cholangiopancreatography MRI 07/10/17 0000 Signed Impressions: Service Date/Time: July 09:47 - CONCLUSION: 1. No common duct stones are seen. Gallbladder remains distended and contains small stones versus sludge layering in the dependent aspect of the fundus. 2. Persistent peripancreatic fluid/edema consistent with acute pancreatitis. There is also a small volume of perihepatic free fluid and free fluid in the pelvis. Trace bilateral pleural effusions are present. 3. Liver demonstrates a morphology suspicious for cirrhosis and demonstrates a mild degree of steatosis. There is also mild splenomegaly. 4. The bilateral adnexal cystic lesions are stable and measure up to 4.1 cm on the left. Marv Humphrey MD Abdomen/Pelvis CT 07/07/17 2204 Signed Impressions: Service Date/Time: Friday, July 07, 2017 23:15 - CONCLUSION: 1. Patient's symptoms appear to be due to acute pancreatitis as detailed above. 2. Diffuse hepatic fatty infiltration with a few benign appearing cysts in the left hepatic lobe. 3. Gallbladder is somewhat hydropic with some pericholecystic fluid probably all related to pancreatitis. Small gallstones. 4. Bilateral ovarian cysts, largest on the left measures 4.6 cm in diameter. Mayco Koo MD Objective Remarks GENERAL: Well-developed, well-nourished patient in NAD. SKIN: Warm and dry. No rash. HEAD: Normocephalic. Atraumatic. EYES: Pupils equal and round. No scleral icterus. No injection or drainage. ENT: No nasal bleeding or discharge. Mucous membranes pink and moist. NECK: Supple. Trachea midline. CARDIOVASCULAR: Regular rate and rhythm. S1, S2 noted. No murmur appreciated. RESPIRATORY: No accessory muscle use. Clear to auscultation. Breath sounds equal bilaterally. GASTROINTESTINAL: No abdominal pain to palpation.. Normoactive bowel sounds x4. MUSCULOSKELETAL: No obvious deformities. Extremities without clubbing, cyanosis , or edema. NEUROLOGICAL: Awake and alert. No obvious cranial nerve deficits. Motor grossly within normal limits. 5/5 muscle strength in bilateral upper and lower extremities. Normal speech. PSYCHIATRIC: Appropriate mood and affect; insight and judgment normal. A/P Problem List: (1) Acute pancreatitis ICD Code: K85.90 - Acute pancreatitis without necrosis or infection, unspecified Status: Acute Plan: Transaminitis with hyperbilirubinemia, mildly improving overnight. Endstage liver disease Abdomen/pelvis CT reviewed showing acute pancreatitis. Fatty liver. With small gallstones in gallbladder. Incidental finding of ovarian cyst. Follow- up outpatient. Lipase greater than 30,000 upon presentation. Trending down. Monitoring p.o. intake. Elevated random glucose, denies any history of diabetes likely secondary to pancreatitis. a1C 5.7. Hypokalemia suspect secondary to above. Order for replacement. Stable. Magnesium stable. Pain control, IV Dilaudid for breakthrough pain, Percocet available PRN as needed per pain scale. Continue home Lasix, Spirolactone and potassium supplementation. Alcohol abuse. [facility] protocol, monitor for withdrawals. Continue multivitamin , folic acid. Consult placed to gastroenterology, patient known to Dr. Esposito, has not seen him for almost a year now. Total bilirubin worsening over the past year. Appreciate input recommendations. EGD showing mild varices and some polyps. MRCP done today showing gallbladder distention, sludge and elevated LFTs. Appreciate input and recommendations. (2) Abnormal urinalysis ICD Code: R82.90 - Unspecified abnormal findings in urine Plan: UA showing presence of nitrates, leukocyte esterase and white blood cells. Urine culture with mixed gram-positive, probable contaminants. Patient denies any dysuria. No leukocytosis. Afebrile. No signs of infection. Will discontinue antibiotics. Problem Qualifiers (1) Acute pancreatitis: Qualified Codes: K85.20 - Alcohol induced acute pancreatitis without necrosis or infection Renetta Gomez July 10, 2017 15:29
[2017-07-10] MEDS ORDERED: LACTATED RINGER'S 1000 ML INJ 1,000 ML IV SCH (17:30)
[2017-07-10] MEDS ORDERED: diphenhydrAMINE HCL 50 MG CAP PO ONE (21:45)
[2017-07-11] VITALS: BP 101/56; PULSE 68; RESP 20; TEMP 98.7; O2SAT 96
[2017-07-11] MEDS: ACETAMINOPHEN/HYDROcodone 325 MG/5 MG TAB PO PRN ×6 (00:03→22:49)
[2017-07-11] MEDS: LEVOTHYROXINE SODIUM 112 MCG TAB PO SCH (06:19)
[2017-07-11 08:00] VITALS: BP 117/63; PULSE 69; RESP 17; TEMP 98.3; O2SAT 94
--- NOTE | 2017-07-11 08:04 | MB ---
cc: Junior Rico MD DATE: 07/11/2017 REASON FOR CONSULTATION: Elevated liver enzymes with a total bilirubin of 7 with gallbladder versus sludge. HISTORY OF PRESENT ILLNESS: This is a 47-year-old female who drank a fair amount in the past, stopped drinking about 13 months ago when she had a real severe GI bleed. She was doing fairly well, but then developed some midepigastric, right upper quadrant pain extending into her back. She came into the emergency room the 1st of the month and was evaluated and found to have acute pancreatitis with a lipase of greater than 30,000. She subsequently has had an MRCP which did not show any stones, but a thickened gallbladder with small stones versus sludge. She recently underwent an EGD by Dr. Spaulding yesterday showing some gastritis and a polyp and some esophageal varices. There is no active bleeding. Surgery was consulted to comment on the radiologic findings of her gallbladder. PAST MEDICAL HISTORY: Significant for hypertension. No cardiac history. No pulmonary history. No other GI problems except for above. REVIEW OF SYSTEMS: She just has complaints of midepigastric tenderness, right upper quadrant pain and mild nausea. No pulmonary or cardiac symptomatology. No problems. No neurologic problems. ALLERGIES: TYLENOL, CLARITHROMYCIN, CODEINE, MORPHINE, AND DARVOCET. MEDICATIONS: On an ambulatory basis, she was on Lasix, Synthroid, metoprolol, antacid, spironolactone and folic acid. PHYSICAL EXAMINATION: GENERAL: She is a petite 47-year-old female in no acute distress. She is resting in bed. NECK: Supple. LUNGS: Clear. HEART: Regular rate. ABDOMEN: Slightly tender in the midepigastric region and right upper quadrant. No surgical scars. No rebound or guarding. EXTREMITIES: Moves all extremities well. No clubbing, cyanosis or edema. NEUROLOGIC: She is alert and oriented, seems somewhat concerned with her medical condition. LABORATORY DATA: She had a white count of 4 yesterday. Her H and H is 9 and 29, which is down from 11 and 34 when she came in. Her potassium was 2.9 a couple days ago now is 3.8. All her liver enzymes are elevated with somewhat of a downward trend. Her lipase was greater than 30,000 and yesterday it was 453. Her total bilirubin was 8.3, yesterday it was 6.4. In the past, she has had serology on the that was all negative. She was worked up for von Willebrand's syndrome which was negative. I reviewed her esophagogastroduodenoscopy report by Dr. Spaulding. She had an MRCP showing no common duct stones. Gallbladder was distended. She had some fluid around her pancreas consistent with pancreatitis. CT scan of the abdomen showed similar findings. She does have bilateral ovarian cysts as well. ASSESSMENT: This is a 47-year-old female with a history of alcoholism in the past. She is insistent she is not drinking as she did in the past, although this past Friday she had a couple glasses of wine. Her amylase being elevated in the past is consistent with gallstone pancreatitis. No stones were seen on the MRCP. At this time with her amylase is trending downward, we will watch her total bilirubin as well. Of course, she is at increased risk of any surgical intervention because of her bleeding disorder. She is a [employer] and refuses any blood transfusions and this will somewhat complicate things. PLAN: At this time, we will watch her during this hospitalization. I do recommend she may benefit from cholecystectomy. It is just the fact of the timing of it and when would be the appropriate time. We will watch her over the next 3 to 4 days to see how her total bilirubin responds and then proceed accordingly. I discussed in detail with her laparoscopic cholecystectomy. She appeared to understand. I told her she is high risk because of her liver issues . we will await the timing of it depending on her clinical condition. Junior Rico MD JKASSIDY/ROSA , 07:35 AM , 08:03 AM DELIA
[2017-07-11] MEDS: THIAMINE HCL 100 MG TAB PO SCH (08:08)
[2017-07-11] MEDS: MULTIVITAMINS/MINERALS THERAPEUTIC TAB PO SCH (08:08)
[2017-07-11] MEDS: METOPROLOL TARTRATE 25 MG TAB PO SCH (08:10)
[2017-07-11] MEDS: POTASSIUM CHLORIDE 10 MEQ CAP PO SCH (08:10)
[2017-07-11] MEDS: FUROSEMIDE 40 MG TAB PO SCH (08:12)
[2017-07-11] MEDS: FOLIC ACID 1 MG TAB PO SCH (08:12)
[2017-07-11] MEDS: SPIRONOLACTONE 50 MG TAB PO SCH (08:12)
[2017-07-11] MEDS: PANTOPRAZOLE SOD 40 MG DELAYED RELEASE TAB PO SCH (08:12)
[2017-07-11] MEDS: SODIUM CHLORIDE 0.9% FLUSH 10 ML FLUSH IV FLUSH SCH ×2 (08:15→21:25)
--- NOTE | 2017-07-11 08:54 | HHI.GIFU ---
Subjective Remarks Currently resting in the bed, able to answer simple questions still having some generalized right and mid upper quadrant abdominal pain Current hemoglobin 9.4 no obvious bleeding WBC count normalized at 4.3 Discussed lab results with patient (Denisa Souza) Objective Vitals I&O Vital Signs Date Time Temp Pulse Resp B/P (MAP) Pulse Ox O2 Delivery O2 Flow Rate FiO2 07/11/17 08:00 98.3 69 17 117/63 (81) 94 07/11/17 00:00 98.7 68 20 101/56 (71) 96 07/10/17 22:02 20 07/10/17 20:00 98.8 67 20 108/53 (71) 96 07/10/17 16:00 97.5 67 16 107/53 (71) 96 07/10/17 12:00 97.0 63 16 107/58 (74) 96 I/O 07/10/17 07/10/17 07/10/17 07/11/17 07/11/17 07/11/17 07:00 15:00 23:00 07:00 15:00 23:00 Intake Total 0 ml 200 ml 600 ml 720 ml Balance 0 ml 200 ml 600 ml 720 ml Intake Oral 0 ml 600 ml 720 ml Other 200 ml # Voids 3 3 4 # Bowel Movements 0 Laboratory Date/Time Source Procedure Growth Status 07/07/17 22:25 Urine Clean Catch Urine Culture - Final 50-100,000 CFU/ML MIXED GRAM POSITIVE... Complete Imaging Last Impressions Cholangiopancreatography MRI 07/10/17 0000 Signed Impressions: Service Date/Time: July 09:47 - CONCLUSION: 1. No common duct stones are seen. Gallbladder remains distended and contains small stones versus sludge layering in the dependent aspect of the fundus. 2. Persistent peripancreatic fluid/edema consistent with acute pancreatitis. There is also a small volume of perihepatic free fluid and free fluid in the pelvis. Trace bilateral pleural effusions are present. 3. Liver demonstrates a morphology suspicious for cirrhosis and demonstrates a mild degree of steatosis. There is also mild splenomegaly. 4. The bilateral adnexal cystic lesions are stable and measure up to 4.1 cm on the left. Marv Humphrey MD Abdomen/Pelvis CT 07/07/172 Signed Impressions: Service Date/Time: Friday, July 07, 2017 23:15 - CONCLUSION: 1. Patient's symptoms appear to be due to acute pancreatitis as detailed above. 2. Diffuse hepatic fatty infiltration with a few benign appearing cysts in the left hepatic lobe. 3. Gallbladder is somewhat hydropic with some pericholecystic fluid probably all related to pancreatitis. Small gallstones. 4. Bilateral ovarian cysts, largest on the left measures 4.6 cm in diameter. Mayco Koo MD Physical Exam HEENT: Pupils round and reactive to light; normocephalic; atraumatic; + jaundice. NECK: Neck is supple, thin CHEST: Chest is clear without rhonchi or wheezing CARDIAC: Regular rate and rhythm ABDOMEN: Round, taut, some generalized mid and right upper quadrant abdominal discomfort with light palpation bowel sounds are present in all four quadrants. EXTREMITIES: No edema. SKIN: Dry, normal; no rash; DITCH WORKER: No focal deficits; alert and oriented times three. (Denisa Souza) Assessment and Plan Plan ASSESSMENT Liver cirrhosis secondary ETOH Pancreatitis secondary ETOH-improving elevated lfts secondary liver cirrhosis, pancreatitis Pancytopenia secondary liver cirrhosis Anemia-no indication of active bleeding Abdominal pain secondary pancreatitis EGD 07/10/17, Findings: Duodenum normal antral polyps- inflammatory, polypectomy of 2 large one esophageal varices grade, hiatal hernia 07/11/2017 results and labs reviewed with patient as well as her symptoms. Current hemoglobin 9.4, WBC count normalized at 4.3. INR 1.8, bilirubin 6.4, alkaline phosphatase 129, LFTs AST 128 ALT 85. MRCP showed no common bile duct stones are seen but gallbladder remains distended and contains small stones versus sludge persistent peripancreatic fluid and edema consistent with acute pancreatitis there is also a small volume of perihepatic free fluid and free fluid in the pelvis. Liver demonstrates suspicious for cirrhosis. According to patient she has been a fairly heavy drinker in the past and still consumes an occasional glass of wine at dinner. Patient states that Dr. Rico discussed with her possible gallbladder surgery within the next couple of days. Plan Diet heart healthy Await biopsy results. Anti-reflux regimen Continue PPI Alcohol abstinence discussed with patient No NSAIDs Patient may need EGD repeated in 6 weeks or may need EUS based on pathology report of gastric polyps Anti-emetics Bowel regimen as needed Further recommendations to follow Patient was seen per Dr. Duran and myself, note was written on his behalf (Denisa Souza) Plan Patient was seen and examined, agree with above note, possible cirrhosis, alcohol hepatitis, patient advised to stop drinking completely (Fabienne Duran MD) Denisa Souza July 11, 2017 08:54 Fabienne Duran MD July 11, 2017 11:06
--- NOTE | 2017-07-11 11:32 | HHI.PR ---
Subjective Remarks Follow-up acute pancreatitis and transaminitis. Patient seen and examined, lying in bed comfortably no apparent distress. No changes in clinical condition. Is improving. General surgery to see patient today, will evaluate overnight and reassess in the morning. Likely will undergo cholecystectomy depending on improvement of liver enzymes. Objective Vitals Vital Signs Date Time Temp Pulse Resp B/P (MAP) Pulse Ox O2 Delivery O2 Flow Rate FiO2 07/11/17 08:00 98.3 69 17 117/63 (81) 94 07/11/17 00:00 98.7 68 20 101/56 (71) 96 07/10/17 22:02 20 07/10/17 20:00 98.8 67 20 108/53 (71) 96 07/10/17 16:00 97.5 67 16 107/53 (71) 96 07/10/17 12:00 97.0 63 16 107/58 (74) 96 I/O 07/10/17 07/10/17 07/10/17 07/11/17 07/11/17 07/11/17 07:00 15:00 23:00 07:00 15:00 23:00 Intake Total 0 ml 200 ml 600 ml 720 ml Balance 0 ml 200 ml 600 ml 720 ml Intake Oral 0 ml 600 ml 720 ml Other 200 ml # Voids 3 3 4 # Bowel Movements 0 Result Diagram: 07/10/17 0850 07/10/17 0850 Imaging Last Impressions Cholangiopancreatography MRI 07/10/17 0000 Signed Impressions: Service Date/Time: July 09:47 - CONCLUSION: 1. No common duct stones are seen. Gallbladder remains distended and contains small stones versus sludge layering in the dependent aspect of the fundus. 2. Persistent peripancreatic fluid/edema consistent with acute pancreatitis. There is also a small volume of perihepatic free fluid and free fluid in the pelvis. Trace bilateral pleural effusions are present. 3. Liver demonstrates a morphology suspicious for cirrhosis and demonstrates a mild degree of steatosis. There is also mild splenomegaly. 4. The bilateral adnexal cystic lesions are stable and measure up to 4.1 cm on the left. Marv Humphrey MD Abdomen/Pelvis CT 07/07/17 6716 Signed Impressions: Service Date/Time: Friday, July 07, 2017 23:15 - CONCLUSION: 1. Patient's symptoms appear to be due to acute pancreatitis as detailed above. 2. Diffuse hepatic fatty infiltration with a few benign appearing cysts in the left hepatic lobe. 3. Gallbladder is somewhat hydropic with some pericholecystic fluid probably all related to pancreatitis. Small gallstones. 4. Bilateral ovarian cysts, largest on the left measures 4.6 cm in diameter. Mayco Koo MD Objective Remarks GENERAL: Well-developed, well-nourished patient in NAD. SKIN: Warm and dry. No rash. HEAD: Normocephalic. Atraumatic. EYES: Pupils equal and round. No scleral icterus. No injection or drainage. ENT: No nasal bleeding or discharge. Mucous membranes pink and moist. NECK: Supple. Trachea midline. CARDIOVASCULAR: Regular rate and rhythm. S1, S2 noted. No murmur appreciated. RESPIRATORY: No accessory muscle use. Clear to auscultation. Breath sounds equal bilaterally. GASTROINTESTINAL: No abdominal pain to palpation.. Normoactive bowel sounds x4. MUSCULOSKELETAL: No obvious deformities. Extremities without clubbing, cyanosis , or edema. NEUROLOGICAL: Awake and alert. No obvious cranial nerve deficits. Motor grossly within normal limits. 5/5 muscle strength in bilateral upper and lower extremities. Normal speech. PSYCHIATRIC: Appropriate mood and affect; insight and judgment normal. A/P Problem List: (1) Acute pancreatitis ICD Code: K85.90 - Acute pancreatitis without necrosis or infection, unspecified Status: Acute Plan: Transaminitis with hyperbilirubinemia, mildly improving overnight. Endstage liver disease Abdomen/pelvis CT reviewed showing acute pancreatitis. Fatty liver. With small gallstones in gallbladder. Incidental finding of ovarian cyst. Follow- up outpatient. Lipase greater than 30,000 upon presentation. Trending down. Monitoring p.o. intake. Resolved. Elevated random glucose, denies any history of diabetes likely secondary to pancreatitis. a1C 5.7. Resolved. Hypokalemia suspect secondary to above. Order for replacement. Stable. Magnesium stable. Resolved. Pain control, IV Dilaudid for breakthrough pain, Percocet available PRN as needed per pain scale. Patient has not needed IV pain medications. Continue home Lasix, Spirolactone and potassium supplementation. Alcohol abuse. [facility] protocol, monitor for withdrawals. Continue multivitamin , folic acid. Encourage cessation. Consult placed to gastroenterology, patient known to Dr. Esposito, has not seen him for almost a year now. Total bilirubin worsening over the past year. Gastroenterology following, appreciate input recommendations. EGD showing mild varices and some polyps. MRCP done showing gallbladder distention, sludge and elevated LFTs. General surgery consulted, appreciate input and recommendations. Will monitor LFTs, if improvement seen patient will possibly will undergo cholecystectomy. (2) Abnormal urinalysis ICD Code: R82.90 - Unspecified abnormal findings in urine Status: Resolved Problem Qualifiers (1) Acute pancreatitis: Qualified Codes: K85.20 - Alcohol induced acute pancreatitis without necrosis or infection Renetta Gomez July 11, 2017 11:32
[2017-07-11 12:00] VITALS: BP 116/56; PULSE 69; RESP 16; TEMP 97.4; O2SAT 97
[2017-07-11 16:00] VITALS: BP 110/52; PULSE 68; RESP 17; TEMP 98.4; O2SAT 98
[2017-07-11 20:00] VITALS: BP 120/65; PULSE 67; RESP 20; TEMP 98.9; O2SAT 98
[2017-07-12] VITALS: BP 116/60; PULSE 68; RESP 20; TEMP 99.6; O2SAT 96
[2017-07-12] MEDS: ACETAMINOPHEN/HYDROcodone 325 MG/5 MG TAB PO PRN ×4 (02:58→18:32)
[2017-07-12] MEDS: LEVOTHYROXINE SODIUM 112 MCG TAB PO SCH (06:43)
[2017-07-12 08:00] VITALS: BP 123/71; PULSE 65; RESP 17; TEMP 98; O2SAT 96
[2017-07-12] MEDS: PANTOPRAZOLE SOD 40 MG DELAYED RELEASE TAB PO SCH (08:04)
[2017-07-12] MEDS: SPIRONOLACTONE 50 MG TAB PO SCH (08:04)
[2017-07-12] MEDS: POTASSIUM CHLORIDE 10 MEQ CAP PO SCH (08:04)
[2017-07-12] MEDS: FUROSEMIDE 40 MG TAB PO SCH (08:04)
[2017-07-12] MEDS: THIAMINE HCL 100 MG TAB PO SCH (08:05)
[2017-07-12] MEDS: MULTIVITAMINS/MINERALS THERAPEUTIC TAB PO SCH (08:05)
[2017-07-12] MEDS: METOPROLOL TARTRATE 25 MG TAB PO SCH (08:05)
[2017-07-12] MEDS: FOLIC ACID 1 MG TAB PO SCH (08:05)
[2017-07-12] MEDS: SODIUM CHLORIDE 0.9% FLUSH 10 ML FLUSH IV FLUSH SCH (08:06)
[2017-07-12 08:08] LABS: ALBUMIN 2.1 GM/DL (3.4-5.0)
[2017-07-12 08:09] LABS: DIRECT BILIRUBIN ADULT 2.9 MG/DL (0.0-0.2)
[2017-07-12 08:15] LABS: TOTAL BILIRUBIN ADULT 3.9 MG/DL (0.2-1.0); TOTAL PROTEIN 5.3 GM/DL (6.4-8.2)
--- NOTE | 2017-07-12 11:22 | HHI.PR ---
Subjective Remarks Follow-up acute pancreatitis and transaminitis. Patient seen and examined, walking in halls in no apparent distress. Denies any change in clinical condition. States she has much improved and back to baseline. Tolerating p.o. intake well with no abdominal pain, nausea or vomiting. Awaiting general surgery recommendations for further evaluation or possible surgery. Liver enzymes trending down at this time. Objective Vitals Vital Signs Date Time Temp Pulse Resp B/P (MAP) Pulse Ox O2 Delivery O2 Flow Rate FiO2 07/12/17 08:00 98.0 65 17 123/71 (88) 96 07/12/17 00:00 99.6 68 20 116/60 (78) 96 07/11/17 20:19 18 07/11/17 20:00 98.9 67 20 120/65 (83) 98 07/11/17 16:00 98.4 68 17 110/52 (71) 98 07/11/17 12:00 97.4 69 16 116/56 (76) 97 I/O 07/11/17 07/11/17 07/11/17 07/12/17 07/12/17 07/12/17 07:00 15:00 23:00 07:00 15:00 23:00 Intake Total 720 ml 1360 ml 960 ml Balance 720 ml 1360 ml 960 ml Intake Oral 720 ml 1360 ml 960 ml # Voids 4 5 5 # Bowel Movements 1 Result Diagram: 07/10/17 0850 07/10/17 0850 Imaging Last Impressions Cholangiopancreatography MRI 07/10/17 0000 Signed Impressions: Service Date/Time: July 09:47 - CONCLUSION: 1. No common duct stones are seen. Gallbladder remains distended and contains small stones versus sludge layering in the dependent aspect of the fundus. 2. Persistent peripancreatic fluid/edema consistent with acute pancreatitis. There is also a small volume of perihepatic free fluid and free fluid in the pelvis. Trace bilateral pleural effusions are present. 3. Liver demonstrates a morphology suspicious for cirrhosis and demonstrates a mild degree of steatosis. There is also mild splenomegaly. 4. The bilateral adnexal cystic lesions are stable and measure up to 4.1 cm on the left. Marv Humphrey MD Abdomen/Pelvis CT 07/07/172 Signed Impressions: Service Date/Time: Friday, July 07, 2017 23:15 - CONCLUSION: 1. Patient's symptoms appear to be due to acute pancreatitis as detailed above. 2. Diffuse hepatic fatty infiltration with a few benign appearing cysts in the left hepatic lobe. 3. Gallbladder is somewhat hydropic with some pericholecystic fluid probably all related to pancreatitis. Small gallstones. 4. Bilateral ovarian cysts, largest on the left measures 4.6 cm in diameter. Mayco Koo MD Objective Remarks GENERAL: Well-developed, well-nourished patient in NAD. SKIN: Warm and dry. No rash. HEAD: Normocephalic. Atraumatic. EYES: Pupils equal and round. No scleral icterus. No injection or drainage. ENT: No nasal bleeding or discharge. Mucous membranes pink and moist. NECK: Supple. Trachea midline. CARDIOVASCULAR: Regular rate and rhythm. S1, S2 noted. No murmur appreciated. RESPIRATORY: No accessory muscle use. Clear to auscultation. Breath sounds equal bilaterally. GASTROINTESTINAL: No abdominal pain to palpation.. Normoactive bowel sounds x4. MUSCULOSKELETAL: No obvious deformities. Extremities without clubbing, cyanosis , or edema. NEUROLOGICAL: Awake and alert. No obvious cranial nerve deficits. Motor grossly within normal limits. 5/5 muscle strength in bilateral upper and lower extremities. Normal speech. PSYCHIATRIC: Appropriate mood and affect; insight and judgment normal. A/P Problem List: (1) Acute pancreatitis ICD Code: K85.90 - Acute pancreatitis without necrosis or infection, unspecified Status: Acute Plan: Transaminitis with hyperbilirubinemia, mildly improving overnight. Endstage liver disease Abdomen/pelvis CT reviewed showing acute pancreatitis. Fatty liver. With small gallstones in gallbladder. Incidental finding of ovarian cyst. Follow- up outpatient. Lipase greater than 30,000 upon presentation. Trending down. Monitoring p.o. intake. Resolved. Elevated random glucose, denies any history of diabetes likely secondary to pancreatitis. a1C 5.7. Resolved. Hypokalemia suspect secondary to above. Order for replacement. Stable. Magnesium stable. Resolved. Pain control, [place] available PRN as needed per pain scale. Continue home Lasix, Spirolactone and potassium supplementation. Alcohol abuse. [facility] protocol, monitor for withdrawals. Continue multivitamin , folic acid. Encourage cessation. Consult placed to gastroenterology, patient known to Dr. Esposito, has not seen him for almost a year now. Total bilirubin worsening over the past year. Gastroenterology signed off, labs improving. EGD showing mild varices and some polyps. MRCP done showing gallbladder distention, sludge and elevated LFTs. General surgery consulted, appreciate input and recommendations. Will monitor LFTs, if improvement seen patient will possibly will undergo cholecystectomy. Await final recommendations. Problem Qualifiers (1) Acute pancreatitis: Qualified Codes: K85.20 - Alcohol induced acute pancreatitis without necrosis or infection Renetta Gomez July 12, 2017 11:21
[2017-07-12 12:00] VITALS: BP 123/69; PULSE 70; RESP 16; TEMP 99.8; O2SAT 97
--- NOTE | 2017-07-12 12:20 | HHI.GIFU ---
GI Follow-up Note Consult Follow-up Subjective: Patient laying in bed comfortably, feeing better.General surgery evaluated her , cholecystectomy, time to be determined . no nausea, vomiting, abdominal pain, bleeding. tolerating diet well. Objective: PHYSICAL EXAMINATION: Vitals signs stable No fever Vital Signs Date Time Temp Pulse Resp B/P (MAP) Pulse Ox O2 Delivery O2 Flow Rate FiO2 07/12/17 08:00 98.0 65 17 123/71 (88) 96 HEENT: Pupils round and reactive to light; normocephalic; atraumatic; no jaundice. Throat is clear. NECK: Neck is supple, no JVD, no lymphadenopathy. CHEST: Chest is clear to auscultation and percussion. CARDIAC: Regular rate and rhythm with no murmur gallop or rubs. ABDOMEN: Soft, nondistended, nontender; no hepatosplenomegaly; bowel sounds are present in all four quadrants. EXTREMITIES: No clubbing, cyanosis, or edema. SKIN: Normal; no rash; no jaundice. [employer]: No focal deficits; alert and oriented times three. Available Data (labs, X- Rays, Procedues) : Laboratory Tests Test 07/12/17 07:00 Total Bilirubin 3.9 MG/DL Direct Bilirubin 2.9 MG/DL Indirect Bilirubin 1.0 MG/DL Aspartate Amino Transf (AST/SGOT) 96 U/L Alanine Aminotransferase (ALT/SGPT) 66 U/L Alkaline Phosphatase 117 U/L Total Protein 5.3 GM/DL Albumin 2.1 GM/DL Lipase 937 U/L ASSESSMENT/PLAN: Liver cirrhosis secondary etoh - avoid etoh , hepatotoxics [id number] esophageal varices grade 1 - no need for banding at this time pancreatis secondary etoh and cholecystitis cholecystitis-awaiting timing for cholecystectomy Recommendations cholecystectomy as per surgery start nonselective betablockers upon dc egd/colon plus minus banding in 3 month fu gi of her choice in 2 weeks avoid etoh, hepatotoxics iron/vit c fu with hematology op gi will sign off call as needed It was a pleasure seeing Nava Joe. Thank you for this consult. Entered by: Katrina Thakur MD July 12, 2017 12:20
[2017-07-12 16:00] VITALS: BP 106/54; PULSE 61; RESP 17; TEMP 99.1; O2SAT 98
[2017-07-12] MEDS ORDERED: LEVO-168 PO (18:21)
[2017-07-12] MEDS ORDERED: HYDR-3516 PO (18:21)
[2017-07-12] MEDS ORDERED: SPIR50TA PO (18:21)
[2017-07-12] MEDS ORDERED: PANT40TA3 PO (18:21)
[2017-07-12] MEDS ORDERED: POTA10CA PO (18:21)
[2017-07-12] MEDS ORDERED: FURO1TAB60 PO (18:21)
[2017-07-12] MEDS ORDERED: FOLI1TAB6 PO (18:21)
[2017-07-12] MEDS ORDERED: METO25TA3 PO (18:21)
--- NOTE | 2017-07-12 18:22 | HHI.DCPOC ---
Discharge Care Plan Diagnosis: (1) Elevated LFTs (2) Acute pancreatitis Goals to Promote Your Health * To prevent worsening of your condition and complications * To maintain your health at the optimal level Directions to Meet Your Goals Take your medications as prescribed Follow your dietary instruction Follow activity as directed Keep your appointments as scheduled Take your immunizations and boosters as scheduled If your symptoms worsen call your PCP, if no PCP go to Urgent Care Center or Emergency Room Smoking is Dangerous to Your Health. Avoid second hand smoke Call the 24-hour hour crisis hotline for domestic abuse at Randal Galeano DO July 12, 2017 18:22
--- NOTE | 2017-07-13 17:17 | HHI.DS ---
Discharge Summary Admission Date July 08, 2017 at 01:05 Discharge Date: July 13, 2017 Admitting Diagnosis Acute pancreatitis (1) Acute pancreatitis ICD Code: K85.90 - Acute pancreatitis without necrosis or infection, unspecified Status: Acute Procedures See below. Brief History - From Admission This is a 47-year-old female patient with a known medical of alcohol abuse, hypertension and hypothyroidism who presented to the ED with complaints of abdominal pain, nausea and vomiting. Patient states that she noticed the symptoms began roughly 2-1/2 weeks ago when she started to feel more fatigued and increasing abdominal pain while eating. Patient states that she had friends over on Friday night after eating and drinking a glass of wine she developed midsternal epigastric pain states it felt like heartburn, she later went to bed and awoke in the middle the night with worsening abdominal pain and associated nausea and vomiting. Denies any recent hematozemia. Patient does admit to history of GI bleed, alcohol abuse, liver cirrhosis with core neuropathy, portal hypertension. Patient denies frequent alcohol use, states she drinks roughly 1 glass of wine per week. Patient denies any any recent illness including fever, chills, cough, diarrhea or dysuria. Patient was last admitted in June of last year with GI bleed, followed with gastroenterology Dr. Esposito, but has not seen him for almost a year now. PCP is Dr. Arceo. Presented with lipase greater than 30,[address] with acute pancreatitis findings. CBC/BMP: 07/10/17 0850 07/10/17 0850 Significant Findings Laboratory Tests Test 07/12/17 07:00 Total Bilirubin 3.9 MG/DL (0.2-1.0) Direct Bilirubin 2.9 MG/DL (0.0-0.2) Indirect Bilirubin 1.0 MG/DL (0.0-0.8) Aspartate Amino Transf (AST/SGOT) 96 U/L (15-37) Alanine Aminotransferase (ALT/SGPT) 66 U/L (10-53) Total Protein 5.3 GM/DL (6.4-8.2) Albumin 2.1 GM/DL (3.4-5.0) Lipase 937 U/L (73-393) Imaging Last Impressions Cholangiopancreatography MRI 07/10/17 0000 Signed Impressions: Service Date/Time: July 09:47 - CONCLUSION: 1. No common duct stones are seen. Gallbladder remains distended and contains small stones versus sludge layering in the dependent aspect of the fundus. 2. Persistent peripancreatic fluid/edema consistent with acute pancreatitis. There is also a small volume of perihepatic free fluid and free fluid in the pelvis. Trace bilateral pleural effusions are present. 3. Liver demonstrates a morphology suspicious for cirrhosis and demonstrates a mild degree of steatosis. There is also mild splenomegaly. 4. The bilateral adnexal cystic lesions are stable and measure up to 4.1 cm on the left. Marv Humphrey MD Abdomen/Pelvis CT 07/07/172203 Signed Impressions: Service Date/Time: Friday, July 07, 2017 23:15 - CONCLUSION: 1. Patient's symptoms appear to be due to acute pancreatitis as detailed above. 2. Diffuse hepatic fatty infiltration with a few benign appearing cysts in the left hepatic lobe. 3. Gallbladder is somewhat hydropic with some pericholecystic fluid probably all related to pancreatitis. Small gallstones. 4. Bilateral ovarian cysts, largest on the left measures 4.6 cm in diameter. Mayco Koo MD PE at Discharge GENERAL: Well-developed, well-nourished patient in NAD. SKIN: Warm and dry. No rash. HEAD: Normocephalic. Atraumatic. EYES: Pupils equal and round. No scleral icterus. No injection or drainage. ENT: No nasal bleeding or discharge. Mucous membranes pink and moist. NECK: Supple. Trachea midline. CARDIOVASCULAR: Regular rate and rhythm. S1, S2 noted. No murmur appreciated. RESPIRATORY: No accessory muscle use. Clear to auscultation. Breath sounds equal bilaterally. GASTROINTESTINAL: No abdominal pain to palpation.. Normoactive bowel sounds x4. MUSCULOSKELETAL: No obvious deformities. Extremities without clubbing, cyanosis , or edema. NEUROLOGICAL: Awake and alert. No obvious cranial nerve deficits. Motor grossly within normal limits. 5/5 muscle strength in bilateral upper and lower extremities. Normal speech. PSYCHIATRIC: Appropriate mood and affect; insight and judgment normal. Hospital Course This is a 47-year-old female patient with a known medical of alcohol abuse, hypertension and hypothyroidism who presented to the ED with complaints of abdominal pain, nausea and vomiting. Transaminitis with hyperbilirubinemia, mildly improving overnight. Patient with endstage liver disease. Abdomen/pelvis CT showing acute pancreatitis. Fatty liver. With small gallstones in gallbladder. Incidental finding of ovarian cyst. Patient to follow-up outpatient. Lipase greater than 30,000 upon presentation, trended down. Elevated random glucose, denies any history of diabetes likely secondary to pancreatitis. a1C 5.7. Patient with hypokalemia, supplements ordered and resolved before dc. Patient was continued home Lasix, Spirolactone and potassium supplementation. Patient with alcohol abuse. [facility] protocol, no withdrawals. Continue multivitamin, folic acid. Gastroenterology, patient known to Dr. Esposito, has not seen him for almost a year now. Followed during hospitalization. Total bilirubin worsened and improved prior to dc. EGD was done showing mild varices and some polyps. MRCP done showing gallbladder distention, sludge and elevated LFTs. General surgery consulted with no surgical intervention at this time. Will plan for cholecystectomy outpatient, f/ u in office. Pt Condition on Discharge: Stable Discharge Disposition: Discharge Home Discharge Time: > 30 minutes Discharge Instructions DIET: Follow Instructions for: Heart Healthy Diet Activities you can perform: Weight Bearing as Marek Follow up Referrals: Gastroenterology - 2 Weeks PCP Follow-up - 1 Week Surgical - 1 Week with Junior Rico MD New Medications: Hydrocodone/Acetaminophen (Hydrocodone-Acetamin 5-325 mg) 5 Mg-325 Mg Tablet 1 TAB PO Q4H PRN for pain 1-10, #12 TAB Continued Medications: Folic Acid (Folic Acid) 1 Mg Tablet 1 MG PO DAILY for vitamin, #30 TAB (This prescription has been renewed) Furosemide (Lasix) 40 Mg Tab 40 MG PO DAILY for Diuretic, #30 TAB 0 Refills (This prescription has been renewed) Levothyroxine (Levothyroxine) 112 Mcg Tab 1 TAB PO DAILY for thyroid, #30 TAB 0 Refills (This prescription has been renewed) Metoprolol Tartrate (Metoprolol Tartrate) 25 Mg Tab 25 MG PO DAILY for heart, #30 TAB 0 Refills (This prescription has been renewed) Pantoprazole (Pantoprazole) 40 Mg Tab 40 MG PO DAILY for Manage Heartburn, #30 TAB (This prescription has been renewed ) Potassium Chloride ER (Potassium Chloride ER) 10 Meq Cap 10 MEQ PO DAILY for Electrolyte Replacement, #30 CAP 0 Refills (This prescription has been renewed) Spironolactone (Spironolactone) 50 Mg Tab 50 MG PO DAILY for heart, #30 TAB 0 Refills (This prescription has been renewed) Renetta Gomez July 13, 2017 17:17
== END 2017-07-12 18:45 | disposition home or self-care (01) | DRG 439 ==
LOC: PHED 20:39 → PHEDA 07-08 01:05 → PH3A 07-08 03:35
PROVIDERS: ADMIT Hospitalist; ATTEND Hospitalist
PROC: 0DB78ZX Excision of Stomach, Pylorus, Via Natural or Artificial Opening Endoscopic, Diagnostic (ICD-10-PCS; 2017-07-10)
PROC: 0DB98ZX Excision of Duodenum, Via Natural or Artificial Opening Endoscopic, Diagnostic (ICD-10-PCS; principal; 2017-07-10 07:10)
DX: K85.20 Alcohol induced acute pancreatitis without necrosis or infection (principal); D61.818 Other pancytopenia; I85.00 Esophageal varices without bleeding; F10.19 Alcohol abuse with unspecified alcohol-induced disorder; K70.30 Alcoholic cirrhosis of liver without ascites; K31.7 Polyp of stomach and duodenum; K85.10 Biliary acute pancreatitis without necrosis or infection; E03.9 Hypothyroidism, unspecified; K44.9 Diaphragmatic hernia without obstruction or gangrene; E87.6 Hypokalemia; Z88.1 Allergy status to other antibiotic agents; Z88.5 Allergy status to narcotic agent; Z88.8 Allergy status to other drugs, medicaments and biological substances; Z96.652 Presence of left artificial knee joint
CPT/HCPCS: 74177; 74181; 76377; 80048; 80053; 80076; 81001; 82948; 83036; 83690; 83735; 84155; 85025; 85610; 87086; 88305; 93005; 96361; 96374; 96375; C9113; J0696; J2060; J2405; J3480; J7030; Q0163; Q9967

== ENCOUNTER 2017-07-21 12:30 | Inpatient (IN) | payer MEDICAID ==
[~2017-07-21] VITALS: Ht 175.3 cm; Wt 84.2 kg
[~2017-07-21 12:30] MED LIST changes: -FERR325T PO; -FOLI1TAB4 PO; +FOLI1TAB6 PO; +FURO1TAB60 PO; -FURO20TA PO; +HYDR-3516 PO; -HYDR25TA5 PO; -LACT10SO PO; +SPIR50TA PO; -VITA100T2 PO
[2017-07-21 12:43] VITALS: BP 130/62
[2017-07-21 13:00] VITALS: O2SAT 98
[2017-07-21 13:10] LABS: AUTOMATED NEUTROPHIL # 3.5 TH/MM3 (1.8-7.7); BASOPHIL # 0.1 TH/MM3 (0-0.2); BASOPHIL % 1.3 % (0.0-2.0); EOSINOPHIL # 0.2 TH/MM3 (0-0.4); EOSINOPHIL % 3.1 % (0.0-4.0); HEMATOCRIT 33.2 % (35.0-46.0); HEMOGLOBIN 10.9 GM/DL (11.6-15.3); LYMPH % 23.4 % (9.0-44.0); LYMPHOCYTE # 1.3 TH/MM3 (1.0-4.8); MEAN CELL VOLUME 81.5 FL (80.0-100.0); MEAN CORPUSCULAR HEMOGLOBIN 26.8 PG (27.0-34.0); MEAN CORPUSCULAR HGB CONC 32.8 % (32.0-36.0); MEAN PLATELET VOLUME 10.5 FL (7.0-11.0); MONO % 6.8 % (0.0-8.0); MONOCYTE # 0.4 TH/MM3 (0-0.9); NEUT % 65.4 % (16.0-70.0); PLATELET COUNT 129 TH/MM3 (150-450); RED BLOOD COUNT 4.07 MIL/MM3 (4.00-5.30); RED CELL DISTRIBUTION WIDTH 20.3 % (11.6-17.2); WHITE BLOOD COUNT 5.5 TH/MM3 (4.0-11.0)
[2017-07-21 13:19] LABS: CHLORIDE 108 MEQ/L (98-107); SODIUM (NA) 141 MEQ/L (136-145)
[2017-07-21 13:23] LABS: ALBUMIN 2.9 GM/DL (3.4-5.0); BICARBONATE 26.3 MEQ/L (21.0-32.0); BLOOD UREA NITROGEN 6 MG/DL (7-18); GLUCOSE,RANDOM 124 MG/DL (74-106)
[2017-07-21 13:26] LABS: ALT (GPT) 71 U/L (10-53); AST (GOT) 109 U/L (15-37); CREATININE 0.85 MG/DL (0.50-1.00); GLOMERULAR FILTRATION RATE 71 ML/MIN (>89)
[2017-07-21 13:28] LABS: TOTAL BILIRUBIN ADULT 3.5 MG/DL (0.2-1.0); TOTAL PROTEIN 6.9 GM/DL (6.4-8.2)
[2017-07-21 13:29] LABS: ALKALINE PHOSPHATASE 116 U/L (45-117)
--- NOTE | 2017-07-21 13:31 | PD ---
HPI Chief Complaint: Abdominal Pain Time Seen by Provider: 13:17 Travel History International Travel<30 days: No Contact w/Intl Traveler<30days: No Traveled to known affect area: No History of Present Illness HPI 47yo F with PMH of alcohol abuse, HTN, hypothyroid presents to the ED with c/o epigastric, right upper abdominal pain for 2 days. Said it radiates from epigastric region to right upper abdomen to the back. Associated with nausea and vomiting today. Pt was admitted 07/08/17-07/13/17 for acute pancreatitis and had MRCP that showed gallbladder distension, sludge. Pt had elevated LFT and was seen by general surgery which recommended outpatient follow up. Pt followed up with Dr. Rico last week but there was something with the insurance and she was not able to get it done as outpatient. Pt said she ran out of narco 2 days ago and that is when the pain returned. PFSH Past Medical History Hx Anticoagulant Therapy: Yes (8 WEEKS AGO) Asthma: No Autoimmune Disease: No Anxiety: Yes Depression: No Heart Rhythm Problems: No Cancer: No Cardiovascular Problems: Yes High Cholesterol: No Chest Pain: Yes Congestive Heart Failure: No COPD: No Cerebrovascular Accident: No Diabetes: No Diminished Hearing: No Genitourinary: No Headaches: Yes Hypertension: Yes Immune Disorder: No Musculoskeletal: Yes Neurologic: Yes Psychiatric: Yes Reproductive: No Respiratory: Yes (history of nosebleeds) Immunizations Current: Yes Migraines: Yes Pancreatitis: Yes Seizures: No Sleep Apnea: No Thyroid Disease: Yes (Hypothyroidism) Tetanus Vaccination: > 5 Years Influenza Vaccination: No ?: Not LMP: 07/10/17 : 5 Para: 3 Miscarriage: 2 Past Surgical History Abdominal Surgery: No Body Medical Devices: 2 screws in her knee from acl surgery. Cardiac Surgery: No Ear Surgery: No Endocrine Surgery: No Eye Surgery: Yes (Lasik) Genitourinary Surgery: No Gynecologic Surgery: No Oral Surgery: No Thoracic Surgery: No Other Surgery: Yes (lt knee replacement) Social History Alcohol Use: Yes (2 GLASSES RED WINE A DAY) Tobacco Use: No Substance Use: No Allergies-Medications (Allergen,Severity, Reaction): Coded Allergies: acetaminophen (Unverified Allergy, Severe, 07/21/17) HIVES codeine (Unverified Allergy, Severe, 07/21/17) RASH propoxyphene (Unverified Allergy, Severe, 07/21/17) HIVES clarithromycin (Unverified Allergy, Intermediate, VOMITING, 07/21/17) morphine (Unverified Allergy, Unknown, HALUCINATIONS, 07/21/17) Reported Meds & Prescriptions Reported Meds & Active Scripts Active Hydrocodone-Acetamin 5-325 mg (Hydrocodone/Acetaminophen) 5 Mg-325 Mg Tablet 1 Tab PO Q4H PRN Lasix (Furosemide) 40 Mg Tab 40 Mg PO DAILY Metoprolol Tartrate 25 Mg Tab 25 Mg PO DAILY Spironolactone 50 Mg Tab 50 Mg PO DAILY Folic Acid 1 Mg Tablet 1 Mg PO DAILY Potassium Chloride ER (Potassium Chloride) 10 Meq Cap 10 Meq PO DAILY Pantoprazole (Pantoprazole Sodium) 40 Mg Tab 40 Mg PO DAILY Levothyroxine (Levothyroxine Sodium) 112 Mcg Tab 1 Tab PO DAILY Review of Systems Except as stated in HPI: all other systems reviewed are Neg Physical Exam Narrative GENERAL: 47yo F in mild distress. SKIN: Focused skin assessment warm/dry. HEAD: Atraumatic. Normocephalic. EYES: Pupils equal and round. No scleral icterus. No injection or drainage. ENT: No nasal bleeding or discharge. Mucous membranes pink and moist. NECK: Trachea midline. No JVD. CARDIOVASCULAR: Regular rate and rhythm. No murmur appreciated. RESPIRATORY: No accessory muscle use. Clear to auscultation. Breath sounds equal bilaterally. GASTROINTESTINAL: Abdomen soft, +TTP epigastric and RUQ. +Ovid sign. No rebound tenderness or guarding. MUSCULOSKELETAL: No obvious deformities. No clubbing. No cyanosis. No edema. NEUROLOGICAL: Awake and alert. No obvious cranial nerve deficits. Motor grossly within normal limits. Normal speech. PSYCHIATRIC: Appropriate mood and affect; insight and judgment normal. Data Data Last Documented VS Vital Signs Date Time Temp Pulse Resp B/P (MAP) Pulse Ox O2 Delivery O2 Flow Rate FiO2 07/21/17 14:46 72 16 111/68 (82) 99 Room Air Orders Orders Complete Blood Count With Diff (07/21/17 12:48) Comprehensive Metabolic Panel (07/21/17 12:48) Urinalysis - C+S If Indicated (07/21/17 12:48) Iv Access Insert/Monitor (07/21/17 12:48) Oxygen Administration (07/21/17 12:48) Oximetry (07/21/17 12:48) Lipase (07/21/17 12:48) Us Abdomen Gallbladder (07/21/17 ) Ondansetron Odt (Zofran Odt) (07/21/17 13:45) Place In Observation (07/21/17 ) Vital Signs (Adult) Q4H (07/21/17 14:41) Activity Oob Ad Giovana (07/21/17 14:41) Intake + Output MARK.QSHIFT (07/21/17 14:41) Diet Npo (07/21/17 Dinner) Sodium Chlor 0.9% 1000 Ml Inj (Ns 1000 M (07/21/17 14:41) Sodium Chloride 0.9% Flush (Ns Flush) (07/21/17 14:45) Sodium Chloride 0.9% Flush (Ns Flush) (07/21/17 21:00) Piperacil-Tazo 4.5 Gm Premix (Zosyn 4.5 (07/21/17 14:45) Metoclopramide Inj (Reglan Inj) (07/21/17 14:45) Ketorolac Inj (Toradol Inj) (07/21/17 14:45) Consult General Surgery (07/21/17 ) Morphine Inj (Morphine Inj) (07/21/17 15:00) Admit Order (Ed Use Only) (07/21/17 14:47) Labs Laboratory Tests Test 07/21/17 13:00 07/21/17 13:25 White Blood Count 5.5 TH/MM3 Red Blood Count 4.07 MIL/MM3 Hemoglobin 10.9 GM/DL Hematocrit 33.2 % Mean Corpuscular Volume 81.5 FL Mean Corpuscular Hemoglobin 26.8 PG Mean Corpuscular Hemoglobin Concent 32.8 % Red Cell Distribution Width 20.3 % Platelet Count 129 TH/MM3 Mean Platelet Volume 10.5 FL Neutrophils (%) (Auto) 65.4 % Lymphocytes (%) (Auto) 23.4 % Monocytes (%) (Auto) 6.8 % Eosinophils (%) (Auto) 3.1 % Basophils (%) (Auto) 1.3 % Neutrophils # (Auto) 3.5 TH/MM3 Lymphocytes # (Auto) 1.3 TH/MM3 Monocytes # (Auto) 0.4 TH/MM3 Eosinophils # (Auto) 0.2 TH/MM3 Basophils # (Auto) 0.1 TH/MM3 CBC Comment DIFF FINAL Differential Comment Blood Urea Nitrogen 6 MG/DL Creatinine 0.85 MG/DL Random Glucose 124 MG/DL Total Protein 6.9 GM/DL Albumin 2.9 GM/DL Calcium Level 8.0 MG/DL Alkaline Phosphatase 116 U/L Aspartate Amino Transf (AST/SGOT) 109 U/L Alanine Aminotransferase (ALT/SGPT) 71 U/L Total Bilirubin 3.5 MG/DL Sodium Level 141 MEQ/L Potassium Level 3.7 MEQ/L Chloride Level 108 MEQ/L Carbon Dioxide Level 26.3 MEQ/L Anion Gap 7 MEQ/L Estimat Glomerular Filtration Rate 71 ML/MIN Lipase 789 U/L Urine Color YELLOW Urine Turbidity CLEAR Urine pH 7.0 Urine Specific [place] 1.010 Urine Protein NEG mg/dL Urine Glucose (UA) NEG mg/dL Urine Ketones NEG mg/dL Urine Occult Blood NEG Urine Nitrite NEG Urine Bilirubin NEG Urine Urobilinogen 0.2 MG/DL Urine Leukocyte Esterase NEG Urine WBC 0-2 /hpf Urine Squamous Epithelial Cells 0-5 /hpf Urine Transitional Epithelial Cells 0-5 /hpf Urine Bacteria FEW /hpf Microscopic Urinalysis Comment CULT NOT INDICATED MDM Medical Decision Making Medical Screen Exam Complete: Yes Emergency Medical Condition: Yes Differential Diagnosis Acute cholecystitis vs. pancreatitis vs. gastritis Narrative Course 47yo F with right upper abdominal pain for 2 days. Pt given zofran which relieved her nausea. Labs reviewed, no leukocytosis. H/H low but improved from baseline. Liver enzymes elevated but trending down. Lipase elevated but trending down. UA negative. US gallbladder showed multiple gallstones with minimal gallbladder wall thickening. Discussed with general surgeon Dr. Rico who would is requesting to have pt transfer to [facility] and he is going to try to do cholecystectomy tonight. Keep pt NPO. Discussed with Dr. Shay who accepted the patient. Diagnosis Primary Impression: Acute cholecystitis Admitting Information Admitting Physician Requests: Admit Stephy Ferrari DO July 21, 2017 13:31
[2017-07-21 13:43] LABS: BILIRUBIN, URINE NEG (NEG); BLOOD, URINE NEG (NEG); GLUCOSE,URINE NEG (NEG); KETONE, URINE NEG (NEG); NITRITE,URINE NEG (NEG); URINE COLOR YELLOW (YELLW/STRAW); URINE LEUKOCYTE ESTERASE NEG (NEG)
[2017-07-21] MEDS ORDERED: ONDANSETRON ODT 4 MG TAB PO ONE (13:45)
[2017-07-21 13:50] LABS: BACTERIA, URINE FEW /hpf; SQUAMOUS EPITHELIAL CELL URINE 0-5 /hpf (0-5); TRANSITIONAL EPI CELLS, URINE 0-5 /hpf; WBC, URINE 0-2 /hpf (0-5)
--- NOTE | 2017-07-21 14:15 | RADRPT ---
EXAM DATE/TIME: 07/21/2017 13:44 [place] COMPARISON: No previous studies available for comparison. EXTERNAL COMPARISON : [facility], US ABDOMEN LIVER, December 05, 2016 INDICATIONS : Right upper quadrant pain. MEDICAL HISTORY : Hypothyroidism. Pancreatitis. Hypertension. Cataracts. Migraines. Chest pain. Anxiety. Anticoagulant therapy. SURGICAL HISTORY : Lasik surgery. ACL surgery with pins. Left knee replacement. ENCOUNTER: Initial ACUITY: 3 days PAIN SCORE: 7/10 LOCATION: Right upper quadrant MEASUREMENTS: LIVER: 13.6 cm length COMMON DUCT: 5 mm RIGHT KIDNEY: 12.3 x 5.3 x 3.7 cm FINDINGS: LIVER: Moderate fatty replacement described cyst not visualized COMMON DUCT: No intraluminal mass or stone visualized. GALLBLADDER: Multiple gallstones and thickened gallbladder wall. No pain to palpation PANCREAS: The visualized portions are within normal limits. RIGHT KIDNEY: No evidence of hydronephrosis, stone, or mass. CONCLUSION: Multiple gallstones with minimal gallbladder wall thickening. Tj Espinoza MD FACR on July 21, 2017 at 14:11 Board Certified Radiologist. This report was verified electronically.
[2017-07-21 14:46] VITALS: BP 111/68; PULSE 72; RESP 16; O2SAT 99
[2017-07-21] MEDS ORDERED: MORPHINE SULFATE 2 MG/ML SYRINGE IV PUSH ONE (15:00)
[2017-07-21] MEDS ORDERED: PIPERACIL-TAZO 4.5 GM PREMIX 100 ML IV SCH (15:00)
[2017-07-21] MEDS: SODIUM CHLOR 0.9% 1000 ML INJ 1,000 ML IV SCH ×2 (15:02→21:06)
[2017-07-21] MEDS: METOCLOPRAMIDE HCL 10 MG/2 ML VIAL IV PUSH PRN (15:03)
[2017-07-21] MEDS: KETOROLAC TROMETHAMINE 30 MG/ML (IVP) VIAL IV PUSH PRN ×2 (15:03→20:56)
[2017-07-21 16:13] VITALS: BP 102/71
[2017-07-21 16:47] VITALS: BP 104/59; PULSE 55; RESP 17; TEMP 97.9; O2SAT 99
--- NOTE | 2017-07-21 17:22 | PD.CONS ---
cc: Junior Rico MD [facility] Service CONSULTATION NOTE FOR SURGICAL ATTENDING, DR. JUNIOR RICO General Surgery Consult Requested By Dr. Ferrari Reason for Consult Gallbladder dysfunction Primary Care Physician Oren Arceo D.O. History of Present Illness This is a 47 year old female with a past medical history of alcoholism in the past who was just admitted earlier this month with abdominal pain and elevated liver enzymes. The patient had a full workup then which included EGD and an MRCP which did not show any common duct stones but a distended gallbladder with stones. The patient's liver enzymes improved and the patient was to follow up with Dr. Rico for discussion about elective laparoscopic cholecystectomy. The patient returns to the ED with a two day history of midepigastric, RUQ and RIGHT shoulder pain. This is associated with nausea and vomiting. A gallbladder ultrasound was obtained which shows gallstones with minimal gallbladder wall thickening. She does have elevated liver enzymes. A General Surgery consultation has been requested for evaluation of laparoscopic cholecystectomy. Review of Systems Constitutional: DENIES: Fatigue, Weight loss, Change in appetite Endocrine: DENIES: Polydipsia, Polyuria, Polyphagia Eyes: DENIES: Diplopia, Eye inflammation Ears, nose, mouth, throat: DENIES: Hearing loss Respiratory: DENIES: Apneas, Sputum production Cardiovascular: DENIES: Chest pain Gastrointestinal: COMPLAINS OF: Abdominal pain, Nausea, Vomiting Genitourinary: DENIES: Urinary frequency Musculoskeletal: DENIES: Joint pain Integumentary: DENIES: Abnormal pigmentation Hematologic/lymphatic: DENIES: Bruising Immunologic/allergic: DENIES: Eczema Neurologic: DENIES: Abnormal gait, Headache Psychiatric: DENIES: Mood changes, Depression, Hallucinations Past Family Social History Past Medical History Liver dysfunction Hypertension Anxiety Past Surgical History LEFT knee surgery Lasix eye surgery Reported Medications Metoprolol Spironolactone [place] Potassium Lasix Protonix Levothyroxine Folic acid Allergies: Coded Allergies: acetaminophen (Unverified Allergy, Severe, 07/21/17) HIVES codeine (Unverified Allergy, Severe, 07/21/17) RASH propoxyphene (Unverified Allergy, Severe, 07/21/17) HIVES clarithromycin (Unverified Allergy, Intermediate, VOMITING, 07/21/17) morphine (Unverified Allergy, Unknown, HALUCINATIONS, 07/21/17) Active Ordered Medications Current Medications Medications (Trade) Dose Ordered Sig/Miya Route Start Time Stop Time Status Last Admin Sodium Chloride 1,000 ml @ 100 mls/hr Q10H IV 07/21/17 14:41 07/21/17 15:02 (NS Flush) 2 ml UNSCH PRN IV FLUSH 07/21/17 14:45 (NS Flush) 2 ml BID IV FLUSH 07/21/17 21:00 Piperacillin Sod/ Tazobactam Sod 100 ml @ 200 mls/hr Q6H IV 07/21/17 15:00 07/21/17 15:03 (Reglan Inj) 10 mg Q6H PRN IV PUSH 07/21/17 14:45 07/21/17 15:03 (Toradol Inj) 15 mg Q6H PRN IV PUSH 07/21/17 14:45 07/26/17 14:44 07/21/17 15:03 Family History Noncontributory Social History Denies tobacco use Past ETOH use; none since last admission Denies illicit drug use Patient is a [facility]; she will NOT receive blood transition. Physical Exam Vital Signs Vital Signs Date Time Temp Pulse Resp B/P (MAP) Pulse Ox O2 Delivery O2 Flow Rate FiO2 07/21/17 16:13 68 18 102/71 (81) 98 07/21/17 14:46 72 16 111/68 (82) 99 Room Air 07/21/17 13:00 98 Room Air 07/21/17 13:00 98 Room Air 07/21/17 12:43 130/62 (84) Physical Exam GENERAL: Very pleasant 47 year old female resting in bed in no acute distress. SKIN: Warm and dry. HEAD: Atraumatic. Normocephalic. EYES: Pupils equal and round. No scleral icterus. No injection or drainage. ENT: No nasal bleeding or discharge. Mucous membranes pink and moist. NECK: Trachea midline. . CARDIOVASCULAR: Regular rate and rhythm. RESPIRATORY: No accessory muscle use. Clear to auscultation. Breath sounds equal bilaterally. GASTROINTESTINAL: Abdomen soft, nondistended. Mild RUQ tenderness with palpation. MUSCULOSKELETAL: Extremities without clubbing, cyanosis, or edema. No obvious deformities. NEUROLOGICAL: Awake and alert. No obvious cranial nerve deficits. Motor grossly within normal limits. Five out of 5 muscle strength in the arms and legs. Normal speech. PSYCHIATRIC: Appropriate mood and affect; insight and judgment normal. Laboratory Laboratory Tests Test 07/21/17 13:00 07/21/17 13:25 White Blood Count 5.5 Red Blood Count 4.07 Hemoglobin 10.9 Hematocrit 33.2 Mean Corpuscular Volume 81.5 Mean Corpuscular Hemoglobin 26.8 Mean Corpuscular Hemoglobin Concent 32.8 Red Cell Distribution Width 20.3 Platelet Count 129 Mean Platelet Volume 10.5 Neutrophils (%) (Auto) 65.4 Lymphocytes (%) (Auto) 23.4 Monocytes (%) (Auto) 6.8 Eosinophils (%) (Auto) 3.1 Basophils (%) (Auto) 1.3 Neutrophils # (Auto) 3.5 Lymphocytes # (Auto) 1.3 Monocytes # (Auto) 0.4 Eosinophils # (Auto) 0.2 Basophils # (Auto) 0.1 CBC Comment DIFF FINAL Differential Comment Blood Urea Nitrogen 6 Creatinine 0.85 Random Glucose 124 Total Protein 6.9 Albumin 2.9 Calcium Level 8.0 Alkaline Phosphatase 116 Aspartate Amino Transf (AST/SGOT) 109 Alanine Aminotransferase (ALT/SGPT) 71 Total Bilirubin 3.5 Sodium Level 141 Potassium Level 3.7 Chloride Level 108 Carbon Dioxide Level 26.3 Anion Gap 7 Estimat Glomerular Filtration Rate 71 Lipase 789 Urine Color YELLOW Urine Turbidity CLEAR Urine pH 7.0 Urine Specific [place] 1.010 Urine Protein NEG Urine Glucose (UA) NEG Urine Ketones NEG Urine Occult Blood NEG Urine Nitrite NEG Urine Bilirubin NEG Urine Urobilinogen 0.2 Urine Leukocyte Esterase NEG Urine WBC 0-2 Urine Squamous Epithelial Cells 0-5 Urine Transitional Epithelial Cells 0-5 Urine Bacteria FEW Microscopic Urinalysis Comment CULT NOT INDICATED Result Diagram: 07/21/17 1300 07/21/17 1300 Imaging Last 48 hours Impressions Gall Bladder Ultrasound 07/21/17 0000 Signed Impressions: Service Date/Time: Friday, July 21, 2017 13:44 - CONCLUSION: Multiple gallstones with minimal gallbladder wall thickening. Tj Espinoza MD FACR Assessment and Plan Problem List: (1) Acute cholecystitis ICD Codes: K81.0 - Acute cholecystitis Status: Acute (2) Elevated LFTs ICD Codes: R79.89 - Other specified abnormal findings of blood chemistry Status: Chronic (3) Acute pancreatitis ICD Codes: K85.90 - Acute pancreatitis without necrosis or infection, unspecified Status: Acute (4) Gallstones ICD Codes: K80.20 - Calculus of gallbladder without cholecystitis without obstruction Status: Chronic (5) Acute cholecystitis due to biliary calculus ICD Codes: K80.00 - Calculus of gallbladder with acute cholecystitis without obstruction Status: Acute (6) Esophageal varices ICD Codes: I85.00 - Esophageal varices without bleeding (7) Hypothyroidism ICD Codes: E03.9 - Hypothyroidism, unspecified Status: Chronic Assessment and Plan 47 year old female with symptomatic cholelithiasis; elevated liver enzymes -Clear liquids tonight; NPO after MN -Plan for lap diandra tomorrow -Obtain consents -Explained procedure in detail including risks -Hold anticoagulation -Labs in AM -Thank you for this consult; We will continue to follow Discussed Condition With Dr. Trisha Joe Attending Statement CONSULTATION NOTE FOR SURGICAL ATTENDING, DR. JUNIOR RICO Patient seen Had recurrent attack Repeat ultrasound shows known diagnosis of cholelithiasis with thickened gallbladder wall and laboratory data consistent with gallstone pancreatitis We will proceed with laparoscopic cholecystectomy intraoperative cholangiogram and liver biopsy I agree with above assessment and plan. The exam, history, and the medical decision-making described in the above note were completed with the assistance of the mid-level provider. I reviewed and agree with the findings presented. I attest that I had a [id number] encounter with the patient on the same day, and personally performed and documented my assessment and findings in the medical record. The following services were provided during this hospital visit: Chart data review, vital sign assessments/reviewing monitor data Review of consultations notes if present. Medication orders/review and/or management Ordering and/or reviewing lab tests Ordering and/or interpreting/reviewing x-rays and/or diagnostic studies Care of the patient and discussion of the patient with the care team Documentation time To help prompt me to consider important information that might be impacting today's encounter and assessment, Information from prior notes written by myself or my colleagues may have been "brought forward/copy and pasted" into today's note. Problem Qualifiers (1) Acute pancreatitis: Qualified Codes: K85.10 - Biliary acute pancreatitis without necrosis or infection (2) Esophageal varices: Demi Albert/First Chas OCHOA July 21, 2017 17:22 Junior Rico MD July 21, 2017 18:37
[2017-07-21] MEDS ORDERED: cefTRIAXone INJ 2,000 MG in SODIUM CHLORIDE 0.9% INJ 100 ML IV SCH (18:15)
--- NOTE | 2017-07-21 18:17 | HHI.HP ---
[facility] Oren Arceo D.O. Admission Diagnosis Acute cholecystitis Diagnoses: Chief Complaint: Abdominal pain, nausea, vomiting. Travel History International Travel<30 Days: No Contact w/Intl Traveler <30 Da: No Traveled to Known Affected Are: No History of Present Illness Ms. Joe is a pleasant 47-year-old female with a history of fatty liver, hypertension, hypothyroidism who presents to the emergency department today due to epigastric pain radiating to her back that started about 2 days prior to this admission. Patient was admitted on 07/08/2017 due to similar symptoms and was diagnosed with acute pancreatitis. Patient underwent MRCP as well as abdominal CT. Patient was discharged home with follow-up with general surgery. Tentative plan was to do surgery on 07/29/2017. Due to insurance issues, patient was not able to follow-up with general surgery in the outpatient setting. On arrival temperature 97.1 9F, pulse 72, respirations 16 , blood pressure 130/62, pulse oximetry 98% on room air. CBC BMP largely unremarkable except AST 109, ALT 71 and alk phos 116. Gallbladder ultrasound shows multiple gallstones with minimal gallbladder wall thickening. General surgery was consulted. 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 Anxiety Hypertension, hypothyroidism Past Surgical History Left knee replacement Bilateral Lasix eye surgery Reported Medications Hydrocodone-Acetamin 5-325 mg (Hydrocodone/Acetaminophen) 5 Mg-325 Mg Tablet 1 Tab PO Q4H PRN Lasix (Furosemide) 40 Mg Tab 40 Mg PO DAILY Metoprolol Tartrate 25 Mg Tab 25 Mg PO DAILY Spironolactone 50 Mg Tab 50 Mg PO DAILY Folic Acid 1 Mg Tablet 1 Mg PO DAILY Potassium Chloride ER (Potassium Chloride) 10 Meq Cap 10 Meq PO DAILY Pantoprazole (Pantoprazole Sodium) 40 Mg Tab 40 Mg PO DAILY Levothyroxine (Levothyroxine Sodium) 112 Mcg Tab 1 Tab PO DAILY Allergies: Coded Allergies: acetaminophen (Unverified Allergy, Severe, 07/21/17) HIVES codeine (Unverified Allergy, Severe, 07/21/17) RASH propoxyphene (Unverified Allergy, Severe, 07/21/17) HIVES clarithromycin (Unverified Allergy, Intermediate, VOMITING, 07/21/17) morphine (Unverified Allergy, Unknown, HALUCINATIONS, 07/21/17) Family History Denies any significant family medical history. Social History Patient reports that she quit drinking 13 months ago. Denies using tobacco or illicit drugs. Physical Exam Vital Signs Vital Signs Date Time Temp Pulse Resp B/P (MAP) Pulse Ox O2 Delivery O2 Flow Rate FiO2 07/21/17 16:47 97.9 55 17 104/59 (74) 99 07/21/17 16:13 68 18 102/71 (81) 98 07/21/17 14:46 72 16 111/68 (82) 99 Room Air 07/21/17 13:00 98 Room Air 07/21/17 13:00 98 Room Air 07/21/17 12:43 130/62 (84) Physical Exam GENERAL: This is a well-nourished, well-developed patient, in no apparent distress. SKIN: No rashes, ecchymoses or lesions. Warm and dry. HEAD: Atraumatic. Normocephalic. No temporal or scalp tenderness. EYES: Pupils equal round and reactive. No injection or drainage. ENT: Nose without bleeding, purulent drainage or septal hematoma. Airway patent. NECK: Trachea midline. No lymphadenopathy. Supple, nontender, no meningeal signs. CARDIOVASCULAR: Regular rate and rhythm without gallops, or rubs. No JVD. There is a systolic murmur best heard on the left sternal border. RESPIRATORY: Clear to auscultation. Breath sounds equal bilaterally. No wheezes , rales, or rhonchi. GASTROINTESTINAL: Abdomen soft, tender to palpation over right upper quadrant, nondistended. No guarding. MUSCULOSKELETAL: Extremities without clubbing, cyanosis, or edema. NEUROLOGICAL: Awake and alert. Cranial nerves II through XII intact. No focal neurological deficits. Normal speech. Laboratory Laboratory Tests Test 07/21/17 13:00 07/21/17 13:25 White Blood Count 5.5 Red Blood Count 4.07 Hemoglobin 10.9 Hematocrit 33.2 Mean Corpuscular Volume 81.5 Mean Corpuscular Hemoglobin 26.8 Mean Corpuscular Hemoglobin Concent 32.8 Red Cell Distribution Width 20.3 Platelet Count 129 Mean Platelet Volume 10.5 Neutrophils (%) (Auto) 65.4 Lymphocytes (%) (Auto) 23.4 Monocytes (%) (Auto) 6.8 Eosinophils (%) (Auto) 3.1 Basophils (%) (Auto) 1.3 Neutrophils # (Auto) 3.5 Lymphocytes # (Auto) 1.3 Monocytes # (Auto) 0.4 Eosinophils # (Auto) 0.2 Basophils # (Auto) 0.1 CBC Comment DIFF FINAL Differential Comment Blood Urea Nitrogen 6 Creatinine 0.85 Random Glucose 124 Total Protein 6.9 Albumin 2.9 Calcium Level 8.0 Alkaline Phosphatase 116 Aspartate Amino Transf (AST/SGOT) 109 Alanine Aminotransferase (ALT/SGPT) 71 Total Bilirubin 3.5 Sodium Level 141 Potassium Level 3.7 Chloride Level 108 Carbon Dioxide Level 26.3 Anion Gap 7 Estimat Glomerular Filtration Rate 71 Lipase 789 Urine Color YELLOW Urine Turbidity CLEAR Urine pH 7.0 Urine Specific [place] 1.010 Urine Protein NEG Urine Glucose (UA) NEG Urine Ketones NEG Urine Occult Blood NEG Urine Nitrite NEG Urine Bilirubin NEG Urine Urobilinogen 0.2 Urine Leukocyte Esterase NEG Urine WBC 0-2 Urine Squamous Epithelial Cells 0-5 Urine Transitional Epithelial Cells 0-5 Urine Bacteria FEW Microscopic Urinalysis Comment CULT NOT INDICATED Result Diagram: 07/21/17 1300 07/21/17 1300 Imaging Last Impressions Gall Bladder Ultrasound 07/21/17 0000 Signed Impressions: Service Date/Time: Friday, July 21, 2017 13:44 - CONCLUSION: Multiple gallstones with minimal gallbladder wall thickening. Tj Espinoza MD FACR Caprini VTE Risk Assessment Caprini VTE Risk Assessment: No/Low Risk (score <= 1) Caprini Risk Assessment Model Point Value = 1 Point Value = 2 Point Value = 3 Point Value = 5 Age 41-60 Minor surgery BMI > 25 kg/m2 Swollen legs Varicose veins or History of unexplained or recurrent spontaneous Oral contraceptives or hormone replacement Sepsis (< 1 month) Serious lung disease, including pneumonia (< 1 month) Abnormal pulmonary function Acute myocardial infarction Congestive heart failure (< 1 month) History of inflammatory bowel disease Medical patient at bed rest Age 61-74 Arthroscopic surgery Major open surgery (> 45 min) Laparoscopic surgery (> 45 min) Malignancy Confined to bed (> 72 hours) Immobilizing plaster cast Central venous access Age >= 75 History of VTE Family history of VTE Factor V Leiden Prothrombin [id number] Lupus anticoagulant Anticardiolipin antibodies Elevated serum homocysteine Heparin-induced thrombocytopenia Other congenital or acquired thrombophilia Stroke (< 1 month) Elective arthroplasty Hip, pelvis, or leg fracture Acute spinal cord injury (< 1 month) Prophylaxis Regimen Total Risk Factor Score Risk Level Prophylaxis Regimen 0-1 Low Early ambulation 2 Moderate Order ONE of the following: *Sequential Compression Device (SCD) *Heparin 5000 units SQ BID 3-4 Higher Order ONE of the following medications: *Heparin 5000 units SQ TID *Enoxaparin/Lovenox 40 mg SQ daily (WT < 150 kg, CrCl > 30 mL/min) *Enoxaparin/Lovenox 30 mg SQ daily (WT < 150 kg, CrCl > 10-29 mL/min) *Enoxaparin/Lovenox 30 mg SQ BID (WT < 150 kg, CrCl > 30 mL/min) AND/OR *Sequential Compression Device (SCD) 5 or more Highest Order ONE of the following medications: *Heparin 5000 units SQ TID (Preferred with Epidurals) *Enoxaparin/Lovenox 40 mg SQ daily (WT < 150 kg, CrCl > 30 mL/min) *Enoxaparin/Lovenox 30 mg SQ daily (WT < 150 kg, CrCl > 10-29 mL/min) *Enoxaparin/Lovenox 30 mg SQ BID (WT < 150 kg, CrCl > 30 mL/min) AND *Sequential Compression Device (SCD) Assessment and Plan Problem List: (1) Acute cholecystitis ICD Code: K81.0 - Acute cholecystitis Status: Acute (2) Hypothyroidism ICD Code: E03.9 - Hypothyroidism, unspecified Status: Acute (3) Hypertension ICD Code: I10 - Essential (primary) hypertension Status: Acute Assessment and Plan Ms. Joe is a pleasant 47-year-old female with a history of recent episode of acute pancreatitis who presents to the emergency department due to epigastric abdominal pain radiating to her back, nausea and vomiting. Gallbladder ultrasound during this admission shows multiple gallstones with minimal gallbladder wall thickening. Acute cholecystitis -GB US shows gallstones and wall thickening. -General surgery following. -Likely Lap Rach in the AM. -D/C Zosyn and start Ceftriaxone 2g Qday. No abx needed after surgery. -Continue normal saline 100 cc/h. 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 -After surgery patient can continue Lasix and spironolactone. Consider discontinuing supplemental potassium. -Currently patient's blood pressure is somewhat low in the 100 range systolic. Full code. Ambulation. Iqra Valdez DO July 21, 2017 6:17 pm
[2017-07-21 20:54] VITALS: BP 109/68; PULSE 57; RESP 18; O2SAT 99
[2017-07-21] MEDS: SODIUM CHLORIDE 0.9% FLUSH 10 ML FLUSH IV FLUSH SCH (20:56)
[2017-07-21] MEDS ORDERED: ACETAMINOPHEN/HYDROcodone 325 MG/10 MG TAB PO ONE (23:00)
[2017-07-22] VITALS (7 sets, daily range): BP systolic 104–128; BP diastolic 58–70; PULSE 59–82; RESP 16–20; TEMP 97.2–98.1; O2SAT 92–98
[2017-07-22] MEDS: KETOROLAC TROMETHAMINE 30 MG/ML (IVP) VIAL IV PUSH PRN ×3 (03:47→21:38)
[2017-07-22] MEDS: SODIUM CHLORIDE 0.9% FLUSH 10 ML FLUSH IV FLUSH PRN (03:48)
[2017-07-22] MEDS: LEVOTHYROXINE SODIUM 112 MCG TAB PO SCH (06:05)
[2017-07-22] MEDS ORDERED: SODIUM CHLORID 0.9% 500 ML IV PRN (06:15)
[2017-07-22] MEDS ORDERED: LACTATED RINGER'S 1000 ML IV PRN (06:15)
[2017-07-22] MEDS ORDERED: INSULIN HUMAN REGULAR 1,000 UNITS/10 ML VIAL SQ PRN (06:15)
[2017-07-22] MEDS ORDERED: METOPROLOL TARTRATE 25 MG TAB PO PRN (06:15)
[2017-07-22] MEDS ORDERED: CHLORHEXIDINE GLUCONATE 2 % 1 PACK (2 CLOTHS) TOPICAL PRN (06:15)
[2017-07-22] MEDS ORDERED: POVIDONE IODINE 5% (ANTISEPSIS KIT) 4 APPLICATIONS EACH NARE PRN (06:15)
[2017-07-22 06:30] LABS: INTERNATIONAL NORMALIZED RATIO 1.6 RATIO; PROTHROMBIN TIME - PATIENT 16.2 SEC (9.8-11.6)
[2017-07-22 08:17] LABS: ALBUMIN 2.3 GM/DL (3.4-5.0); BICARBONATE 23.8 MEQ/L (21.0-32.0); CALCIUM 7.4 MG/DL (8.5-10.1); CALCIUM-PROTEIN CORRECTED 8.2 MG/DL (8.5-10.1); CREATININE 0.96 MG/DL (0.50-1.00); TOTAL BILIRUBIN ADULT 2.9 MG/DL (0.2-1.0); TOTAL PROTEIN 5.6 GM/DL (6.4-8.2)
[2017-07-22] MEDS: FOLIC ACID 1 MG TAB PO SCH (08:35)
[2017-07-22] MEDS: SODIUM CHLORIDE 0.9% FLUSH 10 ML FLUSH IV FLUSH SCH ×2 (08:35→21:00)
[2017-07-22] MEDS ORDERED: ACETAMINOPHEN 1000 MG/100 ML 100 ML IV ONE (10:29)
[2017-07-22] MEDS ORDERED: HYDROmorphone HCL PF 2 MG/ML VIAL ONE (10:29)
[2017-07-22] MEDS ORDERED: BUPIVACAINE/EPINEPHRINE 0.25% PF 10 ML VIAL INFIL ONE (10:48)
[2017-07-22] MEDS ORDERED: IOHEXOL 350 MG/ML 50 ML BTL (for RAD DIAG) OTHER ONE (10:52)
--- NOTE | 2017-07-22 11:43 | HHI.PR ---
cc: Junior Rico MD Immediate Post Op Note Procedure Date: July 22, 2017 Pre Op Diagnosis: (1) Acute cholecystitis (2) Acute pancreatitis (3) Esophageal varices (4) Gallstones (5) Elevated LFTs (6) Acute cholecystitis due to biliary calculus Post Op Diagnosis: (1) S/P laparoscopic cholecystectomy (2) Acute pancreatitis (3) Acute cholecystitis (4) Esophageal varices (5) Gallstones (6) Elevated LFTs Surgeon: Junior Rico Concaver(s): Please refer to OR records Procedure: Please refer to OR records Findings: Ascites Cirrhosis Inflamed gallbladder acutely and chronically Normal intraoperative cholangiogram Normal appendix Specimen(s) removed: Gallbladder Anesthesia: General Drains: None IVF Patient to: PACU Patient Condition: Good Implant/Devices: SEE IMPLANT LOG (if applicable) Date/Time of Procedure: SEE SURGICAL CARE RECORD Junior Rico MD July 22, 2017 11:43
[2017-07-22] MEDS ORDERED: MIDAZOLAM HCL 2 MG/2 ML VIAL ONE (11:51)
[2017-07-22] MEDS ORDERED: *ONDANSETRON 4 MG VIAL PERIprocedural Use ONLY ONE (11:59)
[2017-07-22] MEDS ORDERED: GLYCOPYRROLATE 1 MG/5 ML SYRINGE IV PUSH ONE (12:00)
[2017-07-22] MEDS ORDERED: DEXAMETHASONE SOD PHOS 4 MG/ML VIAL IV ONE (12:00)
[2017-07-22] MEDS ORDERED: LIDOCAINE HCL 1% PF 5 ML SYRINGE OTHER ONE (12:00)
[2017-07-22] MEDS ORDERED: NEOSTIGMINE 5 MG/5 ML SYRINGE IV PUSH ONE (12:00)
[2017-07-22] MEDS ORDERED: PROPOFOL 200 MG/20 ML AMP IV ONE (12:00)
[2017-07-22] MEDS ORDERED: ONDANSETRON HCL 4 MG/2 ML VIAL IV ONE (12:00)
[2017-07-22] MEDS ORDERED: ROCURONIUM INJ 50 MG/5 ML SYRINGE IV PUSH ONE (12:00)
[2017-07-22] MEDS ORDERED: LACTATED RINGER'S 1000 ML INJ 1,000 ML IV ONE (12:00)
[2017-07-22] MEDS ORDERED: *MEPERIDINE 25 MG INJ VIAL PERIprocedural Use ONLY ONE (12:03)
[2017-07-22] MEDS ORDERED: *RESP: ALBUTEROL 2.5 MG/3 ML NEB (PRN) PERIprocedural Use ONLY NEB ONE (12:11)
--- NOTE | 2017-07-22 12:17 | MP ---
cc: Junior Rico MD, DATE OF OPERATION: DATE OF PROCEDURE: 07/22/2017. PREOPERATIVE DIAGNOSIS: Cholelithiasis, cholecystitis, history of gallstone pancreatitis with elevated liver enzymes, with cirrhosis. POSTOPERATIVE DIAGNOSIS: Cholelithiasis, cholecystitis, history of gallstone pancreatitis with elevated liver enzymes, with cirrhosis. PROCEDURE PERFORMED: 1. Laparoscopic cholecystectomy. 2. Laparoscopic intraoperative cholangiogram. 3. Laparoscopic liver biopsy. ANESTHESIA: General. SURGEON: Dr. Rico. INDICATIONS FOR PROCEDURE: This is a pleasant 47-year-old female who has had a few bouts of gallstone pancreatitis. She is known to have a little bit of cirrhosis of her liver from previous drinking that she has not done in about 13 months. She had a few episodes, which was attempted to be treated as an outpatient. Her liver enzymes normalized, but then she had repeated attacks. Plans were made for above. She has also seen her medical center representative, Dr. Esposito, who the patient tells me would like a liver biopsy because of her persistent elevated liver enzymes. PROCEDURE: The patient was taken to the operating room and placed in the supine position. After anesthesia, her abdomen was prepped with Betadine. She was given preoperative antibiotics. A timeout was done. First, we make an incision just below the umbilicus. We entered the abdomen directly with the cutdown technique, placed the 10 mm port site in to the umbilicus port. Camera was introduced. We then placed 3 other working ports 5 mm below the xiphoid, 5 mm in between 2 previously placed ports and a third working port in the right upper quadrant. Gallbladder can be seen. Esophagus edematous and inflamed and had signs of chronic inflammation. I was able to grasp the superior vein laterally, is somewhat friable and it does leak bile. We were able to identify the cystic duct and cystic artery. The cystic artery is doubly ligated. Cystic duct was identified and a small martin is made into the cystic duct. We then performed a cholangiogram by placing the Cook catheter through the small martin in the cystic duct and advancing it. We then gently placed a clip to hold it in place. The C-arm was brought in position and a cholangiogram was shot with 50% of the contrast solution. Showing clear visualization of the duodenum and the right and left biliary drain ducts. The cholangiogram catheter was then removed. The gallbladder was then teased off the gallbladder bed, placed in EndoCatch and pulled out through the umbilical incision and passed off the field. It is noted she did have some small stones present. Hemostasis assured. It is noted that the liver is consistent with cirrhosis. We then do a liver biopsy of the right lobe of the liver, achieving hemostasis with an electrocautery device. No other gross abnormality seen. The appendix was seen and looks completely normal. She does have some ascites, which is removed as well. We then remove all the irrigating solution and the ascites. We removed the port trocars. The umbilical port was closed at the fascial layer with 0 Vicryl. The skin was closed with 4-0 Vicryl. Steri-Strips applied, sterile bandage was applied. The patient tolerated the procedure well. COMPLICATIONS: No immediate postop complication. Junior Rico MD JDB/TL , 11:40 AM , 12:16 PM
[2017-07-22] MEDS ORDERED: *HYDROmorphone PF 0.5 MG/0.5 ML PERIprocedure ONLY ONE (12:21)
[2017-07-22] MEDS ORDERED: DO NOT ADM ANY ANTICOAGULANT DRUGS PRN (13:00)
[2017-07-22] MEDS: SODIUM CHLOR 0.9% 1000 ML INJ 1,000 ML IV SCH ×2 (13:00→21:41)
--- NOTE | 2017-07-22 13:03 | HHI.PR ---
Subjective Remarks Patient seen postop. Complained of nausea and waves of anxiety. Objective Vitals Vital Signs Date Time Temp Pulse Resp B/P (MAP) Pulse Ox O2 Delivery O2 Flow Rate FiO2 07/22/17 07:40 97.9 59 18 105/59 (74) 95 07/22/17 04:00 Room Air 07/22/17 04:00 97.8 63 16 111/58 (75) 97 07/22/17 00:00 97.2 63 16 104/60 (75) 98 07/21/17 20:54 57 18 109/68 (82) 99 07/21/17 20:00 Room Air 07/21/17 18:38 Room Air 07/21/17 16:47 97.9 55 17 104/59 (74) 99 07/21/17 16:13 68 18 102/71 (81) 98 07/21/17 14:46 72 16 111/68 (82) 99 Room Air I/O 07/21/17 07/21/17 07/21/17 07/22/17 07/22/17 07/22/17 07:00 15:00 23:00 07:00 15:00 23:00 Intake Total 340 ml 620 ml 1400 ml Output Total 25 ml Balance 340 ml 620 ml 1375 ml Intake Oral 240 ml 620 ml IV Total 100 ml Other 1400 ml Estimated Blood Loss 25 ml # Voids 2 2 # Bowel Movements 1 Result Diagram: 07/21/17 1300 07/22/17 0455 Objective Remarks GENERAL: This is a well-nourished, well-developed patient, in no apparent distress. CARDIOVASCULAR: Regular rate and rhythm without murmurs, gallops, or rubs. RESPIRATORY: Clear to auscultation. Breath sounds equal bilaterally. No wheezes , rales, or rhonchi. GASTROINTESTINAL: Abdomen soft, Incision sites clean. non-tender, nondistended. Normal active bowel sounds MUSCULOSKELETAL: Extremities without clubbing, cyanosis, or edema. NEURO: Alert & Oriented x4 to person, place, time, situation. Moves all ext x4 A/P Problem List: (1) Acute cholecystitis ICD Code: K81.0 - Acute cholecystitis Status: Acute (2) Hypothyroidism ICD Code: E03.9 - Hypothyroidism, unspecified Status: Chronic (3) Hypertension ICD Code: I10 - Essential (primary) hypertension Status: Acute (4) Anxiety ICD Code: F41.9 - Anxiety disorder, unspecified (5) S/P laparoscopic cholecystectomy ICD Code: Z90.49 - Acquired absence of other specified parts of digestive tract (6) Ascites ICD Code: R18.8 - Other ascites (7) Acute pancreatitis ICD Code: K85.90 - Acute pancreatitis without necrosis or infection, unspecified Status: Acute Assessment and Plan 47-year-old female with a history of recent episode of acute pancreatitis who presents to the emergency department due to epigastric abdominal pain radiating to her back, nausea and vomiting. Gallbladder ultrasound during this admission shows multiple gallstones with minimal gallbladder wall thickening. Acute cholecystitis -GB US shows gallstones and wall thickening. -General surgery following. S/P laparoscopic cholecystectomy - On perioperative antibiotics. Should not need antibiotics after the course of perioperative antibiotics. Follow clinically - Advance to low fat diet - Antiemetics as needed. 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 -Can continue Lasix and spironolactone. -Liver biopsy pending Anxiety: Ativan as needed. Full code. Ambulation. Discharge Planning Probable discharge tomorrow if ok with surgery and nausea is controlled. Need outpatient follow up for liver biopsy results. Problem Qualifiers (1) Acute pancreatitis: Qualified Codes: K85.10 - Biliary acute pancreatitis without necrosis or infection Missy Hsu MD July 22, 2017 13:03
[2017-07-22] MEDS: METOCLOPRAMIDE HCL 10 MG/2 ML VIAL IV PUSH PRN (13:29)
--- NOTE | 2017-07-22 13:57 | RADRPT ---
EXAM DATE/TIME: 07/22/2017 10:21 [place] COMPARISON: US ABDOMEN - GALLBLADDER, July 21, 2017, 13:44. MRCP W/O CONTRAST, July 10, 2017, 9:47. INDICATIONS : Obstruction FLUORO TIME: 0.2 minutes IMAGE COUNT: 1 MEDICAL HISTORY : None. SURGICAL HISTORY : None. ENCOUNTER: Initial ACUITY: 1 day PAIN SCORE: Non-responsive. LOCATION: Bilateral Abdomen PROCEDURE: CHOLANGIOGRAM, OPERATIVE 1. Intraoperative cholangiogram. In the operating room, the cystic duct stump was injected and radiographs obtained. The examination demonstrates contrast within the proximal intrahepatic biliary tree, common bile duct , cystic duct remnant, and pancreatic duct. No obvious intraluminal filling defects are identified. CONCLUSION: No evidence of common duct stone. Michael Callahan MD on July 22, 2017 at 13:53 Board Certified Radiologist. This report was verified electronically.
[2017-07-22] MEDS: LORazepam 0.5 MG TAB PO PRN (16:05)
[2017-07-23] VITALS (8 sets, daily range): BP systolic 107–121; BP diastolic 54–64; PULSE 61–74; RESP 16–18; TEMP 98.2–98.5; O2SAT 96–98
[2017-07-23] MEDS: LORazepam 0.5 MG TAB PO PRN ×3 (00:06→16:35)
[2017-07-23] MEDS: KETOROLAC TROMETHAMINE 30 MG/ML (IVP) VIAL IV PUSH PRN ×2 (03:09→10:01)
[2017-07-23] MEDS: LEVOTHYROXINE SODIUM 112 MCG TAB PO SCH (06:21)
[2017-07-23] MEDS: SODIUM CHLOR 0.9% 1000 ML INJ 1,000 ML IV SCH (06:29)
[2017-07-23] MEDS: FOLIC ACID 1 MG TAB PO SCH (08:16)
[2017-07-23] MEDS: FUROSEMIDE 40 MG TAB PO SCH (08:16)
[2017-07-23] MEDS: PANTOPRAZOLE SOD 40 MG DELAYED RELEASE TAB PO SCH (08:16)
[2017-07-23] MEDS: SPIRONOLACTONE 50 MG TAB PO SCH (08:16)
[2017-07-23] MEDS: SODIUM CHLORIDE 0.9% FLUSH 10 ML FLUSH IV FLUSH SCH ×2 (08:17→20:49)
[2017-07-23] MEDS: POTASSIUM CHLORIDE 10 MEQ CAP PO SCH (08:17)
[2017-07-23 08:44] LABS: HEMATOCRIT 27.4 % (35.0-46.0); HEMOGLOBIN 8.8 GM/DL (11.6-15.3); MEAN CELL VOLUME 82.2 FL (80.0-100.0); MEAN CORPUSCULAR HEMOGLOBIN 26.2 PG (27.0-34.0); MEAN CORPUSCULAR HGB CONC 31.9 % (32.0-36.0); MEAN PLATELET VOLUME 8.9 FL (7.0-11.0); PLATELET COUNT 81 TH/MM3 (150-450); RED BLOOD COUNT 3.34 MIL/MM3 (4.00-5.30); RED CELL DISTRIBUTION WIDTH 20.2 % (11.6-17.2); WHITE BLOOD COUNT 9.9 TH/MM3 (4.0-11.0)
[2017-07-23 09:11] LABS: ALBUMIN 2.4 GM/DL (3.4-5.0); BICARBONATE 22.7 MEQ/L (21.0-32.0); CALCIUM 7.7 MG/DL (8.5-10.1); CREATININE 0.9 MG/DL (0.50-1.00)
[2017-07-23 09:13] LABS: DIRECT BILIRUBIN ADULT 1.3 MG/DL (0.0-0.2)
[2017-07-23 09:15] LABS: INDIRECT BILIRUBIN 0.8 MG/DL (0.0-0.8); TOTAL BILIRUBIN ADULT 2.1 MG/DL (0.2-1.0); TOTAL PROTEIN 5.7 GM/DL (6.4-8.2)
--- NOTE | 2017-07-23 11:23 | HHI.PR ---
Subjective Remarks With nausea today. Also says pain is not much controlled by medications and started on oxycodone. Oxycodone seems helps better. Not able to keep down any food. Objective Vitals Vital Signs Date Time Temp Pulse Resp B/P (MAP) Pulse Ox O2 Delivery O2 Flow Rate FiO2 07/23/17 10:15 96 Room Air 07/23/17 08:06 98.2 72 16 108/54 (72) 96 07/23/17 04:00 98.2 61 18 112/59 (76) 98 07/23/17 04:00 Room Air 07/23/17 00:00 98.2 74 17 121/64 (83) 98 07/23/17 00:00 Room Air 07/22/17 20:59 92 21 07/22/17 20:00 98.1 82 18 127/70 (89) 95 07/22/17 20:00 Room Air 07/22/17 16:55 94 Room Air 07/22/17 16:10 98.0 68 20 128/61 (83) 94 07/22/17 13:41 96 Nasal Cannula 2.00 07/22/17 12:45 97.9 80 20 114/58 (76) 96 07/22/17 12:30 97.9 91 18 124/59 (80) 98 Nasal Cannula 2 07/22/17 12:15 96 14 121/57 (78) 94 Nasal Cannula 2 07/22/17 12:00 97 24 122/58 (79) 99 Nasal Cannula 2 07/22/17 11:46 98.4 123 21 135/62 (86) 99 Nasal Cannula 2 I/O 07/22/17 07/22/17 07/22/17 07/23/17 07/23/17 07/23/17 07:00 15:00 23:00 07:00 15:00 23:00 Intake Total 620 ml 1400 ml 1360 ml 1700 ml Output Total 25 ml Balance 620 ml 1375 ml 1360 ml 1700 ml Intake Oral 620 ml 0 ml 360 ml 700 ml IV Total 1000 ml 1000 ml Other 1400 ml Estimated Blood Loss 25 ml # Voids 2 0 3 5 # Bowel Movements 1 Result Diagram: 07/23/17 0826 07/23/17 0826 Imaging Last Impressions Cholangiogram 07/22/17 0000 Signed Impressions: Service Date/Time: Saturday, July 22, 2017 10:21 - CONCLUSION: No evidence of common duct stone. Michael Callahan MD Gall Bladder Ultrasound 07/21/17 0000 Signed Impressions: Service Date/Time: Friday, July 21, 2017 13:44 - CONCLUSION: Multiple gallstones with minimal gallbladder wall thickening. Tj Espinoza MD FACR Objective Remarks GENERAL: This is a well-nourished, well-developed patient, in no apparent distress. CARDIOVASCULAR: Regular rate and rhythm without murmurs, gallops, or rubs. RESPIRATORY: Clear to auscultation. Breath sounds equal bilaterally. No wheezes , rales, or rhonchi. GASTROINTESTINAL: Abdomen soft, Incision sites clean. non-tender, nondistended. Normal active bowel sounds MUSCULOSKELETAL: Extremities without clubbing, cyanosis, or edema. NEURO: Alert & Oriented x4 to person, place, time, situation. Moves all ext x4 A/P Problem List: (1) Acute cholecystitis ICD Code: K81.0 - Acute cholecystitis Status: Acute (2) Hypothyroidism ICD Code: E03.9 - Hypothyroidism, unspecified Status: Chronic (3) Hypertension ICD Code: I10 - Essential (primary) hypertension Status: Acute (4) Anxiety ICD Code: F41.9 - Anxiety disorder, unspecified (5) S/P laparoscopic cholecystectomy ICD Code: Z90.49 - Acquired absence of other specified parts of digestive tract (6) Ascites ICD Code: R18.8 - Other ascites (7) Acute pancreatitis ICD Code: K85.90 - Acute pancreatitis without necrosis or infection, unspecified Status: Acute Assessment and Plan 47-year-old female with a history of recent episode of acute pancreatitis who presents to the emergency department due to epigastric abdominal pain radiating to her back, nausea and vomiting. Gallbladder ultrasound during this admission shows multiple gallstones with minimal gallbladder wall thickening. Acute cholecystitis -GB US shows gallstones and wall thickening. -General surgery following. S/P laparoscopic cholecystectomy - On perioperative antibiotics. Should not need antibiotics after the course of perioperative antibiotics. Follow clinically - Advance to low fat diet - Antiemetics as needed. 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 -Can continue Lasix and spironolactone. -Liver biopsy pending Anxiety: Ativan as needed. Full code. Ambulation. Discharge Planning DC when cleared by surgery and nausea is controlled. Need outpatient follow up for liver biopsy results. Problem Qualifiers (1) Acute pancreatitis: Qualified Codes: K85.10 - Biliary acute pancreatitis without necrosis or infection Emilie Rajan MD July 23, 2017 11:23
[2017-07-23] MEDS: METOCLOPRAMIDE HCL 10 MG/2 ML VIAL IV PUSH PRN ×2 (11:47→23:12)
[2017-07-23] MEDS ORDERED: ONDANSETRON ODT 4 MG TAB PO PRN (12:30)
--- NOTE | 2017-07-23 13:26 | HHI.PR ---
cc: Junior Roche MD Subjective Subjective Notes DAILY PROGRESS NOTE FOR SURGICAL ATTENDING, DR. JUNIOR ROCHE Has multiple questions Two episodes of nausea today Does not like heart healthy Objective Vitals/I&O Vital Signs Date Time Temp Pulse Resp B/P (MAP) Pulse Ox O2 Delivery O2 Flow Rate FiO2 07/23/17 12:06 98.2 67 16 108/56 (73) 96 07/23/17 10:15 Room Air 07/22/17 20:59 21 07/22/17 13:41 2.00 Labs Laboratory Tests Test 07/23/17 08:26 White Blood Count 9.9 Red Blood Count 3.34 Hemoglobin 8.8 Hematocrit 27.4 Mean Corpuscular Volume 82.2 Mean Corpuscular Hemoglobin 26.2 Mean Corpuscular Hemoglobin Concent 31.9 Red Cell Distribution Width 20.2 Platelet Count 81 Mean Platelet Volume 8.9 Blood Urea Nitrogen 6 Creatinine 0.90 Random Glucose 131 Total Protein 5.7 Albumin 2.4 Calcium Level 7.7 Alkaline Phosphatase 85 Aspartate Amino Transf (AST/SGOT) 78 Alanine Aminotransferase (ALT/SGPT) 54 Total Bilirubin 2.1 Direct Bilirubin 1.3 Sodium Level 141 Potassium Level 3.9 Chloride Level 109 Carbon Dioxide Level 22.7 Anion Gap 9 Estimat Glomerular Filtration Rate 67 Indirect Bilirubin 0.8 Lipase 336 Radiology Last 48 hours Impressions Gall Bladder Ultrasound 07/21/17 0000 Signed Impressions: Service Date/Time: Friday, July 21, 2017 13:44 - CONCLUSION: Multiple gallstones with minimal gallbladder wall thickening. Tj Espinoza MD FACR Cardiovascular: Regular Lungs: Clear Abdomen: Other (lap sites with mildly bloody drainage; abd soft; minimally tender; ice pack in place ) Extremities: No edema A/P Problem List: (1) Acute cholecystitis ICD Codes: K81.0 - Acute cholecystitis Status: Acute (2) Elevated LFTs ICD Codes: R79.89 - Other specified abnormal findings of blood chemistry Status: Chronic (3) Acute pancreatitis ICD Codes: K85.90 - Acute pancreatitis without necrosis or infection, unspecified Status: Acute (4) Gallstones ICD Codes: K80.20 - Calculus of gallbladder without cholecystitis without obstruction Status: Chronic (5) Acute cholecystitis due to biliary calculus ICD Codes: K80.00 - Calculus of gallbladder with acute cholecystitis without obstruction Status: Acute (6) Esophageal varices ICD Codes: I85.00 - Esophageal varices without bleeding (7) Hypothyroidism ICD Codes: E03.9 - Hypothyroidism, unspecified Status: Chronic Assessment and Plan 47 year old female with symptomatic cholelithiasis; POD1 lap diandra with IOC -Reviewed operative images with patient -Regular diet--- encouraged small more frequent meals -DC IVF -Added Roxicodone for pain control -Home later today vs tomorrow depending on pain control and if she is tolerating a diet Attending Statement NOTE FOR SURGICAL ATTENDING, DR. JUNIOR ROCHE I agree with above assessment and plan. The exam, history, and the medical decision-making described in the above note were completed with the assistance of the mid-level provider. I reviewed and agree with the findings presented. I attest that I had a [id number] encounter with the patient on the same day, and personally performed and documented my assessment and findings in the medical record. The following services were provided during this hospital visit: Chart data review, vital sign assessments/reviewing monitor data Review of consultations notes if present. Medication orders/review and/or management Ordering and/or reviewing lab tests Ordering and/or interpreting/reviewing x-rays and/or diagnostic studies Care of the patient and discussion of the patient with the care team Documentation time To help prompt me to consider important information that might be impacting today's encounter and assessment, Information from prior notes written by myself or my colleagues may have been "brought forward/copy and pasted" into today's note. Problem Qualifiers (1) Acute pancreatitis: Qualified Codes: K85.10 - Biliary acute pancreatitis without necrosis or infection (2) Esophageal varices: Demi Albert/Hydraulic Elevator Constructor ELECTRONIC ORGAN TECHNICIAN July 23, 2017 13:26 Juinor Roche MD July 23, 2017 14:34
[2017-07-23] MEDS: HYDROmorphone HCL PF 0.5 MG/0.5 ML SYRINGE IV PUSH PRN (20:49)
[2017-07-23] MEDS: SODIUM CHLORIDE 0.9% FLUSH 10 ML FLUSH IV FLUSH PRN (23:13)
[2017-07-24] MEDS: HYDROmorphone HCL PF 0.5 MG/0.5 ML SYRINGE IV PUSH PRN ×2 (02:30→10:35)
[2017-07-24 04:02] VITALS: BP 109/52; PULSE 83; RESP 16; TEMP 98.9; O2SAT 94
[2017-07-24] MEDS: LORazepam 0.5 MG TAB PO PRN ×2 (05:27→13:19)
[2017-07-24] MEDS: LEVOTHYROXINE SODIUM 112 MCG TAB PO SCH (05:27)
[2017-07-24 08:03] VITALS: BP 126/60; PULSE 83; RESP 17; TEMP 98.6; O2SAT 96
[2017-07-24] MEDS: PANTOPRAZOLE SOD 40 MG DELAYED RELEASE TAB PO SCH (08:22)
[2017-07-24] MEDS: FUROSEMIDE 40 MG TAB PO SCH (08:22)
[2017-07-24] MEDS: SPIRONOLACTONE 50 MG TAB PO SCH (08:23)
[2017-07-24] MEDS: POTASSIUM CHLORIDE 10 MEQ CAP PO SCH (08:23)
[2017-07-24] MEDS: FOLIC ACID 1 MG TAB PO SCH (08:23)
[2017-07-24] MEDS: SODIUM CHLORIDE 0.9% FLUSH 10 ML FLUSH IV FLUSH SCH (08:24)
--- NOTE | 2017-07-24 08:26 | HHI.PR ---
Subjective Remarks Pain is better controlled by meds. No n/v/d/c. Able to tolerate food. Objective Vitals Vital Signs Date Time Temp Pulse Resp B/P (MAP) Pulse Ox O2 Delivery O2 Flow Rate FiO2 07/24/17 04:02 98.9 83 16 109/52 (71) 94 07/24/17 02:13 Room Air 07/23/17 23:40 98.4 71 16 117/62 (80) 96 07/23/17 21:25 98.2 65 16 118/59 (78) 97 07/23/17 17:53 98 21 07/23/17 17:11 98 Room Air 07/23/17 16:06 98.5 74 17 107/57 (74) 98 07/23/17 12:06 98.2 67 16 108/56 (73) 96 07/23/17 12:00 96 Room Air 07/23/17 10:15 96 Room Air I/O 07/23/17 07/23/17 07/23/17 07/24/17 07/24/17 07/24/17 07:00 15:00 23:00 07:00 15:00 23:00 Intake Total 1700 ml 840 ml 720 ml Output Total 550 ml Balance 1700 ml 840 ml 170 ml Intake Oral 700 ml 840 ml 720 ml IV Total 1000 ml Output Urine Total 550 ml # Voids 5 4 # Bowel Movements 0 0 Result Diagram: 07/23/17 0826 07/23/17 0826 Imaging Last Impressions Cholangiogram 07/22/17 0000 Signed Impressions: Service Date/Time: Saturday, July 22, 2017 10:21 - CONCLUSION: No evidence of common duct stone. Michael Callahan MD Gall Bladder Ultrasound 07/21/17 0000 Signed Impressions: Service Date/Time: Friday, July 21, 2017 13:44 - CONCLUSION: Multiple gallstones with minimal gallbladder wall thickening. Tj Espinoza MD FACR Objective Remarks GENERAL: This is a well-nourished, well-developed patient, in no apparent distress. CARDIOVASCULAR: Regular rate and rhythm without murmurs, gallops, or rubs. RESPIRATORY: Clear to auscultation. Breath sounds equal bilaterally. No wheezes , rales, or rhonchi. GASTROINTESTINAL: Abdomen soft, Incision sites clean. non-tender, nondistended. Normal active bowel sounds MUSCULOSKELETAL: Extremities without clubbing, cyanosis, or edema. NEURO: Alert & Oriented x4 to person, place, time, situation. Moves all ext x4 Procedures By Dr Rico on 07/22/17 : 1. Laparoscopic cholecystectomy. 2. Laparoscopic intraoperative cholangiogram. 3. Laparoscopic liver biopsy. A/P Problem List: (1) Acute cholecystitis ICD Code: K81.0 - Acute cholecystitis Status: Chronic (2) Hypothyroidism ICD Code: E03.9 - Hypothyroidism, unspecified Status: Chronic (3) Hypertension ICD Code: I10 - Essential (primary) hypertension Status: Acute (4) Anxiety ICD Code: F41.9 - Anxiety disorder, unspecified (5) S/P laparoscopic cholecystectomy ICD Code: Z90.49 - Acquired absence of other specified parts of digestive tract Status: Acute (6) Ascites ICD Code: R18.8 - Other ascites (7) Acute pancreatitis ICD Code: K85.90 - Acute pancreatitis without necrosis or infection, unspecified Status: Acute Assessment and Plan 47-year-old female with a history of recent episode of acute pancreatitis who presents to the emergency department due to epigastric abdominal pain radiating to her back, nausea and vomiting. Gallbladder ultrasound during this admission shows multiple gallstones with minimal gallbladder wall thickening. Acute cholecystitis GB US shows gallstones and wall thickening. General surgery following. S/P laparoscopic cholecystectomy On perioperative antibiotics. Should not need antibiotics after the course of perioperative antibiotics. Follow clinically Advance to low fat diet Antiemetics as needed. 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 Can continue Lasix and spironolactone. Liver biopsy pending Anxiety: Ativan as needed. Full code. Ambulation. Discharge Planning DC when cleared by surgery and nausea is controlled. Need outpatient follow up for liver biopsy results. Problem Qualifiers (1) Acute pancreatitis: Qualified Codes: K85.10 - Biliary acute pancreatitis without necrosis or infection Emilie Rajan MD July 24, 2017 08:26
[2017-07-24] MEDS ORDERED: OXYC-392 PO (08:29)
--- NOTE | 2017-07-24 08:30 | HHI.DS ---
Discharge Summary Admission Date July 22, 2017 at 13:02 Discharge Date: July 24, 2017 Admitting Diagnosis Acute cholecystitis (1) Acute cholecystitis ICD Code: K81.0 - Acute cholecystitis Status: Chronic (2) Hypothyroidism ICD Code: E03.9 - Hypothyroidism, unspecified Status: Chronic (3) Hypertension ICD Code: I10 - Essential (primary) hypertension Status: Acute (4) Anxiety ICD Code: F41.9 - Anxiety disorder, unspecified (5) S/P laparoscopic cholecystectomy ICD Code: Z90.49 - Acquired absence of other specified parts of digestive tract Status: Acute (6) Ascites ICD Code: R18.8 - Other ascites (7) Acute pancreatitis ICD Code: K85.90 - Acute pancreatitis without necrosis or infection, unspecified Status: Acute Procedures By Dr Rico on 07/22/17 : 1. Laparoscopic cholecystectomy. 2. Laparoscopic intraoperative cholangiogram. 3. Laparoscopic liver biopsy. Brief History - From Admission Ms. Joe is a pleasant 47-year-old female with a history of fatty liver, hypertension, hypothyroidism who presents to the emergency department today due to epigastric pain radiating to her back that started about 2 days prior to this admission. Patient was admitted on 07/08/2017 due to similar symptoms and was diagnosed with acute pancreatitis. Patient underwent MRCP as well as abdominal CT. Patient was discharged home with follow-up with general surgery. Tentative plan was to do surgery on 07/29/2017. Due to insurance issues, patient was not able to follow-up with general surgery in the outpatient setting. On arrival temperature 97.1 9F, pulse 72, respirations 16 , blood pressure 130/62, pulse oximetry 98% on room air. CBC BMP largely unremarkable except AST 109, ALT 71 and alk phos 116. Gallbladder ultrasound shows multiple gallstones with minimal gallbladder wall thickening. General surgery was consulted. CBC/BMP: 07/23/17 0826 07/23/17 0826 Significant Findings Laboratory Tests Test 07/21/17 13:00 07/21/17 13:25 07/22/17 04:55 07/23/17 08:26 Hemoglobin 10.9 GM/DL (11.6-15.3) 8.8 GM/DL (11.6-15.3) Hematocrit 33.2 % (35.0-46.0) 27.4 % (35.0-46.0) Mean Corpuscular Hemoglobin 26.8 PG (27.0-34.0) 26.2 PG (27.0-34.0) Red Cell Distribution Width 20.3 % (11.6-17.2) 20.2 % (11.6-17.2) Platelet Count 129 TH/MM3 (150-450) 81 TH/MM3 (150-450) Blood Urea Nitrogen 6 MG/DL (7-18) 6 MG/DL (7-18) 6 MG/DL (7-18) Random Glucose 124 MG/DL (74-106) 131 MG/DL (74-106) Albumin 2.9 GM/DL (3.4-5.0) 2.3 GM/DL (3.4-5.0) 2.4 GM/DL (3.4-5.0) Calcium Level 8.0 MG/DL (8.5-10.1) 7.4 MG/DL (8.5-10.1) 7.7 MG/DL (8.5-10.1) Aspartate Amino Transf (AST/SGOT) 109 U/L (15-37) 78 U/L (15-37) 78 U/L (15-37) Alanine Aminotransferase (ALT/SGPT) 71 U/L (10-53) 54 U/L (10-53) Total Bilirubin 3.5 MG/DL (0.2-1.0) 2.9 MG/DL (0.2-1.0) 2.1 MG/DL (0.2-1.0) Chloride Level 108 MEQ/L (98-107) 109 MEQ/L (98-107) 109 MEQ/L (98-107) Estimat Glomerular Filtration Rate 71 ML/MIN (>89) 62 ML/MIN (>89) 67 ML/MIN (>89) Lipase 789 U/L (73-393) 622 U/L (73-393) Urine Bacteria FEW /hpf (NONE) Prothrombin Time 16.2 SEC (9.8-11.6) Total Protein 5.6 GM/DL (6.4-8.2) 5.7 GM/DL (6.4-8.2) Potassium Level 3.3 MEQ/L (3.5-5.1) Protein Corrected Calcium 8.2 MG/DL (8.5-10.1) Red Blood Count 3.34 MIL/MM3 (4.00-5.30) Mean Corpuscular Hemoglobin Concent 31.9 % (32.0-36.0) Direct Bilirubin 1.3 MG/DL (0.0-0.2) Imaging Last Impressions Cholangiogram 07/22/17 0000 Signed Impressions: Service Date/Time: Saturday, July 22, 2017 10:21 - CONCLUSION: No evidence of common duct stone. Michael Callahan MD Gall Bladder Ultrasound 07/21/17 0000 Signed Impressions: Service Date/Time: Friday, July 21, 2017 13:44 - CONCLUSION: Multiple gallstones with minimal gallbladder wall thickening. Tj Espinoza MD FACR PE at Discharge GENERAL: This is a well-nourished, well-developed patient, in no apparent distress. CARDIOVASCULAR: Regular rate and rhythm without murmurs, gallops, or rubs. RESPIRATORY: Clear to auscultation. Breath sounds equal bilaterally. No wheezes , rales, or rhonchi. GASTROINTESTINAL: Abdomen soft, Incision sites clean. non-tender, nondistended. Normal active bowel sounds MUSCULOSKELETAL: Extremities without clubbing, cyanosis, or edema. NEURO: Alert & Oriented x4 to person, place, time, situation. Moves all ext x4 Hospital Course 47-year-old female with a history of recent episode of acute pancreatitis who presents to the emergency department due to epigastric abdominal pain radiating to her back, nausea and vomiting. Gallbladder ultrasound during this admission shows multiple gallstones with minimal gallbladder wall thickening. Acute cholecystitis GB US shows gallstones and wall thickening. General surgery following. S/P laparoscopic cholecystectomy On perioperative antibiotics. Should not need antibiotics after the course of perioperative antibiotics. Follow clinically Advance to low fat diet Antiemetics as needed. 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 Can continue Lasix and spironolactone. Liver biopsy pending Anxiety: Ativan as needed. Full code. Ambulation. Discharge Planning Cleared by surgery. Improved . DC home in stable condition to follow up as OP with PCP and consultants. Need outpatient follow up for liver biopsy results. Pt Condition on Discharge: Stable Discharge Disposition: Discharge Home Discharge Time: > 30 minutes Discharge Instructions DIET: Follow Instructions for: As Tolerated, No Restrictions Activities you can perform: Regular-No Restrictions Follow up Referrals: PCP Follow-up @ [facility] New Medications: Lorazepam (Ativan) 0.5 Mg Tab 0.5 MG PO Q8H PRN for ANXIETY AND/OR AGITATION, #10 TAB 0 Refills Ondansetron (Zofran) 4 Mg Tab 4 MG PO Q6HR PRN for NAUSEA OR VOMITING, #20 TAB 0 Refills Oxycodone (Oxycodone) 5 Mg Tab 5 MG PO Q4H PRN for pain , #20 TAB Continued Medications: Folic Acid (Folic Acid) 1 Mg Tablet 1 MG PO DAILY for vitamin, #30 TAB Furosemide (Lasix) 40 Mg Tab 40 MG PO DAILY for Diuretic, #30 TAB 0 Refills Levothyroxine (Levothyroxine) 112 Mcg Tab 1 TAB PO DAILY for thyroid, #30 TAB 0 Refills Metoprolol Tartrate (Metoprolol Tartrate) 25 Mg Tab 25 MG PO DAILY for heart, #30 TAB 0 Refills Pantoprazole (Pantoprazole) 40 Mg Tab 40 MG PO DAILY for Manage Heartburn, #30 TAB Potassium Chloride ER (Potassium Chloride ER) 10 Meq Cap 10 MEQ PO DAILY for Electrolyte Replacement, #30 CAP 0 Refills Spironolactone (Spironolactone) 50 Mg Tab 50 MG PO DAILY for heart, #30 TAB 0 Refills Discontinued Medications: Hydrocodone/Acetaminophen (Hydrocodone-Acetamin 5-325 mg) 5 Mg-325 Mg Tablet 1 TAB PO Q4H PRN for pain 1-10, #12 TAB Emilie Rajan MD July 24, 2017 08:30
[2017-07-24] MEDS ORDERED: LORA-392 PO (10:42)
[2017-07-24 12:03] VITALS: BP 138/67; PULSE 76; RESP 18; TEMP 98.5; O2SAT 97
[2017-07-24] MEDS ORDERED: ZOFR4TAB PO (12:04)
--- NOTE | 2017-07-24 14:58 | HHI.PR ---
cc: Junior Rico MD Subjective Subjective Notes DAILY PROGRESS NOTE FOR SURGICAL ATTENDING, DR. JUNIOR RICO Resting in bed Still with some abdominal pain but feels ready to go home Objective Vitals/I&O Vital Signs Date Time Temp Pulse Resp B/P (MAP) Pulse Ox O2 Delivery O2 Flow Rate FiO2 07/24/17 12:03 98.5 76 18 138/67 (90) 97 07/24/17 08:51 Room Air 07/23/17 17:53 21 07/22/17 13:41 2.00 Labs Laboratory Tests Test 07/21/17 13:00 07/21/17 13:25 07/22/17 04:55 07/23/17 08:26 Neutrophils (%) (Auto) 65.4 % Lymphocytes (%) (Auto) 23.4 % Monocytes (%) (Auto) 6.8 % Eosinophils (%) (Auto) 3.1 % Basophils (%) (Auto) 1.3 % Neutrophils # (Auto) 3.5 TH/MM3 Lymphocytes # (Auto) 1.3 TH/MM3 Monocytes # (Auto) 0.4 TH/MM3 Eosinophils # (Auto) 0.2 TH/MM3 Basophils # (Auto) 0.1 TH/MM3 CBC Comment DIFF FINAL Differential Comment Urine Color YELLOW Urine Turbidity CLEAR Urine pH 7.0 Urine Specific [place] 1.010 Urine Protein NEG mg/dL Urine Glucose (UA) NEG mg/dL Urine Ketones NEG mg/dL Urine Occult Blood NEG Urine Nitrite NEG Urine Bilirubin NEG Urine Urobilinogen 0.2 MG/DL Urine Leukocyte Esterase NEG Urine WBC 0-2 /hpf Urine Squamous Epithelial Cells 0-5 /hpf Urine Transitional Epithelial Cells 0-5 /hpf Urine Bacteria FEW /hpf Microscopic Urinalysis Comment CULT NOT INDICATED Prothrombin Time 16.2 SEC Prothromb Time International Ratio 1.6 RATIO Protein Corrected Calcium 8.2 MG/DL White Blood Count 9.9 TH/MM3 Red Blood Count 3.34 MIL/MM3 Hemoglobin 8.8 GM/DL Hematocrit 27.4 % Mean Corpuscular Volume 82.2 FL Mean Corpuscular Hemoglobin 26.2 PG Mean Corpuscular Hemoglobin Concent 31.9 % Red Cell Distribution Width 20.2 % Platelet Count 81 TH/MM3 Mean Platelet Volume 8.9 FL Blood Urea Nitrogen 6 MG/DL Creatinine 0.90 MG/DL Random Glucose 131 MG/DL Total Protein 5.7 GM/DL Albumin 2.4 GM/DL Calcium Level 7.7 MG/DL Alkaline Phosphatase 85 U/L Aspartate Amino Transf (AST/SGOT) 78 U/L Alanine Aminotransferase (ALT/SGPT) 54 U/L Total Bilirubin 2.1 MG/DL Direct Bilirubin 1.3 MG/DL Sodium Level 141 MEQ/L Potassium Level 3.9 MEQ/L Chloride Level 109 MEQ/L Carbon Dioxide Level 22.7 MEQ/L Anion Gap 9 MEQ/L Estimat Glomerular Filtration Rate 67 ML/MIN Indirect Bilirubin 0.8 MG/DL Lipase 336 U/L Radiology Last Impressions Cholangiogram 07/22/17 0000 Signed Impressions: Service Date/Time: Saturday, July 22, 2017 10:21 - CONCLUSION: No evidence of common duct stone. Michael Callahan MD Gall Bladder Ultrasound 07/21/17 0000 Signed Impressions: Service Date/Time: Friday, July 21, 2017 13:44 - CONCLUSION: Multiple gallstones with minimal gallbladder wall thickening. Tj Espinoza MD FACR Last 48 hours Impressions Gall Bladder Ultrasound 07/21/17 0000 Signed Impressions: Service Date/Time: Friday, July 21, 2017 13:44 - CONCLUSION: Multiple gallstones with minimal gallbladder wall thickening. Tj Espinoza MD FACR Cardiovascular: Regular Lungs: Clear Abdomen: Other (lap sites with minimal bloody drainage ), Post-op tenderness Extremities: No edema A/P Problem List: (1) S/P laparoscopic cholecystectomy ICD Codes: Z90.49 - Acquired absence of other specified parts of digestive tract Status: Acute (2) Acute cholecystitis ICD Codes: K81.0 - Acute cholecystitis Status: Chronic (3) Elevated LFTs ICD Codes: R79.89 - Other specified abnormal findings of blood chemistry Status: Chronic (4) Acute pancreatitis ICD Codes: K85.90 - Acute pancreatitis without necrosis or infection, unspecified Status: Acute (5) Gallstones ICD Codes: K80.20 - Calculus of gallbladder without cholecystitis without obstruction Status: Chronic (6) Acute cholecystitis due to biliary calculus ICD Codes: K80.00 - Calculus of gallbladder with acute cholecystitis without obstruction Status: Acute (7) Esophageal varices ICD Codes: I85.00 - Esophageal varices without bleeding (8) Hypothyroidism ICD Codes: E03.9 - Hypothyroidism, unspecified Status: Chronic Assessment and Plan 47 year old female with symptomatic cholelithiasis; POD2 lap diandra with IOC -Regular diet--- encouraged small more frequent meals -Pain controlled better with Roxicodone - clear for DC -Follow up next with Dr. Flynn (Dr. Trisha WARD) ---I explained to patient she is fine with this Attending Statement NOTE FOR SURGICAL ATTENDING, DR. JUNIOR RICO I agree with above assessment and plan. The exam, history, and the medical decision-making described in the above note were completed with the assistance of the mid-level provider. I reviewed and agree with the findings presented. The following services were provided during this hospital visit: Chart data review, vital sign assessments/reviewing monitor data Review of consultations notes if present. Medication orders/review and/or management Ordering and/or reviewing lab tests Ordering and/or interpreting/reviewing x-rays and/or diagnostic studies Care of the patient and discussion of the patient with the care team Documentation time To help prompt me to consider important information that might be impacting today's encounter and assessment, Information from prior notes written by myself or my colleagues may have been "brought forward/copy and pasted" into today's note. Problem Qualifiers (1) Acute pancreatitis: Qualified Codes: K85.10 - Biliary acute pancreatitis without necrosis or infection (2) Esophageal varices: Demi Albert/Wet Process [employer] AVIATION WARFARE SYSTEMS OPERATOR July 24, 2017 14:58 Junior Rico MD July 24, 2017 16:58
[2017-07-25] MEDS ORDERED: NORC5TAB PO (21:04)
[2017-07-25] MEDS ORDERED: CEPH-460 PO (21:04)
== END 2017-07-24 14:15 | disposition home or self-care (01) | DRG 418 ==
LOC: PHED 12:30 → PHEDA 14:49 → INTOOBSV 14:49 → N04B 16:48 → OBSVTOIN 07-22 13:02
PROVIDERS: ADMIT Hospitalist; ATTEND Hospitalist
PROC: 0FB04ZX Excision of Liver, Percutaneous Endoscopic Approach, Diagnostic (ICD-10-PCS; 2017-07-22)
PROC: BF131ZZ Fluoroscopy of Gallbladder and Bile Ducts using Low Osmolar Contrast (ICD-10-PCS; 2017-07-22)
PROC: 0FT44ZZ Resection of Gallbladder, Percutaneous Endoscopic Approach (ICD-10-PCS; principal; 2017-07-22 10:14)
DX: K85.10 Biliary acute pancreatitis without necrosis or infection (principal); K80.10 Calculus of gallbladder with chronic cholecystitis without obstruction; I85.00 Esophageal varices without bleeding; R18.8 Other ascites; K74.60 Unspecified cirrhosis of liver; I10 Essential (primary) hypertension; K76.0 Fatty (change of) liver, not elsewhere classified; E03.9 Hypothyroidism, unspecified; F41.9 Anxiety disorder, unspecified; K70.9 Alcoholic liver disease, unspecified; Z96.652 Presence of left artificial knee joint
CPT/HCPCS: 74300; 76705; 80048; 80053; 80076; 81001; 83690; 85025; 85027; 85610; 88304; 88307; 88313; 94664; 96361; 96365; 96375; 99285; G0378; J0131; J0696; J1100; J1170; J1885; J2175; J2250; J2405; J2543; J2710; J2765; J3010; J7030; J7120; J7613; Q9967

== ENCOUNTER 2017-07-25 15:08 | Emergency (ER) | END 2017-07-25 21:23 | disposition home or self-care (01) | DX: G89.18 Other acute postprocedural pain (principal); E03.9 Hypothyroidism, unspecified; I10 Essential (primary) hypertension | CPT/HCPCS: 71045; 74177; 80053; 81001; 83605; 84703; 85025; 85610; 85730; 87040; 96374; 96375; 99285; J1170; J2543; J7030; Q9967 ==

== ENCOUNTER 2017-08-20 03:04 | Emergency (ER) | payer MEDICAID ==
[~2017-08-20] VITALS: Ht 175.3 cm; Wt 79.2 kg
[~2017-08-20 03:04] MED LIST changes: +CEPH-460 PO; -HYDR-3516 PO; +LORA-392 PO; +NORC5TAB PO; +OXYC-392 PO; +ZOFR4TAB PO
[2017-08-20] MEDS ORDERED: IOHEXOL 350 MG/ML 10 ML VIAL (for RAD DIAG) IVCONTRAST ONE (03:05)
[2017-08-20 03:08] VITALS: BP 137/65; PULSE 93; RESP 18; TEMP 98.6; O2SAT 99
[2017-08-20] MEDS ORDERED: OXYC1TAB13 PO (03:18)
[2017-08-20] MEDS ORDERED: SODIUM CHLOR 0.9% 1000 ML INJ 1,000 ML IV SCH (03:32)
[2017-08-20] MEDS ORDERED: SODIUM CHLORIDE 0.9% FLUSH 10 ML FLUSH IV FLUSH PRN (03:45)
[2017-08-20] MEDS ORDERED: PANTOPRAZOLE SODIUM 40 MG VIAL IVP ONE (03:45)
[2017-08-20] MEDS ORDERED: ONDANSETRON HCL 4 MG/2 ML VIAL IVP ONE (03:45)
[2017-08-20 03:53] LABS: AUTOMATED NEUTROPHIL # 3.1 TH/MM3 (1.8-7.7); BASOPHIL % 0.7 % (0.0-2.0); EOSINOPHIL # 0.6 TH/MM3 (0-0.4); EOSINOPHIL % 10.2 % (0.0-4.0); HEMATOCRIT 31.2 % (35.0-46.0); HEMOGLOBIN 9.9 GM/DL (11.6-15.3); LYMPH % 25.5 % (9.0-44.0); LYMPHOCYTE # 1.5 TH/MM3 (1.0-4.8); MEAN CELL VOLUME 82.1 FL (80.0-100.0); MEAN CORPUSCULAR HGB CONC 31.6 % (32.0-36.0); MEAN PLATELET VOLUME 10.1 FL (7.0-11.0); MONO % 9.4 % (0.0-8.0); MONOCYTE # 0.5 TH/MM3 (0-0.9); NEUT % 54.2 % (16.0-70.0); PLATELET COUNT 82 TH/MM3 (150-450); RED CELL DISTRIBUTION WIDTH 17.3 % (11.6-17.2); WHITE BLOOD COUNT 5.7 TH/MM3 (4.0-11.0)
[2017-08-20 04:00] LABS: CHLORIDE 102 MEQ/L (98-107); SODIUM (NA) 138 MEQ/L (136-145)
[2017-08-20 04:02] LABS: BILIRUBIN, URINE NEG (NEG); BLOOD, URINE NEG (NEG); GLUCOSE,URINE NEG (NEG); KETONE, URINE NEG (NEG); NITRITE,URINE NEG (NEG); URINE COLOR YELLOW (YELLW/STRAW); URINE LEUKOCYTE ESTERASE NEG (NEG)
[2017-08-20 04:03] LABS: ALBUMIN 2.6 GM/DL (3.4-5.0); BLOOD UREA NITROGEN 5 MG/DL (7-18); CALCIUM 7.5 MG/DL (8.5-10.1); GLUCOSE,RANDOM 192 MG/DL (74-106)
[2017-08-20 04:06] LABS: RBC, URINE 0-2 /hpf (0-3); WBC, URINE 0-2 /hpf (0-5)
[2017-08-20 04:06] LABS: ALT (GPT) 28 U/L (10-53); GLOMERULAR FILTRATION RATE 67 ML/MIN (>89)
[2017-08-20 04:07] LABS: AST (GOT) 33 U/L (15-37)
[2017-08-20 04:08] LABS: TOTAL BILIRUBIN ADULT 1.5 MG/DL (0.2-1.0); TOTAL PROTEIN 6.2 GM/DL (6.4-8.2)
[2017-08-20 04:09] LABS: ALKALINE PHOSPHATASE 115 U/L (45-117)
[2017-08-20] MEDS ORDERED: KETOROLAC TROMETHAMINE 30 MG/ML (IVP) VIAL IV PUSH ONE (04:30)
--- NOTE | 2017-08-20 04:57 | RADRPT ---
EXAM DATE: 08/20/2017 4:43 AM EDT AGE/SEX: 47 years / Female INDICATIONS: Abdomen pain. History of pancreatitis. CLINICAL DATA: This is the patient's initial encounter. Patient reports that signs and symptoms have been present for 3 days and indicates a pain score of 7/10. MEDICAL/SURGICAL HISTORY: Cardiovascular disease. Hypertension. Pancreatitis. Cholecystectomy . ORAL CONTRAST: No oral contrast ingested. RADIATION DOSE: 13.40 CTDI (mGy) COMPARISON: [facility] – [place], CT ABDOMEN & PELVIS W CONTRAST, 07/25/2017. . TECHNIQUE: Multiple contiguous axial images were obtained through the abdomen and pelvis following b olus infusion of 90 ml Omnipaque 350 (iohexol) nonionic water-soluble contrast as a single exam dos e. No oral contrast ingested. Using automated exposure control and adjustment of the mA and/or kV ac cording to patient size, the radiation dose was kept as low as reasonably achievable to obtain optima l diagnostic quality images. FINDINGS: Lower Lungs: The visualized lower lungs are clear. Liver: Mild diffuse nodularity of the liver capsule suggesting possible cirrhosis. 1 cm hypodensity i n the left lobe unchanged. Recanalized periumbilical vein again noted. Varices in the upper abdomen a gain noted suggesting portal venous hypertension. Status post cholecystectomy. Spleen: Splenomegaly again seen with the spleen measuring 15.5 cm in craniocaudal dimension. Pancreas: Mild hazy opacity in the central mesenteric fat just inferior to the pancreas. Pancreas is homogeneous and within normal limits. Kidneys: Normal in size and shape. No evidence of mass or hydronephrosis. Adrenal Glands: Unremarkable. Aorta: The aorta and proximal iliac vessels are grossly unremarkable without aneurysmal dilation. Bowel/Mesentery: No evidence of bowel dilatation. Small amount of free fluid in the dependent portio n of the pelvis and in the upper abdomen. Appendix not identified. No evidence of free air. Abdominal Wall: Intact. Retroperitoneum: No evidence of adenopathy in the retrocrural, para-aortic, or deep pelvic regions. Bladder: Contours are smooth. Reproductive Organs: No abnormal masses or calcifications seen. Inguinal: The inguinal region is unremarkable without evidence of adenopathy. Bony Structures: Prominent facet arthrosis of the lower lumbar spine. CONCLUSION: 1. Findings very similar to the prior study of 07/25/2017. Evidence of cirrhosis, splenomegaly, and p ortal venous hypertension again seen with varices in the splenic hilum and gastroesophageal region as well as recanalized periumbilical vein. 2. Status post cholecystectomy. 3. Central mesenteric edema again identified just inferior to the pancreas. This could represent mil d findings of acute pancreatitis. No organized fluid collections. Electronically signed by: Moises Bates MD 08/20/2017 4:56 AM EDT
[2017-08-20 05:01] VITALS: BP 119/60; PULSE 66; RESP 16; O2SAT 97
--- NOTE | 2017-08-20 05:38 | PD ---
HPI Chief Complaint: Abdominal Pain Time Seen by Provider: 03:23 Travel History International Travel<30 days: No Contact w/Intl Traveler<30days: No History of Present Illness HPI 47-year-old female with a past medical history of liver cirrhosis, hepatosplenomegaly, recent cholecystectomy due to gallstone pancreatitis presents to the emergency room with acute exacerbation of the epigastric pain with nausea and vomiting. Patient rates the pain as mild to moderate. Patient reports that the pain that she has is similar to that when she had acute pancreatitis on July 07. Patient denies drinking alcohol recently. Patient denies any rectal bleeding or hematemesis. PFSH Past Medical History Hx Anticoagulant Therapy: Yes (8 WEEKS AGO) Asthma: No Autoimmune Disease: No Anxiety: Yes Depression: No Heart Rhythm Problems: No Cancer: No Cardiac Catheterization: Yes (NO STENTS: 2014) Cardiovascular Problems: Yes High Cholesterol: No Chest Pain: Yes Congestive Heart Failure: No Cirrhosis: Yes (MILD) COPD: No Cerebrovascular Accident: No Diabetes: No Diminished Hearing: No Gastrointestinal Disorders: Yes Genitourinary: No Headaches: Yes Hiatal Hernia: Yes Hypertension: Yes Immune Disorder: No Musculoskeletal: Yes Neurologic: Yes Psychiatric: Yes Reproductive: No Respiratory: Yes (history of nosebleeds) Immunizations Current: Yes Migraines: Yes Pancreatitis: Yes Pneumonia: Yes Seizures: No Sleep Apnea: No Thyroid Disease: Yes (Hypothyroidism) Tetanus Vaccination: > 5 Years ?: Not LMP: 08/07/17 "ONLY SPOTTED" : 5 Para: 3 Miscarriage: 2 Ovarian Cysts: Yes (BILATERAL) Past Surgical History Abdominal Surgery: No Body Medical Devices: 2 screws in her knee from acl surgery. Cardiac Surgery: No Cholecystectomy: Yes Ear Surgery: No Endocrine Surgery: No Eye Surgery: Yes (Lasik) Genitourinary Surgery: No Gynecologic Surgery: No Oral Surgery: No Thoracic Surgery: No Other Surgery: Yes (lt knee replacement WITH PATELLA TENDON) Social History Alcohol Use: No (QUIT JUNE 2016) Tobacco Use: No Substance Use: No Allergies-Medications (Allergen,Severity, Reaction): Coded Allergies: acetaminophen (Unverified Allergy, Severe, 08/20/17) HIVES codeine (Unverified Allergy, Severe, 08/20/17) RASH propoxyphene (Unverified Allergy, Severe, 08/20/17) HIVES clarithromycin (Unverified Allergy, Intermediate, VOMITING, 08/20/17) morphine (Unverified Allergy, Unknown, HALUCINATIONS, 08/20/17) Reported Meds & Prescriptions Reported Meds & Active Scripts Active Jewett (Hydrocodone-Acetaminophen) 5 Mg-325 Mg Tab 1 Tab PO Q6H PRN Zofran (Ondansetron HCl) 4 Mg Tab 4 Mg PO Q6HR PRN Ativan (Lorazepam) 0.5 Mg Tab 0.5 Mg PO Q8H PRN Lasix (Furosemide) 40 Mg Tab 40 Mg PO DAILY Metoprolol Tartrate 25 Mg Tab 25 Mg PO DAILY Spironolactone 50 Mg Tab 50 Mg PO DAILY Folic Acid 1 Mg Tablet 1 Mg PO DAILY Potassium Chloride ER (Potassium Chloride) 10 Meq Cap 10 Meq PO DAILY Pantoprazole (Pantoprazole Sodium) 40 Mg Tab 40 Mg PO DAILY Levothyroxine (Levothyroxine Sodium) 112 Mcg Tab 1 Tab PO DAILY Reported Roxicodone (Oxycodone HCl) 5 Mg Tab 5 Mg PO Q4HR Review of Systems Except as stated in HPI: all other systems reviewed are Neg General / Constitutional: No: Fever, Chills Eyes: No: Blurred Vision, Redness, Pain HENT: No: Rhinorrhea, Congestion, Neck Stiffness, Neck Pain, Earache Cardiovascular: No: Chest Pain or Discomfort, Palpitations, Dyspnea on exertion Respiratory: No: Cough, Shortness of Breath, Wheezing Gastrointestinal: Positive: Nausea, Vomiting, Abdominal Pain, No: Diarrhea, Hematochezia, Constipation Genitourinary: No: Dysuria Musculoskeletal: No: Myalgias Skin: No Rash, No Hives Neurologic: No: Weakness, Dizziness, Syncope, Headache, Slurred Speech, Seizures Psychiatric: No: Suicidal Ideations Physical Exam Narrative Vital Signs Date Time Temp Pulse Resp B/P (MAP) Pulse Ox O2 Delivery O2 Flow Rate FiO2 08/20/17 05:01 66 16 119/60 (79) 97 Room Air 08/20/17 03:08 98.6 93 18 137/65 (89) 99 GENERAL: Patient is alert and oriented -3 SKIN: Focused skin assessment warm/dry. HEAD: Atraumatic. Normocephalic. EYES: Pupils equal and round. No scleral icterus. No injection or drainage. ENT: No nasal bleeding or discharge. Mucous membranes pink and moist. NECK: Trachea midline. No JVD. CARDIOVASCULAR: Regular rate and rhythm. No murmur appreciated. RESPIRATORY: No accessory muscle use. Clear to auscultation. Breath sounds equal bilaterally. GASTROINTESTINAL: Abdomen soft, mild epigastric tenderness, nondistended. Hepatic and splenic margins not palpable. MUSCULOSKELETAL: No obvious deformities. No clubbing. No cyanosis. No edema. NEUROLOGICAL: Awake and alert. No obvious cranial nerve deficits. Motor grossly within normal limits. Normal speech. PSYCHIATRIC: Appropriate mood and affect; insight and judgment normal. Data Data Last Documented VS Vital Signs Date Time Temp Pulse Resp B/P (MAP) Pulse Ox O2 Delivery O2 Flow Rate FiO2 08/20/17 05:53 08/20/17 05:01 66 16 97 Room Air 08/20/17 03:08 98.6 Vital Signs Date Time Temp Pulse Resp B/P (MAP) Pulse Ox O2 Delivery O2 Flow Rate FiO2 08/20/17 05:53 08/20/17 05:01 66 16 119/60 (79) 97 Room Air 08/20/17 03:08 98.6 93 18 137/65 (89) 99 Last 24 hours Impressions Abdomen/Pelvis CT 08/20/17 0000 Signed Impressions: CONCLUSION: 1. Findings very similar to the prior study of 07/25/2017. Evidence of cirrhosi s, splenomegaly, and portal venous hypertension again seen with varices in the splenic hilum and gastroesophageal region as well as recanalized periumbilical vein. 2. Status post cholecystectomy. 3. Central mesenteric edema again identified just inferior to the pancreas. Th is could represent mild findings of acute pancreatitis. No organized fluid janet ections. Orders Orders Complete Blood Count With Diff (08/20/17 03:32) Comprehensive Metabolic Panel (08/20/17 03:32) Lipase (08/20/17 03:32) Lactic Acid (08/20/17 03:32) Urinalysis - C+S If Indicated (08/20/17 03:32) Iv Access Insert/Monitor (08/20/17 03:32) Ecg Monitoring (08/20/17 03:32) Oximetry (08/20/17 03:32) Ondansetron Inj (Zofran Inj) (08/20/17 03:45) Pantoprazole Inj (Protonix Inj) (08/20/17 03:45) Sodium Chlor 0.9% 1000 Ml Inj (Ns 1000 M (08/20/17 03:32) Sodium Chloride 0.9% Flush (Ns Flush) (08/20/17 03:45) Electrocardiogram (08/20/17 03:32) Ct Abd/Pel W Iv Contrast(Rout) (08/20/17 ) Ketorolac Inj (Toradol Inj) (08/20/17 04:30) Iohexol 350 Inj (Omnipaque 350 Inj) (08/20/17 03:05) Ed Discharge Order (08/20/17 05:38) Labs Laboratory Tests Test 08/20/17 03:40 08/20/17 03:50 White Blood Count 5.7 TH/MM3 Red Blood Count 3.80 MIL/MM3 Hemoglobin 9.9 GM/DL Hematocrit 31.2 % Mean Corpuscular Volume 82.1 FL Mean Corpuscular Hemoglobin 26.0 PG Mean Corpuscular Hemoglobin Concent 31.6 % Red Cell Distribution Width 17.3 % Platelet Count 82 TH/MM3 Mean Platelet Volume 10.1 FL Neutrophils (%) (Auto) 54.2 % Lymphocytes (%) (Auto) 25.5 % Monocytes (%) (Auto) 9.4 % Eosinophils (%) (Auto) 10.2 % Basophils (%) (Auto) 0.7 % Neutrophils # (Auto) 3.1 TH/MM3 Lymphocytes # (Auto) 1.5 TH/MM3 Monocytes # (Auto) 0.5 TH/MM3 Eosinophils # (Auto) 0.6 TH/MM3 Basophils # (Auto) 0.0 TH/MM3 CBC Comment DIFF FINAL Differential Comment Blood Urea Nitrogen 5 MG/DL Creatinine 0.90 MG/DL Random Glucose 192 MG/DL Total Protein 6.2 GM/DL Albumin 2.6 GM/DL Calcium Level 7.5 MG/DL Alkaline Phosphatase 115 U/L Aspartate Amino Transf (AST/SGOT) 33 U/L Alanine Aminotransferase (ALT/SGPT) 28 U/L Total Bilirubin 1.5 MG/DL Sodium Level 138 MEQ/L Potassium Level 3.0 MEQ/L Chloride Level 102 MEQ/L Carbon Dioxide Level 27.0 MEQ/L Anion Gap 9 MEQ/L Estimat Glomerular Filtration Rate 67 ML/MIN Lactic Acid Level 2.0 mmol/L Lipase 1043 U/L Urine Color YELLOW Urine Turbidity CLEAR Urine pH 6.0 Urine Specific [place] LESS/EQUAL 1.005 Urine Protein NEG mg/dL Urine Glucose (UA) NEG mg/dL Urine Ketones NEG mg/dL Urine Occult Blood NEG Urine Nitrite NEG Urine Bilirubin NEG Urine Urobilinogen 1.0 MG/DL Urine Leukocyte Esterase NEG Urine RBC 0-2 /hpf Urine WBC 0-2 /hpf Urine Squamous Epithelial Cells 6-8 /hpf Urine Bacteria NONE /hpf Microscopic Urinalysis Comment CULT NOT INDICATED MDM Medical Decision Making Medical Screen Exam Complete: Yes Emergency Medical Condition: Yes Medical Record Reviewed: Yes Differential Diagnosis Pancreatitis, hepatitis, gastroenteritis, peptic ulcer disease, gallstone ileus, Narrative Course Patient condition improved after pain medications and IV fluids. Labs and CAT scan results were reviewed and discussed with the patient. I will discharge the patient home to follow-up with primary care physician or return to the emergency room if conditions worsens. Diagnosis Primary Impression: Hypertension Additional Impression: Acute pancreatitis Referrals: Fabienne Duran MD 2 days Patient Instructions: Alcoholic Hepatitis (ED), General Instructions, Pancreatitis (DC) Disposition: 01 DISCHARGE HOME Condition: Stable Mahesh Tee MD Aug 20, 2017 05:38
--- NOTE | 2017-08-20 09:01 | EKG ---
Date Performed: 08/20/2017 Time Performed: 03:55:01 PTAGE: 47 years EKG: Sinus rhythm MINIMAL ST DEPRESSION BORDERLINE ECG PREVIOUS TRACING : 07/09/2017 18.10 DOCTOR: Robert Sandoval Interpretating Date/Time 08/20/2017 09:01:20
== END 2017-08-20 05:55 | disposition home or self-care (01) ==
LOC: PHED 03:04
DX: I10 Essential (primary) hypertension (principal); K85.90 Acute pancreatitis without necrosis or infection, unspecified; K74.60 Unspecified cirrhosis of liver; R16.1 Splenomegaly, not elsewhere classified; F41.9 Anxiety disorder, unspecified; E03.9 Hypothyroidism, unspecified; Z79.899 Other long term (current) drug therapy; Z88.6 Allergy status to analgesic agent; Z87.01 Personal history of pneumonia (recurrent); Z88.5 Allergy status to narcotic agent; Z88.8 Allergy status to other drugs, medicaments and biological substances
CPT/HCPCS: 74177; 80053; 81001; 83605; 83690; 85025; 93005; 96361; 96374; 96375; 99285; C9113; J1885; J2405; J7030; Q9967